=== PATIENT | male | born 1940 | race Caucasian/White ===

== ENCOUNTER 2018-03-05 17:25 | Inpatient (IN) | payer MEDICARE, MEDICAID ==
[~2018-03-05] VITALS: Ht 185.4 cm; Wt 84.3 kg
[~2018-03-05 17:25] MED LIST: ALBU8.5H8 IH; AMLO10TA PO; ATEN100T PO; CHLO25TA2 PO; LANTUS SQ; LEVO500T89 PO; METF-438 PO; PRED10TA23 PO; ZOL50T PO
[2018-03-05 18:10] LABS: BASOPHILS # (AUTO) 0.1 X10'3 (0-0.2); BASOPHILS % (AUTO) 0.5 % (0-1); EOSINOPHILS % (AUTO) 0 % (0-6); HEMOGLOBIN 15.7 g/dl (14.0-17.9); LYMPHOCYTES # (AUTO) 1.1 X10'3 (1.1-4.8); LYMPHOCYTES % (AUTO) 5.3 % (21-51); MEAN CORPUSCULAR HEMOGLOBIN 29.3 PG (27.0-31.0); MEAN CORPUSCULAR HGB CONC 33.5 % (33.0-36.5); MEAN CORPUSCULAR VOLUME 87.5 FL (78-98); MEAN PLATELET VOLUME 9.7 FL (7.4-10.4); MONOCYTES # (AUTO) 1.2 X10'3 (0-0.9); MONOCYTES % (AUTO) 5.8 % (2-12); NEUTROPHILS # (AUTO) 17.9 X10'3 (1.8-7.7); NEUTROPHILS % (AUTO) 88.4 % (42-75); PLATELET COUNT 260 X10'3 (140-440); RED BLOOD COUNT 5.36 X10'6 (4.70-6.10); RED CELL DISTRIBUTION WIDTH 13.9 % (11.5-14.5); WHITE BLOOD COUNT 20.3 X10'3 (4.5-11.0)
[2018-03-05] MEDS ORDERED: ondansetron/PF 4mg/2ml inj IV ONE (18:15)
[2018-03-05] MEDS ORDERED: normal saline 1000ML IV soln IVB ONE (18:15)
[2018-03-05 18:35] LABS: ALANINE AMINOTRANSFERASE 26 U/L (12-78); ALBUMIN 3.6 G/DL (3.4-5.0); ALBUMIN/GLOBULIN RATIO 0.9 (1.1-1.5); ALKALINE PHOSPHATASE 131 IU/L (46-116); ANION GAP 18 (8-16); ASPARTATE AMINO TRANSFERASE 15 U/L (10-37); BILIRUBIN,TOTAL 0.7 MG/DL (0.1-1.0); BLOOD UREA NITROGEN 33 MG/DL (7-18); BUN/CREATININE RATIO 19.2 (5.4-32.0); CALCIUM 9.8 MG/DL (8.5-10.1); CHLORIDE 90 MMOL/L (99-107); CREATININE 1.72 MG/DL (0.60-1.10); MAGNESIUM 2.1 MG/DL (1.5-2.4); POTASSIUM 3.8 MMOL/L (3.5-5.1); SODIUM 128 MMOL/L (135-145); TOTAL CARBON DIOXIDE 20.5 MMOL/L (24-32); TOTAL PROTEIN 7.6 G/DL (6.4-8.2); eGFR 39 ML/MIN
[2018-03-05 18:38] LABS: GLUCOSE 686 MG/DL (70-104)
[2018-03-05 18:47] LABS: CLARITY,URINE SLIGHTLY CLOUDY (Clear); COLOR,URINE YELLOW (Yellow); GLUCOSE, URINE >=1000 mg/dl (Neg); KETONES,URINE 15 mg/dl (Neg); LEUKOCYTE ESTERASE ,URINE NEGATIVE (Neg); NITRITES, URINE NEGATIVE (Neg); OCCULT BLOOD,URINE LARGE (Neg); PROTEIN,URINE 100 mg/dl (Neg); UROBILINOGEN,URINE 0.2 E.U/dL (0.2-1.0)
[2018-03-05] MEDS ORDERED: heparin 10,000 units/1 ML INJ IV ONE (18:50)
[2018-03-05] MEDS ORDERED: heparin 10,000 units/1 ML INJ IV PRN (18:50)
[2018-03-05] MEDS ORDERED: insulin regular, human 10 units/0.1 ml syringe SQ PRN ×2 (18:50→20:40)
[2018-03-05 18:51] LABS: UA COLLECTION TYPE STRAIGHT CATH
[2018-03-05 18:55] LABS: RBC,URINE 20-50 /HPF (0-2)
[2018-03-05 18:56] LABS: BACTERIA,URINE FEW /HPF (Neg); SQUAMOUS EPITHELIAL CELL,UR FEW /LPF (FEW); YEAST FEW /HPF (NEGATIVE)
[2018-03-05] MEDS: normal saline 1000ml 1,000 ML IV SCH ×2 (19:16→19:33)
[2018-03-05 19:17] LABS: PARTIAL THROMBOPLASTIN TIME 28 SECONDS (22-32); PROTHROMBIN TIME 10.3 SECONDS (9.0-12.0)
[2018-03-05] MEDS ORDERED: metoclopramide 5 mg/ml inj IV ONE (19:20)
[2018-03-05] MEDS: insulin regular, DKA only 100 UNIT in normal saline 100ml IV soln 99 ML IV SCH ×2 (20:12)
[2018-03-05] MEDS ORDERED: potassium CL 20mEq in D5-1/2NS 1,000 ML IV PRN (20:37)
[2018-03-05] MEDS ORDERED: insulin regular, DKA only 100 UNIT in normal saline 100ml IV soln 99 ML IV SCH ×2 (20:37)
[2018-03-05] MEDS ORDERED: sodium bicarbonate (8.4%) inj. 50 MEQ in dextrose 5% water 500ml 250 ML IV PRN (20:37)
[2018-03-05] MEDS ORDERED: sodium bicarbonate (8.4%) inj. 100 MEQ in dextrose 5% water 500ml 500 ML IV PRN (20:37)
[2018-03-05] MEDS ORDERED: proCHLORperazine 10 MG/2 ml inj IV PRN (20:40)
[2018-03-05] MEDS ORDERED: potassium Cl 40MEQ/NS 500ml 500 ML IV PRN ×4 (20:40)
[2018-03-05] MEDS ORDERED: morphine 4 MG/ML inj SYRINge IV PRN (20:40)
[2018-03-05] MEDS ORDERED: potassium Cl 20 mEq SR tablet PO PRN ×3 (20:40)
[2018-03-05] MEDS ORDERED: LORazepam 2 mg/ml vial IV ONE (20:40)
[2018-03-05] MEDS ORDERED: sodium phosphate inj. 30 MMOL in dextrose 5%-water 250 ML IV PRN (20:40)
[2018-03-05] MEDS ORDERED: sodium phosphate inj. 15 MMOL in dextrose 5%-water 150 ML IV PRN (20:40)
[2018-03-05] MEDS ORDERED: acetaminophen 325mg tablet PO PRN ×2 (20:40)
[2018-03-05] MEDS ORDERED: Neutra Phos packet PO PRN (20:40)
[2018-03-05 22:19] VITALS: BP 158/72
[2018-03-05 23:00] VITALS: BP 129/56
[2018-03-06] VITALS (23 sets, daily range): BP systolic 126–168; BP diastolic 56–85
[2018-03-06 00:09] LABS: ALBUMIN 2.8 G/DL (3.4-5.0); ANION GAP 12 (8-16); BLOOD UREA NITROGEN 27 MG/DL (7-18); BUN/CREATININE RATIO 19.6 (5.4-32.0); CALCIUM 8.3 MG/DL (8.5-10.1); CHLORIDE 103 MMOL/L (99-107); CREATININE 1.38 MG/DL (0.60-1.10); GLUCOSE 261 MG/DL (70-104); PHOSPHORUS 2.5 MG/DL (2.3-4.5); SODIUM 137 MMOL/L (135-145); TOTAL CARBON DIOXIDE 22.4 MMOL/L (24-32); eGFR 50 ML/MIN
[2018-03-06 00:13] LABS: POTASSIUM 2.9 MMOL/L (3.5-5.1)
[2018-03-06] MEDS: insulin regular, DKA only 100 UNIT in normal saline 100ml IV soln 99 ML IV SCH ×6 (00:17→05:26)
[2018-03-06] MEDS ORDERED: heparin 10,000 units/1 ML INJ IV PRN (00:35)
[2018-03-06] MEDS: normal saline 1000ml 1,000 ML IV SCH ×3 (00:37→04:37)
[2018-03-06] MEDS: potassium CL 20mEq in D5-1/2NS 1,000 ML IV PRN ×2 (00:39→05:12)
[2018-03-06] MEDS: K, MAG and/or Phos replacement - Verify level? MC SCH ×2 (00:49→08:00)
[2018-03-06 04:57] LABS: BASOPHILS # (AUTO) 0.1 X10'3 (0-0.2); BASOPHILS % (AUTO) 0.3 % (0-1); EOSINOPHILS # (AUTO) 0.2 X10'3 (0-0.9); EOSINOPHILS % (AUTO) 0.8 % (0-6); HEMATOCRIT 39.2 % (42.0-52.0); HEMOGLOBIN 13.6 g/dl (14.0-17.9); LYMPHOCYTES % (AUTO) 10.1 % (21-51); MEAN CORPUSCULAR HEMOGLOBIN 30.1 PG (27.0-31.0); MEAN CORPUSCULAR HGB CONC 34.8 % (33.0-36.5); MEAN CORPUSCULAR VOLUME 86.6 FL (78-98); MEAN PLATELET VOLUME 9.1 FL (7.4-10.4); MONOCYTES # (AUTO) 1.5 X10'3 (0-0.9); MONOCYTES % (AUTO) 7.4 % (2-12); NEUTROPHILS # (AUTO) 16.4 X10'3 (1.8-7.7); NEUTROPHILS % (AUTO) 81.4 % (42-75); PLATELET COUNT 231 X10'3 (140-440); RED BLOOD COUNT 4.53 X10'6 (4.70-6.10); RED CELL DISTRIBUTION WIDTH 13.9 % (11.5-14.5); WHITE BLOOD COUNT 20.2 X10'3 (4.5-11.0)
[2018-03-06 04:59] LABS: HEMOGLOBIN A1C 11.5 % (4.5-6.2)
[2018-03-06 05:04] LABS: PROTHROMBIN TIME 10.4 SECONDS (9.0-12.0)
[2018-03-06 05:10] LABS: ALANINE AMINOTRANSFERASE 22 U/L (12-78); ALBUMIN 2.7 G/DL (3.4-5.0); ALBUMIN/GLOBULIN RATIO 0.9 (1.1-1.5); ALKALINE PHOSPHATASE 87 IU/L (46-116); ANION GAP 11 (8-16); ASPARTATE AMINO TRANSFERASE 17 U/L (10-37); BILIRUBIN,TOTAL 0.5 MG/DL (0.1-1.0); BLOOD UREA NITROGEN 24 MG/DL (7-18); BUN/CREATININE RATIO 18.8 (5.4-32.0); CHLORIDE 106 MMOL/L (99-107); CREATININE 1.28 MG/DL (0.60-1.10); GLUCOSE 77 MG/DL (70-104); POTASSIUM 3.2 MMOL/L (3.5-5.1); SODIUM 140 MMOL/L (135-145); TOTAL PROTEIN 5.8 G/DL (6.4-8.2); eGFR 55 ML/MIN
[2018-03-06 05:13] LABS: PHOSPHORUS 1.9 MG/DL (2.3-4.5)
[2018-03-06] MEDS ORDERED: enoxaparin 40mg/0.4ml syringe SUBCUT SCH (08:00)
[2018-03-06] MEDS: K and/or MAG REPLACEMENT MC SCH (08:00)
[2018-03-06] MEDS ORDERED: dextrose 50%-water 50ml dispensing syringe IV PRN ×2 (09:15)
[2018-03-06] MEDS ORDERED: glucagon, human recombinant 1mg kit SUBCUT PRN (09:15)
[2018-03-06] MEDS ORDERED: dextrose ORAL solution 15 GM/59 ML bottle PO PRN ×2 (09:15)
[2018-03-06] MEDS ORDERED: MESSAGE TO PHARMACY PO ONE (09:15)
[2018-03-06] MEDS: potassium cl 20mEq in 1/2 NS 1,000 ML IV SCH ×2 (09:49→19:46)
[2018-03-06] MEDS: pantoprazole 40mg Tablet.DR PO SCH (09:49)
[2018-03-06] MEDS: insulin Lispro (HumaLOG) vial - multi-dose SQ SCH ×3 (10:38→19:52)
[2018-03-06] MEDS ORDERED: INSU100I31 SQ (11:48)
[2018-03-06] MEDS ORDERED: GABA-532 PO (11:51)
[2018-03-06] MEDS: levoFLOXACIN-Levaquin 500mg/D5 100 ML IV SCH (12:27)
[2018-03-06] MEDS: ondansetron/PF 4mg/2ml inj IV PRN (13:34)
[2018-03-06] MEDS: morphine 2 MG/ML inj. syringe IV PRN (19:54)
[2018-03-06] MEDS ORDERED: insulin glargine (Lantus) pen - multi-dose SQ SCH (21:00)
[2018-03-06] MEDS: temazepam 15mg capsule PO PRN (22:19)
[2018-03-07] VITALS (24 sets, daily range): BP systolic 113–168; BP diastolic 47–96
[2018-03-07] MEDS: ondansetron/PF 4mg/2ml inj IV PRN (03:04)
[2018-03-07] MEDS: morphine 2 MG/ML inj. syringe IV PRN (03:04)
[2018-03-07 05:04] LABS: BASOPHILS % (AUTO) 0.5 % (0-1); EOSINOPHILS # (AUTO) 0.1 X10'3 (0-0.9); EOSINOPHILS % (AUTO) 1.7 % (0-6); HEMOGLOBIN 11.8 g/dl (14.0-17.9); LYMPHOCYTES # (AUTO) 1.4 X10'3 (1.1-4.8); LYMPHOCYTES % (AUTO) 16.3 % (21-51); MEAN CORPUSCULAR HEMOGLOBIN 29.5 PG (27.0-31.0); MEAN CORPUSCULAR HGB CONC 33.6 % (33.0-36.5); MEAN CORPUSCULAR VOLUME 87.8 FL (78-98); MEAN PLATELET VOLUME 9.6 FL (7.4-10.4); MONOCYTES # (AUTO) 0.9 X10'3 (0-0.9); MONOCYTES % (AUTO) 9.9 % (2-12); NEUTROPHILS # (AUTO) 6.2 X10'3 (1.8-7.7); NEUTROPHILS % (AUTO) 71.6 % (42-75); PLATELET COUNT 147 X10'3 (140-440); RED BLOOD COUNT 3.98 X10'6 (4.70-6.10); RED CELL DISTRIBUTION WIDTH 13.8 % (11.5-14.5); WHITE BLOOD COUNT 8.7 X10'3 (4.5-11.0)
[2018-03-07] MEDS: potassium cl 20mEq in 1/2 NS 1,000 ML IV SCH ×3 (05:16→20:41)
[2018-03-07 05:31] LABS: ALANINE AMINOTRANSFERASE 12 U/L (12-78); ALBUMIN 2.2 G/DL (3.4-5.0); ALBUMIN/GLOBULIN RATIO 0.7 (1.1-1.5); ALKALINE PHOSPHATASE 74 IU/L (46-116); ANION GAP 12 (8-16); ASPARTATE AMINO TRANSFERASE 18 U/L (10-37); BILIRUBIN,TOTAL 0.4 MG/DL (0.1-1.0); BLOOD UREA NITROGEN 17 MG/DL (7-18); BUN/CREATININE RATIO 14.3 (5.4-32.0); CALCIUM 7.5 MG/DL (8.5-10.1); CHLORIDE 105 MMOL/L (99-107); CREATININE 1.19 MG/DL (0.60-1.10); GLUCOSE 246 MG/DL (70-104); POTASSIUM 3.9 MMOL/L (3.5-5.1); SODIUM 138 MMOL/L (135-145); TOTAL CARBON DIOXIDE 20.8 MMOL/L (24-32); TOTAL PROTEIN 5.2 G/DL (6.4-8.2); eGFR 60 ML/MIN
[2018-03-07] MEDS: K, MAG and/or Phos replacement - Verify level? MC SCH (08:00)
[2018-03-07] MEDS: levoFLOXACIN-Levaquin 500mg/D5 100 ML IV SCH (08:13)
[2018-03-07] MEDS: pantoprazole 40mg Tablet.DR PO SCH (08:13)
[2018-03-07] MEDS: K and/or MAG REPLACEMENT MC SCH (08:51)
[2018-03-07] MEDS: insulin Lispro (HumaLOG) vial - multi-dose SQ SCH ×3 (09:50→19:15)
[2018-03-07] MEDS ORDERED: albuterol 2.5 MG/3 ML nebule NEB PRN (11:05)
[2018-03-07 11:24] LABS: CHOL/HDL RATIO 5.2 (0.00-4.99); CHOLESTEROL 161 MG/DL (0-200); HDL CHOLESTEROL 31 MG/DL (35-60); LDL CHOLESTEROL 111 MG/DL (50-100); TRIGLYCERIDES 138 MG/DL (20-135)
[2018-03-07] MEDS: aspirin 81mg tablet.DR PO SCH (14:03)
[2018-03-07] MEDS: atorvastatin 20mg tablet PO SCH (14:03)
[2018-03-07] MEDS: gabapentin 300mg capsule PO SCH ×2 (14:03→20:34)
[2018-03-07] MEDS: lactobacillus rhamnosus 10,000 MMU CELLS/CAPSULE PO SCH (19:10)
[2018-03-07] MEDS ORDERED: metoprolol tartrate 25mg tablet PO SCH (20:00)
[2018-03-07] MEDS: temazepam 15mg capsule PO PRN (20:34)
[2018-03-07] MEDS: insulin glargine (Lantus) pen - multi-dose SQ SCH (20:40)
[2018-03-08] VITALS (8 sets, daily range): BP systolic 103–168; BP diastolic 45–81
[2018-03-08 04:52] LABS: BASOPHILS % (AUTO) 0.5 % (0-1); EOSINOPHILS # (AUTO) 0.1 X10'3 (0-0.9); EOSINOPHILS % (AUTO) 1.6 % (0-6); HEMATOCRIT 35.3 % (42.0-52.0); HEMOGLOBIN 11.9 g/dl (14.0-17.9); LYMPHOCYTES # (AUTO) 1.6 X10'3 (1.1-4.8); LYMPHOCYTES % (AUTO) 20.2 % (21-51); MEAN CORPUSCULAR HEMOGLOBIN 29.9 PG (27.0-31.0); MEAN CORPUSCULAR HGB CONC 33.8 % (33.0-36.5); MEAN CORPUSCULAR VOLUME 88.4 FL (78-98); MEAN PLATELET VOLUME 9.3 FL (7.4-10.4); MONOCYTES # (AUTO) 0.7 X10'3 (0-0.9); MONOCYTES % (AUTO) 8.5 % (2-12); NEUTROPHILS # (AUTO) 5.4 X10'3 (1.8-7.7); NEUTROPHILS % (AUTO) 69.2 % (42-75); PLATELET COUNT 159 X10'3 (140-440); RED BLOOD COUNT 3.99 X10'6 (4.70-6.10); RED CELL DISTRIBUTION WIDTH 13.5 % (11.5-14.5); WHITE BLOOD COUNT 7.8 X10'3 (4.5-11.0)
[2018-03-08] MEDS: potassium cl 20mEq in 1/2 NS 1,000 ML IV SCH (05:08)
[2018-03-08 05:43] LABS: ALANINE AMINOTRANSFERASE 15 U/L (12-78); ALBUMIN 2.2 G/DL (3.4-5.0); ALBUMIN/GLOBULIN RATIO 0.7 (1.1-1.5); ALKALINE PHOSPHATASE 70 IU/L (46-116); ANION GAP 10 (8-16); ASPARTATE AMINO TRANSFERASE 17 U/L (10-37); BILIRUBIN,TOTAL 0.4 MG/DL (0.1-1.0); BLOOD UREA NITROGEN 17 MG/DL (7-18); BUN/CREATININE RATIO 14.7 (5.4-32.0); CHLORIDE 108 MMOL/L (99-107); CREATININE 1.16 MG/DL (0.60-1.10); GLUCOSE 147 MG/DL (70-104); POTASSIUM 3.9 MMOL/L (3.5-5.1); SODIUM 140 MMOL/L (135-145); TOTAL CARBON DIOXIDE 21.8 MMOL/L (24-32); TOTAL PROTEIN 5.4 G/DL (6.4-8.2); eGFR 61 ML/MIN
[2018-03-08] MEDS: K and/or MAG REPLACEMENT MC SCH (08:00)
[2018-03-08] MEDS ORDERED: atenolol 50mg tablet PO SCH (08:00)
[2018-03-08] MEDS: K, MAG and/or Phos replacement - Verify level? MC SCH (08:00)
[2018-03-08] MEDS: aspirin 81mg tablet.DR PO SCH (08:22)
[2018-03-08] MEDS: sertraline 50mg tablet PO SCH (08:22)
[2018-03-08] MEDS: gabapentin 300mg capsule PO SCH ×3 (08:22→21:26)
[2018-03-08] MEDS: carvedilol 6.25mg tablet PO SCH ×2 (08:22→21:26)
[2018-03-08] MEDS: pantoprazole 40mg Tablet.DR PO SCH (08:22)
[2018-03-08] MEDS: lisinopril 10 MG tablet PO SCH (08:22)
[2018-03-08] MEDS: atorvastatin 20mg tablet PO SCH (08:22)
[2018-03-08] MEDS: levoFLOXACIN-Levaquin 500mg/D5 100 ML IV SCH (08:23)
[2018-03-08] MEDS: amLODIPine 5mg tablet PO SCH (08:23)
[2018-03-08] MEDS: lactobacillus rhamnosus 10,000 MMU CELLS/CAPSULE PO SCH ×2 (08:23→21:26)
[2018-03-08] MEDS: insulin Lispro (HumaLOG) vial - multi-dose SQ SCH ×3 (09:20→17:41)
[2018-03-08] MEDS: chlorthalidone 25mg tablet PO SCH (13:01)
[2018-03-08] MEDS: potassium CL 20mEq in D5-1/2NS 1,000 ML IV PRN (17:39)
[2018-03-08] MEDS: insulin glargine (Lantus) pen - multi-dose SQ SCH (21:37)
[2018-03-09] VITALS (15 sets, daily range): BP systolic 106–201; BP diastolic 47–106
[2018-03-09 05:18] LABS: BASOPHILS % (AUTO) 0.4 % (0-1); EOSINOPHILS # (AUTO) 0.2 X10'3 (0-0.9); EOSINOPHILS % (AUTO) 1.9 % (0-6); HEMATOCRIT 39.9 % (42.0-52.0); HEMOGLOBIN 13.6 g/dl (14.0-17.9); LYMPHOCYTES # (AUTO) 1.5 X10'3 (1.1-4.8); LYMPHOCYTES % (AUTO) 14.3 % (21-51); MEAN CORPUSCULAR HEMOGLOBIN 29.9 PG (27.0-31.0); MEAN CORPUSCULAR HGB CONC 34.2 % (33.0-36.5); MEAN CORPUSCULAR VOLUME 87.4 FL (78-98); MEAN PLATELET VOLUME 9.9 FL (7.4-10.4); MONOCYTES # (AUTO) 0.8 X10'3 (0-0.9); MONOCYTES % (AUTO) 8.2 % (2-12); NEUTROPHILS # (AUTO) 7.7 X10'3 (1.8-7.7); NEUTROPHILS % (AUTO) 75.2 % (42-75); PLATELET COUNT 192 X10'3 (140-440); RED BLOOD COUNT 4.57 X10'6 (4.70-6.10); RED CELL DISTRIBUTION WIDTH 14.1 % (11.5-14.5); WHITE BLOOD COUNT 10.2 X10'3 (4.5-11.0)
[2018-03-09 05:45] LABS: ALANINE AMINOTRANSFERASE 22 U/L (12-78); ALBUMIN 2.7 G/DL (3.4-5.0); ALBUMIN/GLOBULIN RATIO 0.7 (1.1-1.5); ALKALINE PHOSPHATASE 82 IU/L (46-116); ANION GAP 9 (8-16); ASPARTATE AMINO TRANSFERASE 16 U/L (10-37); BILIRUBIN,TOTAL 0.5 MG/DL (0.1-1.0); BLOOD UREA NITROGEN 18 MG/DL (7-18); CALCIUM 8.8 MG/DL (8.5-10.1); CHLORIDE 103 MMOL/L (99-107); GLUCOSE 204 MG/DL (70-104); POTASSIUM 4.2 MMOL/L (3.5-5.1); SODIUM 134 MMOL/L (135-145); TOTAL CARBON DIOXIDE 21.9 MMOL/L (24-32); TOTAL PROTEIN 6.5 G/DL (6.4-8.2); eGFR 59 ML/MIN
[2018-03-09] MEDS ORDERED: LIDOcaine 1% 30ml preserv. free vial ONE (06:15)
[2018-03-09] MEDS ORDERED: nitroGLYCERIN-Tridil 50MG/D5W 250 ML IV ONE (06:15)
[2018-03-09] MEDS ORDERED: iohexol 350 MG/ML 50ML vial IV ONE (06:15)
[2018-03-09] MEDS ORDERED: heparin 1,000unit/ml 10ml vial 10 ML ONE (06:15)
[2018-03-09] MEDS ORDERED: iohexol 350MG/ML 100ml bottle IV ONE ×2 (06:16→07:05)
[2018-03-09] MEDS ORDERED: fentaNYL/PF 50MCG/1 ML 2ML syringe ONE (06:17)
[2018-03-09] MEDS ORDERED: midazolam 2 mg/2 ml injection ONE (06:17)
[2018-03-09] MEDS: lisinopril 10 MG tablet PO SCH ×2 (06:26→20:16)
[2018-03-09] MEDS: amLODIPine 5mg tablet PO SCH (06:26)
[2018-03-09] MEDS: carvedilol 6.25mg tablet PO SCH (06:26)
[2018-03-09] MEDS ORDERED: verapamil 2.5 mg/ml inj IV ONE (06:54)
[2018-03-09] MEDS: pantoprazole 40mg Tablet.DR PO SCH (07:30)
[2018-03-09 07:40] LABS: ISTAT HGB ART 11.6 g/dl (14.0-18.0); ISTAT Hct ART 34 %PCV (42-52); ISTAT O2 SATURATION ARTERIAL 95 % (95-98); ISTAT SOURCE ART
[2018-03-09] MEDS: K, MAG and/or Phos replacement - Verify level? MC SCH (08:00)
[2018-03-09] MEDS: lactobacillus rhamnosus 10,000 MMU CELLS/CAPSULE PO SCH ×2 (08:00→20:16)
[2018-03-09] MEDS: atorvastatin 20mg tablet PO SCH (08:00)
[2018-03-09] MEDS: K and/or MAG REPLACEMENT MC SCH (08:00)
[2018-03-09] MEDS: chlorthalidone 25mg tablet PO SCH (08:00)
[2018-03-09] MEDS: sertraline 50mg tablet PO SCH (08:00)
[2018-03-09] MEDS: gabapentin 300mg capsule PO SCH ×3 (08:27→20:16)
[2018-03-09] MEDS: aspirin 81mg tablet.DR PO SCH (08:30)
[2018-03-09] MEDS: morphine 2 MG/ML inj. syringe IV PRN (08:32)
[2018-03-09] MEDS ORDERED: levalbuterol 1.25mg/0.5ml nebule IH STA (10:07)
[2018-03-09] MEDS ORDERED: furosemide 40mg/4ml inj IV ONE (10:15)
[2018-03-09] MEDS: levoFLOXACIN-Levaquin 500mg/D5 100 ML IV SCH (13:00)
[2018-03-09] MEDS: insulin Lispro (HumaLOG) vial - multi-dose SQ SCH ×2 (14:01→19:06)
[2018-03-09] MEDS: carVEDilol 12.5mg tablet PO SCH (20:16)
[2018-03-09] MEDS: insulin glargine (Lantus) pen - multi-dose SQ SCH (21:35)
[2018-03-10 03:00] VITALS: BP 121/53
[2018-03-10 06:00] VITALS: BP 131/93
[2018-03-10 06:05] LABS: BASOPHILS % (AUTO) 0.2 % (0-1); EOSINOPHILS # (AUTO) 0.2 X10'3 (0-0.9); EOSINOPHILS % (AUTO) 2.1 % (0-6); HEMATOCRIT 36.9 % (42.0-52.0); HEMOGLOBIN 12.8 g/dl (14.0-17.9); LYMPHOCYTES # (AUTO) 1.4 X10'3 (1.1-4.8); LYMPHOCYTES % (AUTO) 15.9 % (21-51); MEAN CORPUSCULAR HGB CONC 34.7 % (33.0-36.5); MEAN CORPUSCULAR VOLUME 86.4 FL (78-98); MEAN PLATELET VOLUME 9.4 FL (7.4-10.4); MONOCYTES # (AUTO) 0.8 X10'3 (0-0.9); MONOCYTES % (AUTO) 9.3 % (2-12); NEUTROPHILS # (AUTO) 6.4 X10'3 (1.8-7.7); NEUTROPHILS % (AUTO) 72.5 % (42-75); PLATELET COUNT 168 X10'3 (140-440); RED BLOOD COUNT 4.27 X10'6 (4.70-6.10); RED CELL DISTRIBUTION WIDTH 14.2 % (11.5-14.5); WHITE BLOOD COUNT 8.9 X10'3 (4.5-11.0)
[2018-03-10 06:47] LABS: ALANINE AMINOTRANSFERASE 23 U/L (12-78); ALBUMIN 2.4 G/DL (3.4-5.0); ALBUMIN/GLOBULIN RATIO 0.7 (1.1-1.5); ALKALINE PHOSPHATASE 70 IU/L (46-116); ANION GAP 9 (8-16); ASPARTATE AMINO TRANSFERASE 17 U/L (10-37); BILIRUBIN,TOTAL 0.5 MG/DL (0.1-1.0); BLOOD UREA NITROGEN 22 MG/DL (7-18); BUN/CREATININE RATIO 17.6 (5.4-32.0); CALCIUM 8.5 MG/DL (8.5-10.1); CHLORIDE 104 MMOL/L (99-107); CREATININE 1.25 MG/DL (0.60-1.10); GLUCOSE 144 MG/DL (70-104); POTASSIUM 3.8 MMOL/L (3.5-5.1); SODIUM 137 MMOL/L (135-145); TOTAL CARBON DIOXIDE 24.3 MMOL/L (24-32); TOTAL PROTEIN 5.7 G/DL (6.4-8.2); eGFR 56 ML/MIN
[2018-03-10] MEDS: pantoprazole 40mg Tablet.DR PO SCH (09:14)
[2018-03-10] MEDS: levoFLOXACIN-Levaquin 500mg/D5 100 ML IV SCH (09:15)
[2018-03-10] MEDS: chlorthalidone 25mg tablet PO SCH (09:18)
[2018-03-10] MEDS: carVEDilol 12.5mg tablet PO SCH ×2 (09:18→20:11)
[2018-03-10] MEDS: gabapentin 300mg capsule PO SCH ×3 (09:19→20:11)
[2018-03-10] MEDS: lactobacillus rhamnosus 10,000 MMU CELLS/CAPSULE PO SCH ×2 (09:19→20:11)
[2018-03-10] MEDS: atorvastatin 20mg tablet PO SCH (09:19)
[2018-03-10] MEDS: amLODIPine 5mg tablet PO SCH (09:19)
[2018-03-10] MEDS: sertraline 50mg tablet PO SCH (09:20)
[2018-03-10] MEDS: lisinopril 10 MG tablet PO SCH ×2 (09:20→20:11)
[2018-03-10] MEDS: enoxaparin 30mg/0.3ml syringe SUBCUT SCH ×2 (09:21→20:10)
[2018-03-10] MEDS: enoxaparin 60mg/0.6ml syringe SUBCUT SCH ×2 (09:22→20:10)
[2018-03-10] MEDS: aspirin 81mg tablet.DR PO SCH (09:22)
[2018-03-10] MEDS: insulin Lispro (HumaLOG) vial - multi-dose SQ SCH ×3 (09:29→19:03)
[2018-03-10 11:00] VITALS: BP 141/59
[2018-03-10] MEDS ORDERED: potassium Cl 20 mEq SR tablet PO STA (11:06)
[2018-03-10] MEDS ORDERED: furosemide 20 MG/2 ML vial IV ONE (11:10)
[2018-03-10] MEDS ORDERED: magnesium 4gm in 100ml NS 100 ML IV PRN (11:15)
[2018-03-10] MEDS ORDERED: magnesium 1gm/100ml D5W IVPB 100 ML IV PRN (11:15)
[2018-03-10] MEDS: spironolactone 25 MG tablet PO SCH (11:29)
[2018-03-10 15:00] VITALS: BP 118/61
[2018-03-10 19:00] VITALS: BP 118/42
[2018-03-10] MEDS: insulin glargine (Lantus) pen - multi-dose SQ SCH (21:40)
[2018-03-10 23:00] VITALS: BP 112/62
[2018-03-11 03:00] VITALS: BP 98/79
[2018-03-11 05:35] LABS: ALANINE AMINOTRANSFERASE 23 U/L (12-78); ALBUMIN 2.3 G/DL (3.4-5.0); ALBUMIN/GLOBULIN RATIO 0.7 (1.1-1.5); ALKALINE PHOSPHATASE 62 IU/L (46-116); ANION GAP 10 (8-16); ASPARTATE AMINO TRANSFERASE 21 U/L (10-37); BILIRUBIN,TOTAL 0.4 MG/DL (0.1-1.0); BLOOD UREA NITROGEN 26 MG/DL (7-18); BUN/CREATININE RATIO 18.2 (5.4-32.0); CALCIUM 8.5 MG/DL (8.5-10.1); CHLORIDE 102 MMOL/L (99-107); CREATININE 1.43 MG/DL (0.60-1.10); GLUCOSE 120 MG/DL (70-104); MAGNESIUM 1.8 MG/DL (1.5-2.4); SODIUM 138 MMOL/L (135-145); TOTAL CARBON DIOXIDE 25.8 MMOL/L (24-32); TOTAL PROTEIN 5.6 G/DL (6.4-8.2); eGFR 48 ML/MIN
[2018-03-11 06:00] VITALS: BP 139/58
[2018-03-11 07:16] LABS: ISTAT Hct MIX 34 %PCV (42-52); ISTAT O2 SATURATION MIX VENOUS 55 % (60-80); ISTAT SOURCE MIX
[2018-03-11] MEDS: pantoprazole 40mg Tablet.DR PO SCH (09:01)
[2018-03-11] MEDS: chlorthalidone 25mg tablet PO SCH (09:02)
[2018-03-11] MEDS: lactobacillus rhamnosus 10,000 MMU CELLS/CAPSULE PO SCH ×2 (09:02→20:25)
[2018-03-11] MEDS: levoFLOXACIN-Levaquin 500mg/D5 100 ML IV SCH (09:02)
[2018-03-11] MEDS: carVEDilol 12.5mg tablet PO SCH ×2 (09:02→20:25)
[2018-03-11] MEDS: gabapentin 300mg capsule PO SCH ×3 (09:03→20:25)
[2018-03-11] MEDS: atorvastatin 20mg tablet PO SCH (09:03)
[2018-03-11] MEDS: amLODIPine 5mg tablet PO SCH (09:04)
[2018-03-11] MEDS: sertraline 50mg tablet PO SCH (09:04)
[2018-03-11] MEDS: lisinopril 10 MG tablet PO SCH ×2 (09:04→20:27)
[2018-03-11] MEDS: enoxaparin 30mg/0.3ml syringe SUBCUT SCH ×2 (09:05→20:24)
[2018-03-11] MEDS: spironolactone 25 MG tablet PO SCH (09:06)
[2018-03-11] MEDS: aspirin 81mg tablet.DR PO SCH (09:06)
[2018-03-11] MEDS: enoxaparin 60mg/0.6ml syringe SUBCUT SCH ×2 (09:06→20:25)
[2018-03-11] MEDS: magnesium Cl slow-release 64mg tablet PO PRN (09:07)
[2018-03-11] MEDS: potassium Cl 20 mEq SR tablet PO PRN ×3 (09:08→17:41)
[2018-03-11] MEDS: insulin Lispro (HumaLOG) vial - multi-dose SQ SCH ×3 (09:20→19:02)
[2018-03-11 11:00] VITALS: BP 116/53
[2018-03-11 15:00] VITALS: BP 117/52
[2018-03-11 19:00] VITALS: BP 137/62
[2018-03-11] MEDS ORDERED: tamsulosin 0.4mg capsule PO SCH (21:00)
[2018-03-11] MEDS ORDERED: warfarin 5mg tablet PO ONE (21:00)
[2018-03-11 23:00] VITALS: BP 122/63
[2018-03-11] MEDS: insulin glargine (Lantus) pen - multi-dose SQ SCH (23:38)
[2018-03-12 02:48] VITALS: BP 133/58
[2018-03-12 04:52] LABS: PROTHROMBIN TIME 10.7 SECONDS (9.0-12.0)
[2018-03-12 05:12] LABS: ALANINE AMINOTRANSFERASE 23 U/L (12-78); ALBUMIN 2.4 G/DL (3.4-5.0); ALBUMIN/GLOBULIN RATIO 0.8 (1.1-1.5); ALKALINE PHOSPHATASE 76 IU/L (46-116); ANION GAP 9 (8-16); ASPARTATE AMINO TRANSFERASE 20 U/L (10-37); BILIRUBIN,TOTAL 0.4 MG/DL (0.1-1.0); BLOOD UREA NITROGEN 27 MG/DL (7-18); BUN/CREATININE RATIO 18.2 (5.4-32.0); CALCIUM 8.6 MG/DL (8.5-10.1); CHLORIDE 101 MMOL/L (99-107); CREATININE 1.48 MG/DL (0.60-1.10); GLUCOSE 102 MG/DL (70-104); MAGNESIUM 1.8 MG/DL (1.5-2.4); POTASSIUM 4.2 MMOL/L (3.5-5.1); SODIUM 135 MMOL/L (135-145); TOTAL PROTEIN 5.6 G/DL (6.4-8.2); eGFR 46 ML/MIN
[2018-03-12 06:00] VITALS: BP 117/43
[2018-03-12] MEDS: pantoprazole 40mg Tablet.DR PO SCH (07:33)
[2018-03-12] MEDS: lactobacillus rhamnosus 10,000 MMU CELLS/CAPSULE PO SCH (07:34)
[2018-03-12] MEDS: chlorthalidone 25mg tablet PO SCH (07:34)
[2018-03-12] MEDS: atorvastatin 20mg tablet PO SCH (07:34)
[2018-03-12] MEDS: levoFLOXACIN-Levaquin 500mg/D5 100 ML IV SCH (07:34)
[2018-03-12] MEDS: carVEDilol 12.5mg tablet PO SCH (07:34)
[2018-03-12] MEDS: amLODIPine 5mg tablet PO SCH (07:35)
[2018-03-12] MEDS: lisinopril 10 MG tablet PO SCH (07:35)
[2018-03-12] MEDS: gabapentin 300mg capsule PO SCH ×2 (07:35→13:15)
[2018-03-12] MEDS: enoxaparin 30mg/0.3ml syringe SUBCUT SCH (07:36)
[2018-03-12] MEDS: sertraline 50mg tablet PO SCH (07:36)
[2018-03-12] MEDS: enoxaparin 60mg/0.6ml syringe SUBCUT SCH (07:37)
[2018-03-12] MEDS: aspirin 81mg tablet.DR PO SCH (07:37)
[2018-03-12] MEDS: spironolactone 25 MG tablet PO SCH (07:37)
[2018-03-12] MEDS: magnesium Cl slow-release 64mg tablet PO PRN (07:39)
[2018-03-12] MEDS: insulin Lispro (HumaLOG) vial - multi-dose SQ SCH ×2 (09:09→13:17)
[2018-03-12 11:00] VITALS: BP 106/45
[2018-03-12 15:00] VITALS: BP 132/63
[2018-03-12] MEDS ORDERED: warfarin 7.5mg tablet PO ONE (21:00)
== END 2018-03-12 17:00 | DRG 280 ==
LOC: ER 17:26 → ED HOLD 20:37 → ICU 2S 22:12 → PCU 3S 03-08 01:26
PROVIDERS: ADMIT Internal Medicine Critical Care Medicine; ATTEND Family Medicine
PROC: 4A023N8 Measurement of Cardiac Sampling and Pressure, Bilateral, Percutaneous Approach (ICD-10-PCS; principal; 2018-03-09)
PROC: B2111ZZ Fluoroscopy of Multiple Coronary Arteries using Low Osmolar Contrast (ICD-10-PCS; 2018-03-09)
PROC: B2151ZZ Fluoroscopy of Left Heart using Low Osmolar Contrast (ICD-10-PCS; 2018-03-09)
DX: I21.4 Non-ST elevation (NSTEMI) myocardial infarction (principal); E10.10 Type 1 diabetes mellitus with ketoacidosis without coma; E87.1 Hypo-osmolality and hyponatremia; C18.9 Malignant neoplasm of colon, unspecified; N17.9 Acute kidney failure, unspecified; I42.0 Dilated cardiomyopathy; I50.20 Unspecified systolic (congestive) heart failure; I13.0 Hypertensive heart and chronic kidney disease with heart failure and stage 1 through stage 4 chronic kidney disease, or unspecified chronic kidney disease; E10.22 Type 1 diabetes mellitus with diabetic chronic kidney disease; N18.9 Chronic kidney disease, unspecified; J44.9 Chronic obstructive pulmonary disease, unspecified; E78.00 Pure hypercholesterolemia, unspecified; E78.5 Hyperlipidemia, unspecified; E86.0 Dehydration; F17.210 Nicotine dependence, cigarettes, uncomplicated; F32.9 Major depressive disorder, single episode, unspecified; F41.9 Anxiety disorder, unspecified; G89.29 Other chronic pain; R31.29 Other microscopic hematuria; I25.10 Atherosclerotic heart disease of native coronary artery without angina pectoris; Z60.2 Problems related to living alone; I44.7 Left bundle-branch block, unspecified; I51.3 Intracardiac thrombosis, not elsewhere classified; K29.00 Acute gastritis without bleeding; Z91.19 Patient's noncompliance with other medical treatment and regimen; Z88.8 Allergy status to other drugs, medicaments and biological substances; Z91.018 Allergy to other foods; Z79.899 Other long term (current) drug therapy; Z79.4 Long term (current) use of insulin; Z82.5 Family history of asthma and other chronic lower respiratory diseases; Z71.6 Tobacco abuse counseling
CPT/HCPCS: 36415; 71045; 74176; 80048; 80053; 80061; 81001; 82803; 82948; 83036; 83735; 83880; 84100; 84132; 84439; 84443; 84484; 85014; 85025; 85347; 85610; 85730; 87070; 87088; 92616; 93005; 93306; 93460; 94640; 94760; 96365; 96372; 96375; 96376; 97110; 97116; 97161; 97530; 99285; A4353; A4620; A6213; A6250; A6257; C1760; C1769; C1894; J1644; J1650; J1815; J1940; J1956; J2060; J2250; J2270; J2405; J2765; J3010; J3480; J3490; J7030; J7614; Q9967

== ENCOUNTER 2018-03-14 23:27 | Emergency (ER) | payer MEDICARE, MEDICAID ==
[~2018-03-14] VITALS: Ht 185.4 cm; Wt 84.1 kg
[~2018-03-14 23:27] MED LIST changes: +GABA-532 PO; +INSU100I31 SQ; -LANTUS SQ; -LEVO500T89 PO; -PRED10TA23 PO
[2018-03-15 00:23] LABS: BASOPHILS # (AUTO) 0.1 X10'3 (0-0.2); EOSINOPHILS # (AUTO) 0.2 X10'3 (0-0.9); EOSINOPHILS % (AUTO) 1.8 % (0-6); HEMATOCRIT 36.7 % (42.0-52.0); HEMOGLOBIN 12.5 g/dl (14.0-17.9); LYMPHOCYTES # (AUTO) 1.5 X10'3 (1.1-4.8); LYMPHOCYTES % (AUTO) 16.1 % (21-51); MEAN CORPUSCULAR HEMOGLOBIN 29.6 PG (27.0-31.0); MEAN PLATELET VOLUME 9.3 FL (7.4-10.4); MONOCYTES # (AUTO) 0.9 X10'3 (0-0.9); MONOCYTES % (AUTO) 9.2 % (2-12); NEUTROPHILS # (AUTO) 6.8 X10'3 (1.8-7.7); NEUTROPHILS % (AUTO) 71.9 % (42-75); PLATELET COUNT 217 X10'3 (140-440); RED BLOOD COUNT 4.23 X10'6 (4.70-6.10); RED CELL DISTRIBUTION WIDTH 13.7 % (11.5-14.5); WHITE BLOOD COUNT 9.4 X10'3 (4.5-11.0)
[2018-03-15 00:34] LABS: ALANINE AMINOTRANSFERASE 34 U/L (12-78); ALBUMIN 2.8 G/DL (3.4-5.0); ALBUMIN/GLOBULIN RATIO 0.7 (1.1-1.5); ALKALINE PHOSPHATASE 102 IU/L (46-116); ANION GAP 8 (8-16); ASPARTATE AMINO TRANSFERASE 22 U/L (10-37); BILIRUBIN,TOTAL 0.2 MG/DL (0.1-1.0); BLOOD UREA NITROGEN 28 MG/DL (7-18); BUN/CREATININE RATIO 18.5 (5.4-32.0); CALCIUM 8.5 MG/DL (8.5-10.1); CHLORIDE 98 MMOL/L (99-107); CREATININE 1.51 MG/DL (0.60-1.10); GLUCOSE 268 MG/DL (70-104); POTASSIUM 4.9 MMOL/L (3.5-5.1); SODIUM 132 MMOL/L (135-145); TOTAL CARBON DIOXIDE 26.3 MMOL/L (24-32); TOTAL PROTEIN 6.6 G/DL (6.4-8.2); eGFR 45 ML/MIN
[2018-03-15 00:36] LABS: CLARITY,URINE CLOUDY (Clear); COLOR,URINE RED (Yellow)
[2018-03-15 00:41] LABS: INR 1.5 INR; PARTIAL THROMBOPLASTIN TIME 41 SECONDS (22-32); PROTHROMBIN TIME 15.4 SECONDS (9.0-12.0)
[2018-03-15 00:52] LABS: UA COLLECTION TYPE FOLEY CATH
[2018-03-15 00:58] LABS: RBC,URINE TNTC /HPF (0-2); WBC,URINE TNTC /HPF (0-4)
[2018-03-15 01:01] LABS: BACTERIA,URINE 1+ /HPF (Neg); SQUAMOUS EPITHELIAL CELL,UR FEW /LPF (FEW)
[2018-03-15] MEDS ORDERED: CEPH500C5 PO (01:12)
[2018-03-15] MEDS ORDERED: cephalexin 250mg capsule PO ONE (01:15)
[2018-03-15 01:21] VITALS: BP 141/63
== END 2018-03-15 01:48 | disposition home or self-care (01) ==
LOC: ER 23:27
DX: R31.9 Hematuria, unspecified (principal); N39.0 Urinary tract infection, site not specified; E78.00 Pure hypercholesterolemia, unspecified; I10 Essential (primary) hypertension; I25.2 Old myocardial infarction; J44.9 Chronic obstructive pulmonary disease, unspecified; E11.9 Type 2 diabetes mellitus without complications; G89.29 Other chronic pain; F17.210 Nicotine dependence, cigarettes, uncomplicated; Z60.2 Problems related to living alone; Z56.0 Unemployment, unspecified; Z91.018 Allergy to other foods; Z88.8 Allergy status to other drugs, medicaments and biological substances; Z79.4 Long term (current) use of insulin; Z79.2 Long term (current) use of antibiotics; Z79.899 Other long term (current) drug therapy
CPT/HCPCS: 36415; 51702; 80053; 81001; 85025; 85610; 85730; 87077; 87088; 99284; J7030

== ENCOUNTER 2018-03-28 12:41 | Outpatient (CLI) | payer OTHER ==
[~2018-03-28 12:41] MED LIST changes: +CEPH500C5 PO
== END 2018-03-28 23:59 | disposition home or self-care (01) ==
LOC: CARD DIAG 12:41
PROVIDERS: ATTEND Internal Medicine
DX: I08.0 Rheumatic disorders of both mitral and aortic valves (principal); I11.9 Hypertensive heart disease without heart failure; J44.9 Chronic obstructive pulmonary disease, unspecified; E11.9 Type 2 diabetes mellitus without complications; Z85.038 Personal history of other malignant neoplasm of large intestine; Z79.4 Long term (current) use of insulin; Z79.84 Long term (current) use of oral hypoglycemic drugs
CPT/HCPCS: 93306

== ENCOUNTER 2018-09-04 08:43 | Inpatient (IN) | payer MEDICARE, MEDICAID | END 2018-09-06 11:08 | disposition home or self-care (01) | LOC: SSTAY O 08:43 → CICU 2S 18:30 | PROC: 027236Z Dilation of Coronary Artery, Three Arteries with Three Drug-eluting Intraluminal Devices, Percutaneous Approach (ICD-10-PCS; principal; ~2018-09-04) | PROC: 027034Z Dilation of Coronary Artery, One Artery with Drug-eluting Intraluminal Device, Percutaneous Approach (ICD-10-PCS; ~2018-09-04) | PROC: 4A023N7 Measurement of Cardiac Sampling and Pressure, Left Heart, Percutaneous Approach (ICD-10-PCS; ~2018-09-04) | PROC: B215YZZ Fluoroscopy of Left Heart using Other Contrast (ICD-10-PCS; ~2018-09-04) | PROC: B211YZZ Fluoroscopy of Multiple Coronary Arteries using Other Contrast (ICD-10-PCS; ~2018-09-04) | PROC: B211YZZ Fluoroscopy of Multiple Coronary Arteries using Other Contrast (ICD-10-PCS; ~2018-09-04) | DX: I25.10 Atherosclerotic heart disease of native coronary artery without angina pectoris (principal); I50.9 Heart failure, unspecified ==

== ENCOUNTER 2019-06-23 00:42 | Inpatient (IN) | payer MEDICARE, MEDICAID ==
[~2019-06-23] VITALS: Ht 185.4 cm; Wt 104.0 kg
[~2019-06-23 00:42] MED LIST changes: -ALBU8.5H8 IH; -AMLO10TA PO; +ASPI-1265 PO; -ATEN100T PO; +ATOR40TA PO; +CARV-50 PO; -CEPH500C5 PO; -CHLO25TA2 PO; +CLOP75TA35 PO; +COU5T PO; +DOCU-28 PO; +FLO0.4C PO; +INSU100I31; -INSU100I31 SQ; +LISI-604 PO; +MV-M1TAB2 PO; +PANT-47 PO; +SERT-153 PO; +SPIR25TA5 PO; -ZOL50T PO
[2019-06-23] MEDS ORDERED: ipratropium/albuterol 3ml nebule ONE (00:49)
[2019-06-23] MEDS ORDERED: ipratropium/albuterol 3ml nebule NEB ONE ×2 (00:50→01:15)
[2019-06-23] MEDS ORDERED: methylPREDNISolone sod succ 125mg/2ml vial IV ONE (01:00)
[2019-06-23] MEDS ORDERED: normal saline 1000ML IV soln IVB ONE (01:05)
[2019-06-23 01:11] LABS: ABG BASE EXCESS -4.5 mmol/L (-2.0-3.0); ABG HCO3 21.6 mmol/L (22.0-26.0); ABG OXYGEN SATURATION 96.1 % (95-98); ABG PCO2 (T) 43.5 mmHg (35.0-45.0); ABG PH (T) 7.314 (7.350-7.450); ABG PO2 (T) 92.1 mmHg (83-108); FCOHb 0.6 % (0.5-1.5); FLOW 6 L/min; FMetHb 0.3 % (0.3-1.12); FO2Hb 95.2 % (94-100); TOTAL HEMOGLOBIN 13.4 G/dl (14.0-17.9)
--- NOTE | 2019-06-23 01:12 | NUR ---
PER MD ELLIS, WAIT TO ADMINISTER THE 2L NS BOLUS.
[2019-06-23] MEDS ORDERED: albuterol 2.5 MG/3 ML nebule NEB ONE (01:15)
[2019-06-23 01:21] LABS: BASOPHILS # (AUTO) 0.2 X10'3 (0-0.2); BASOPHILS % (AUTO) 1.5 % (0-1); EOSINOPHILS # (AUTO) 0.9 X10'3 (0-0.9); EOSINOPHILS % (AUTO) 7.6 % (0-6); HEMATOCRIT 39.5 % (42.0-52.0); HEMOGLOBIN 13.6 g/dl (14.0-17.9); LYMPHOCYTES # (AUTO) 2.4 X10'3 (1.1-4.8); LYMPHOCYTES % (AUTO) 20.5 % (21-51); MEAN CORPUSCULAR HEMOGLOBIN 30.6 PG (27.0-31.0); MEAN CORPUSCULAR HGB CONC 34.3 g/dL (33.0-36.5); MEAN CORPUSCULAR VOLUME 89.2 FL (78-98); MEAN PLATELET VOLUME 9.3 FL (7.4-10.4); MONOCYTES % (AUTO) 8.7 % (2-12); NEUTROPHILS # (AUTO) 7.1 X10'3 (1.8-7.7); NEUTROPHILS % (AUTO) 61.7 % (42-75); PLATELET COUNT 203 X10'3 (140-440); RED BLOOD COUNT 4.43 X10'6 (4.70-6.10); RED CELL DISTRIBUTION WIDTH 15.4 % (11.5-14.5); WHITE BLOOD COUNT 11.5 X10'3 (4.5-11.0)
[2019-06-23 01:34] LABS: ALANINE AMINOTRANSFERASE 26 U/L (12-78); ALBUMIN/GLOBULIN RATIO 1.1 (1.1-1.5); ALKALINE PHOSPHATASE 139 IU/L (46-116); ANION GAP 9 (8-16); ASPARTATE AMINO TRANSFERASE 13 U/L (10-37); BILIRUBIN,TOTAL 0.2 MG/DL (0.1-1.0); BLOOD UREA NITROGEN 25 MG/DL (7-18); BUN/CREATININE RATIO 14.5 (5.4-32.0); CALCIUM 8.5 MG/DL (8.5-10.1); CHLORIDE 106 MMOL/L (99-107); CREATININE 1.72 MG/DL (0.60-1.10); POTASSIUM 4.8 MMOL/L (3.5-5.1); SODIUM 139 MMOL/L (135-145); TOTAL CARBON DIOXIDE 24.2 MMOL/L (24-32); TOTAL PROTEIN 7.7 G/DL (6.4-8.2); eGFR 39 ML/MIN
[2019-06-23 01:35] LABS: GLUCOSE 297 MG/DL (70-104)
[2019-06-23] MEDS ORDERED: furosemide 10 MG/1 ML 10ml inj IV ONE (01:45)
--- NOTE | 2019-06-23 02:04 | NUR ---
ATTEMPTED TO CALL PT DAUGHTER CHIDI PER PT REQUEST. NO ANSWER. LEFT MESSAGE TO CALL BACK.
--- NOTE | 2019-06-23 02:10 | NUR ---
MD ELLIS MADE AWARE OF PT BLOOD PRESSURE, (192/126). NO NEW ORDERS AT THIS TIME.
[2019-06-23] MEDS ORDERED: ondansetron/PF 4mg/2ml inj IV PRN (02:30)
[2019-06-23] MEDS ORDERED: magnesium hydroxide 30ml (MOM) UD suspension PO PRN (02:30)
[2019-06-23] MEDS ORDERED: mag hydrox/Alum hydrox/simeth 30ml oral suspension PO PRN (02:30)
[2019-06-23] MEDS ORDERED: acetaminophen 325mg tablet PO PRN (02:30)
[2019-06-23] MEDS ORDERED: glucagon, human recombinant 1mg kit SUBCUT PRN (02:35)
[2019-06-23] MEDS ORDERED: MESSAGE TO PHARMACY PO ONE (02:35)
[2019-06-23] MEDS ORDERED: dextrose ORAL solution 15 GM/59 ML bottle PO PRN ×2 (02:35)
[2019-06-23] MEDS ORDERED: dextrose 50%-water 50ml dispensing syringe IV PRN ×2 (02:35)
[2019-06-23] MEDS ORDERED: albuterol 2.5 MG/3 ML nebule NEB PRN (02:40)
--- NOTE | 2019-06-23 03:12 | NUR ---
MD MCDERMOTT MADE AWARE OF PT BLOOD PRESSURE 183/85. NO NEW ORDERS AT THIS TIME. WILL CONTINUE TO MONITOR.
[2019-06-23] MEDS ORDERED: FLU VACC QS2019-20 36MOS UP/PF 60 MCG/0.5 ML SYRINGE IMVAC ONE (05:05)
[2019-06-23 05:27] VITALS: BP 158/60
[2019-06-23 06:00] VITALS: BP 166/68
--- NOTE | 2019-06-23 06:10 | NUR ---
Problems reprioritized. Patient report given, questions answered & plan of care reviewed with TAWANA Marin. Addendum: 06/23/19 at 0611 by Skylar Barrera RN Amended: Links added.
--- NOTE | 2019-06-23 06:30 | NUR ---
Patient in room NITIN 351. I have received report from NORBERTO Anderson RN and had the opportunity to ask questions and assume patient care.
[2019-06-23] MEDS ORDERED: warfarin 5mg tablet PO SCH ×2 (08:00→21:00)
[2019-06-23 08:07] LABS: HEMOGLOBIN A1C 7.3 % (4.5-6.2)
--- NOTE | 2019-06-23 08:19 | NUR ---
LAB CALLED PT HAS A TROP OF 1.16. MESSAGED HOSPITALIST WITH RESULTS. AWAITING RESPONSE
--- NOTE | 2019-06-23 09:30 | NUR ---
anuable to scan insulin bottle. have to have pharmacy fix it
[2019-06-23] MEDS: clopidogrel 75mg tablet PO SCH (10:18)
[2019-06-23] MEDS: tamsulosin 0.4mg capsule PO SCH (10:18)
[2019-06-23] MEDS: gabapentin 300mg capsule PO SCH (10:18)
[2019-06-23] MEDS: atorvastatin 20mg tablet PO SCH (10:19)
[2019-06-23] MEDS: sertraline 50mg tablet PO SCH (10:19)
[2019-06-23] MEDS: lisinopril 5mg tablet PO SCH (10:19)
[2019-06-23] MEDS: pantoprazole 40mg Tablet.DR PO SCH (10:19)
[2019-06-23] MEDS: aspirin 81mg tab.chew PO SCH (10:20)
[2019-06-23] MEDS: carVEDilol 12.5mg tablet PO SCH ×2 (10:22→21:01)
[2019-06-23] MEDS: spironolactone 25 MG tablet PO SCH (10:23)
[2019-06-23] MEDS: insulin Lispro (HumaLOG) vial - multi-dose SQ SCH ×3 (10:27→21:03)
--- NOTE | 2019-06-23 10:28 | NUR ---
PHARMACY FIXED INSULIN. GAVE INSULIN
[2019-06-23 11:00] VITALS: BP 176/74
--- NOTE | 2019-06-23 12:43 | NUR ---
Patient in room NITIN 351. I have received report from STEWART GILLIAM and had the opportunity to ask questions and assume patient care. DID NOT GET REPORT FROM NORBERTO Anderson
[2019-06-23] MEDS: enoxaparin 100mg/ml syringe SUBCUT SCH (13:25)
--- NOTE | 2019-06-23 15:25 | NUR ---
DM Consult: A1C 7.3. Pt unable to wake during RD visit. Written DM ed w/ RD contact information left at bedside. Addendum: 06/23/19 at [address] Amended: Links added.
--- NOTE | 2019-06-23 16:11 | NUR ---
PERFORMED PHYSICAL ASSESSMENT AT 0800.
--- NOTE | 2019-06-23 17:30 | NUR ---
Patient in room NITIN 351. I have received report from Tania GILLIAM on Surgical and had the opportunity to ask questions and assume patient care.
--- NOTE | 2019-06-23 17:30 | NUR ---
GAVE REPORT TO MICHAEL
--- NOTE | 2019-06-23 17:50 | NUR ---
1747 Pt brought from Med/Surg to room 314 on his bed. Placed on monitor. Pt is A&O x4. No s/s of distress. He was oriented to room, call light, and TV. He denied any immediate needs. Will report to NOC RN taking over shift.
[2019-06-23 18:00] VITALS: BP 178/68
--- NOTE | 2019-06-23 19:43 | NUR ---
patient just got his food tray. I will give the lantus and cover nutritional correction.
[2019-06-23] MEDS ORDERED: warfarin 5mg tablet PO ONE (21:00)
[2019-06-23] MEDS: nystatin 15 GM powder TP SCH (21:00)
[2019-06-23] MEDS: insulin glargine (Lantus) pen - multi-dose SQ SCH (21:02)
[2019-06-23 22:00] VITALS: BP 161/68
[2019-06-24 02:55] LABS: BASOPHILS % (AUTO) 0.4 % (0-1); EOSINOPHILS % (AUTO) 0.3 % (0-6); HEMATOCRIT 33.1 % (42.0-52.0); HEMOGLOBIN 11.3 g/dl (14.0-17.9); LYMPHOCYTES # (AUTO) 1.5 X10'3 (1.1-4.8); LYMPHOCYTES % (AUTO) 12.4 % (21-51); MEAN CORPUSCULAR HEMOGLOBIN 29.8 PG (27.0-31.0); MEAN CORPUSCULAR VOLUME 87.5 FL (78-98); MEAN PLATELET VOLUME 9.3 FL (7.4-10.4); NEUTROPHILS # (AUTO) 9.6 X10'3 (1.8-7.7); NEUTROPHILS % (AUTO) 78.9 % (42-75); PLATELET COUNT 160 X10'3 (140-440); RED BLOOD COUNT 3.78 X10'6 (4.70-6.10); RED CELL DISTRIBUTION WIDTH 15.2 % (11.5-14.5); WHITE BLOOD COUNT 12.1 X10'3 (4.5-11.0)
[2019-06-24 03:09] LABS: ALANINE AMINOTRANSFERASE 22 U/L (12-78); ALBUMIN 3.4 G/DL (3.4-5.0); ALBUMIN/GLOBULIN RATIO 1.1 (1.1-1.5); ALKALINE PHOSPHATASE 88 IU/L (46-116); ANION GAP 6 (8-16); ASPARTATE AMINO TRANSFERASE 13 U/L (10-37); BILIRUBIN,TOTAL 0.3 MG/DL (0.1-1.0); BLOOD UREA NITROGEN 31 MG/DL (7-18); BUN/CREATININE RATIO 18.6 (5.4-32.0); CALCIUM 8.5 MG/DL (8.5-10.1); CHLORIDE 106 MMOL/L (99-107); CREATININE 1.67 MG/DL (0.60-1.10); GLUCOSE 181 MG/DL (70-104); POTASSIUM 4.4 MMOL/L (3.5-5.1); SODIUM 138 MMOL/L (135-145); TOTAL CARBON DIOXIDE 25.9 MMOL/L (24-32); TOTAL PROTEIN 6.4 G/DL (6.4-8.2); eGFR 40 ML/MIN
[2019-06-24 06:00] VITALS: BP 153/71
--- NOTE | 2019-06-24 06:16 | NUR ---
Problems reprioritized. Patient report given to Tarsha, questions answered & plan of care reviewed with .
--- NOTE | 2019-06-24 06:23 | NUR ---
I have received report from Reuben GILLIAM and had the opportunity to ask questions and assume patient care.
[2019-06-24] MEDS: sertraline 50mg tablet PO SCH (07:20)
[2019-06-24] MEDS: lisinopril 5mg tablet PO SCH (07:20)
[2019-06-24] MEDS: tamsulosin 0.4mg capsule PO SCH (07:20)
[2019-06-24] MEDS: enoxaparin 100mg/ml syringe SUBCUT SCH (07:20)
[2019-06-24] MEDS: gabapentin 300mg capsule PO SCH (07:20)
[2019-06-24] MEDS: aspirin 81mg tab.chew PO SCH (07:20)
[2019-06-24] MEDS: atorvastatin 20mg tablet PO SCH (07:20)
[2019-06-24] MEDS: spironolactone 25 MG tablet PO SCH (07:21)
[2019-06-24] MEDS: carVEDilol 12.5mg tablet PO SCH ×2 (07:21→20:19)
[2019-06-24] MEDS: clopidogrel 75mg tablet PO SCH (07:21)
[2019-06-24] MEDS: pantoprazole 40mg Tablet.DR PO SCH (07:21)
[2019-06-24] MEDS: nystatin 15 GM powder TP SCH ×3 (08:00→20:17)
[2019-06-24] MEDS: insulin Lispro (HumaLOG) vial - multi-dose SQ SCH ×3 (09:12→18:25)
[2019-06-24 11:00] VITALS: BP 151/62
[2019-06-24] MEDS ORDERED: predniSONE 20 mg tablet PO ONE (13:35)
[2019-06-24 15:00] VITALS: BP 153/69
[2019-06-24] MEDS: ipratropium/albuterol 3ml nebule NEB SCH ×3 (15:42→23:48)
[2019-06-24 18:00] VITALS: BP 153/68
[2019-06-24] MEDS ORDERED: warfarin 5mg tablet PO ONE (21:00)
[2019-06-24] MEDS: insulin glargine (Lantus) pen - multi-dose SQ SCH (21:39)
[2019-06-24 22:00] VITALS: BP 136/50
[2019-06-25 02:00] VITALS: BP 168/73
[2019-06-25] MEDS: ipratropium/albuterol 3ml nebule NEB SCH ×2 (03:00→07:08)
[2019-06-25 04:22] LABS: BASOPHILS # (AUTO) 0.1 X10'3 (0-0.2); BASOPHILS % (AUTO) 0.6 % (0-1); EOSINOPHILS # (AUTO) 0.1 X10'3 (0-0.9); EOSINOPHILS % (AUTO) 0.7 % (0-6); HEMATOCRIT 32.1 % (42.0-52.0); HEMOGLOBIN 11.1 g/dl (14.0-17.9); LYMPHOCYTES # (AUTO) 1.4 X10'3 (1.1-4.8); LYMPHOCYTES % (AUTO) 14.6 % (21-51); MEAN CORPUSCULAR HEMOGLOBIN 30.4 PG (27.0-31.0); MEAN CORPUSCULAR HGB CONC 34.5 g/dL (33.0-36.5); MEAN CORPUSCULAR VOLUME 88.1 FL (78-98); MEAN PLATELET VOLUME 9.8 FL (7.4-10.4); MONOCYTES # (AUTO) 0.5 X10'3 (0-0.9); MONOCYTES % (AUTO) 5.3 % (2-12); NEUTROPHILS # (AUTO) 7.6 X10'3 (1.8-7.7); NEUTROPHILS % (AUTO) 78.8 % (42-75); PLATELET COUNT 153 X10'3 (140-440); RED BLOOD COUNT 3.65 X10'6 (4.70-6.10); RED CELL DISTRIBUTION WIDTH 14.8 % (11.5-14.5); WHITE BLOOD COUNT 9.6 X10'3 (4.5-11.0)
[2019-06-25 04:54] LABS: ALANINE AMINOTRANSFERASE 24 U/L (12-78); ALBUMIN 3.2 G/DL (3.4-5.0); ALKALINE PHOSPHATASE 81 IU/L (46-116); ANION GAP 8 (8-16); ASPARTATE AMINO TRANSFERASE 15 U/L (10-37); BILIRUBIN,TOTAL 0.2 MG/DL (0.1-1.0); BLOOD UREA NITROGEN 33 MG/DL (7-18); BUN/CREATININE RATIO 21.9 (5.4-32.0); CALCIUM 8.6 MG/DL (8.5-10.1); CHLORIDE 106 MMOL/L (99-107); CREATININE 1.51 MG/DL (0.60-1.10); GLUCOSE 151 MG/DL (70-104); POTASSIUM 4.6 MMOL/L (3.5-5.1); SODIUM 139 MMOL/L (135-145); TOTAL CARBON DIOXIDE 24.9 MMOL/L (24-32); TOTAL PROTEIN 6.3 G/DL (6.4-8.2); eGFR 45 ML/MIN
[2019-06-25 06:00] VITALS: BP 164/66
--- NOTE | 2019-06-25 06:00 | NUR ---
Patient in room MED 314. I have received report from TAWANA Brown and had the opportunity to ask questions and assume patient care.
--- NOTE | 2019-06-25 06:07 | NUR ---
Problems reprioritized. Patient report given, questions answered & plan of care reviewed with RAYRAY GILLIAM.
[2019-06-25] MEDS ORDERED: atorvastatin 20mg tablet PO SCH (08:04)
[2019-06-25] MEDS ORDERED: predniSONE 20 mg tablet PO SCH (08:30)
[2019-06-25] MEDS: gabapentin 300mg capsule PO SCH (08:34)
[2019-06-25] MEDS: tamsulosin 0.4mg capsule PO SCH (08:34)
[2019-06-25] MEDS: spironolactone 25 MG tablet PO SCH (08:34)
[2019-06-25] MEDS: carVEDilol 12.5mg tablet PO SCH (08:34)
[2019-06-25] MEDS: pantoprazole 40mg Tablet.DR PO SCH (08:35)
[2019-06-25] MEDS: sertraline 50mg tablet PO SCH (08:35)
[2019-06-25] MEDS: lisinopril 5mg tablet PO SCH (08:35)
[2019-06-25] MEDS: clopidogrel 75mg tablet PO SCH (08:35)
[2019-06-25] MEDS: aspirin 81mg tab.chew PO SCH (08:36)
[2019-06-25] MEDS: enoxaparin 100mg/ml syringe SUBCUT SCH (08:36)
[2019-06-25] MEDS: nystatin 15 GM powder TP SCH (08:38)
[2019-06-25] MEDS: insulin Lispro (HumaLOG) vial - multi-dose SQ SCH (08:49)
--- NOTE | 2019-06-25 10:00 | NUR ---
Dr. Jacome visited pt at bedside, pt will be D/C to self. Pt has a motorized scooter, will go to a motel.
[2019-06-25] MEDS ORDERED: ALBU8HFA PO (10:37)
[2019-06-25] MEDS ORDERED: DOXY100C2 PO (10:37)
[2019-06-25] MEDS ORDERED: PRED20TA PO (10:37)
--- NOTE | 2019-06-25 12:40 | NUR ---
RN provided patient teaching on COPD exacerbation, and medications. All questions answered, pt advised that his caregiver will meet him at his motel. Pt wanted to stay on unit for lunch, RN okayed it. Pt left unit in his motorized scooter at 1240 pm, all personal belongings left with pt.
== END 2019-06-25 12:40 | disposition home or self-care (01) | DRG 281 ==
LOC: ER 00:43 → ED HOLD 02:54 → SUR 3N 04:28 → MED 3N 17:40
PROVIDERS: ADMIT Internal Medicine; ATTEND Family Medicine
DX: I21.4 Non-ST elevation (NSTEMI) myocardial infarction (principal); J44.1 Chronic obstructive pulmonary disease with (acute) exacerbation; C18.9 Malignant neoplasm of colon, unspecified; E87.2 Acidosis; E11.40 Type 2 diabetes mellitus with diabetic neuropathy, unspecified; E78.00 Pure hypercholesterolemia, unspecified; E78.5 Hyperlipidemia, unspecified; F17.200 Nicotine dependence, unspecified, uncomplicated; G89.29 Other chronic pain; I25.10 Atherosclerotic heart disease of native coronary artery without angina pectoris; E11.22 Type 2 diabetes mellitus with diabetic chronic kidney disease; I12.9 Hypertensive chronic kidney disease with stage 1 through stage 4 chronic kidney disease, or unspecified chronic kidney disease; N18.9 Chronic kidney disease, unspecified; I44.7 Left bundle-branch block, unspecified; M54.9 Dorsalgia, unspecified; I48.0 Paroxysmal atrial fibrillation; I25.2 Old myocardial infarction; Z79.02 Long term (current) use of antithrombotics/antiplatelets; Z79.82 Long term (current) use of aspirin; Z82.5 Family history of asthma and other chronic lower respiratory diseases; Z85.038 Personal history of other malignant neoplasm of large intestine; Z91.19 Patient's noncompliance with other medical treatment and regimen; Z95.5 Presence of coronary angioplasty implant and graft; Z79.899 Other long term (current) drug therapy; Z88.8 Allergy status to other drugs, medicaments and biological substances
CPT/HCPCS: 36415; 36600; 71045; 80053; 82803; 82948; 83036; 83605; 83880; 84145; 84484; 85018; 85025; 85610; 87040; 87081; 93005; 93306; 94640; 94667; 94760; 96374; 96375; 99285; G0378; J1650; J1815; J1940; J2930; J7512; Q2037

== ENCOUNTER 2019-11-04 00:01 | Emergency (ER) | payer MEDICARE, MEDICAID ==
[~2019-11-04] VITALS: Ht 185.4 cm; Wt 90.9 kg
[~2019-11-04 00:01] MED LIST changes: +ALBU8.5H8 INH; +BUDE10.22 INH; -DOCU-28 PO; +LACT1CAP26 PO; +LEVO750T46 PO; +NITR0.4T51 SL; -PANT-47 PO
[2019-11-04] MEDS ORDERED: methylPREDNISolone sod succ 125mg/2ml vial IV ONE (00:05)
[2019-11-04] MEDS ORDERED: ipratropium/albuterol 3ml nebule NEB ONE (00:05)
[2019-11-04 00:43] LABS: BASOPHILS # (AUTO) 0.1 X10'3 (0-0.2); BASOPHILS % (AUTO) 1.4 % (0-1); EOSINOPHILS # (AUTO) 0.9 X10'3 (0-0.9); EOSINOPHILS % (AUTO) 10.1 % (0-6); HEMATOCRIT 35.2 % (42.0-52.0); HEMOGLOBIN 11.7 g/dl (14.0-17.9); LYMPHOCYTES # (AUTO) 2.1 X10'3 (1.1-4.8); LYMPHOCYTES % (AUTO) 24.1 % (21-51); MEAN CORPUSCULAR HEMOGLOBIN 29.6 PG (27.0-31.0); MEAN CORPUSCULAR HGB CONC 33.1 g/dL (33.0-36.5); MEAN CORPUSCULAR VOLUME 89.4 FL (78-98); MEAN PLATELET VOLUME 9.1 FL (7.4-10.4); MONOCYTES # (AUTO) 0.8 X10'3 (0-0.9); MONOCYTES % (AUTO) 8.8 % (2-12); NEUTROPHILS # (AUTO) 4.8 X10'3 (1.8-7.7); NEUTROPHILS % (AUTO) 55.6 % (42-75); PLATELET COUNT 163 X10'3 (140-440); RED BLOOD COUNT 3.94 X10'6 (4.70-6.10); RED CELL DISTRIBUTION WIDTH 16.6 % (11.5-14.5); WHITE BLOOD COUNT 8.6 X10'3 (4.5-11.0)
[2019-11-04 00:55] LABS: PARTIAL THROMBOPLASTIN TIME 31 SECONDS (22-32)
[2019-11-04 01:08] LABS: ALANINE AMINOTRANSFERASE 17 U/L (12-78); ALBUMIN 3.7 G/DL (3.4-5.0); ALBUMIN/GLOBULIN RATIO 1.1 (1.1-1.5); ALKALINE PHOSPHATASE 121 IU/L (46-116); ANION GAP 10 (8-16); ASPARTATE AMINO TRANSFERASE 11 U/L (10-37); BILIRUBIN,TOTAL 0.2 MG/DL (0.1-1.0); BLOOD UREA NITROGEN 32 MG/DL (7-18); BUN/CREATININE RATIO 15.1 (5.4-32.0); CALCIUM 8.6 MG/DL (8.5-10.1); CHLORIDE 109 MMOL/L (99-107); CREATININE 2.12 MG/DL (0.60-1.10); GLUCOSE 164 MG/DL (70-104); POTASSIUM 4.7 MMOL/L (3.5-5.1); SODIUM 141 MMOL/L (135-145); TOTAL CARBON DIOXIDE 22.1 MMOL/L (24-32); TOTAL PROTEIN 7.1 G/DL (6.4-8.2); eGFR 30 ML/MIN
[2019-11-04 01:40] LABS: TROPONIN I < 0.04 NG/ML (0.0-0.05)
[2019-11-04] MEDS ORDERED: PRED20TA PO (01:49)
[2019-11-04 02:05] VITALS: BP 171/89
[2019-11-04] MEDS ORDERED: METF-436 PO (12:30)
[2019-11-04] MEDS ORDERED: ALBU8.5H8 IH (12:30)
[2019-11-04] MEDS ORDERED: ASPI-611 PO (12:30)
[2019-11-04] MEDS ORDERED: BUDE10.22 INH (12:30)
[2019-11-04] MEDS ORDERED: NITR0.4T51 SL (12:30)
[2019-11-04] MEDS ORDERED: CLOP75TA15 PO (12:30)
[2019-11-04] MEDS ORDERED: PANT40TA4 PO (12:32)
[2019-11-04] MEDS ORDERED: ISOS30TA6 PO (12:32)
== END 2019-11-04 02:07 | disposition home or self-care (01) ==
LOC: ER 00:02
DX: J44.1 Chronic obstructive pulmonary disease with (acute) exacerbation (principal); I50.9 Heart failure, unspecified; E78.00 Pure hypercholesterolemia, unspecified; I11.0 Hypertensive heart disease with heart failure; I25.2 Old myocardial infarction; E11.9 Type 2 diabetes mellitus without complications; G89.29 Other chronic pain; Z56.0 Unemployment, unspecified; Z91.02 Food additives allergy status; Z88.8 Allergy status to other drugs, medicaments and biological substances; Z79.82 Long term (current) use of aspirin; Z79.01 Long term (current) use of anticoagulants; Z79.899 Other long term (current) drug therapy
CPT/HCPCS: 36415; 71045; 80053; 83605; 83880; 84145; 84484; 85025; 85610; 85730; 87040; 93005; 94640; 96374; 99285; J2930; 94760

== ENCOUNTER 2019-11-04 04:53 | Inpatient (IN) | payer MEDICARE, MEDICAID ==
[~2019-11-04] VITALS: Ht 185.4 cm; Wt 88.5 kg
[~2019-11-04 04:53] MED LIST changes: +PRED20TA PO
[2019-11-04] MEDS ORDERED: ipratropium/albuterol 3ml nebule NEB ONE (04:55)
[2019-11-04] MEDS ORDERED: furosemide 40mg/4ml inj IV ONE (05:00)
[2019-11-04] MEDS ORDERED: furosemide 10 MG/1 ML 10ml inj IV ONE (05:00)
[2019-11-04] MEDS ORDERED: HYDROcodone/acetaminophen 5mg/325mg tablet PO PRN (05:30)
[2019-11-04] MEDS ORDERED: potassium Cl 20 mEq SR tablet PO PRN ×2 (05:30)
[2019-11-04] MEDS ORDERED: mag hydrox/Alum hydrox/simeth 30ml oral suspension PO PRN (05:30)
[2019-11-04] MEDS ORDERED: magnesium 4gm in 100ml NS 100 ML IV PRN (05:30)
[2019-11-04] MEDS ORDERED: magnesium 2GM in 50ml NS 50 ML IV PRN (05:30)
[2019-11-04] MEDS ORDERED: potassium CL 10mEq/100ml bag 100 ML IV PRN ×2 (05:30)
[2019-11-04] MEDS ORDERED: ondansetron/PF 4mg/2ml inj IV PRN (05:30)
[2019-11-04] MEDS ORDERED: magnesium hydroxide 30ml (MOM) UD suspension PO PRN (05:30)
[2019-11-04] MEDS ORDERED: acetaminophen 325mg tablet PO PRN (05:30)
[2019-11-04] MEDS ORDERED: enoxaparin 100mg/ml syringe SUBCUT ONE (05:35)
[2019-11-04] MEDS ORDERED: aspirin 325mg tablet PO ONE (05:35)
--- NOTE | 2019-11-04 05:35 | NUR ---
PAGER ID: [phone] MESSAGE: [id number] TRANG SERRANO, TROPONIN 0.79. DR ELLIS ORDERED LOVENOX
[2019-11-04] MEDS ORDERED: glucagon, human recombinant 1mg kit SUBCUT PRN (05:50)
[2019-11-04] MEDS ORDERED: dextrose 50%-water 50ml dispensing syringe IV PRN ×2 (05:50)
[2019-11-04] MEDS ORDERED: dextrose ORAL solution 15 GM/59 ML bottle PO PRN ×2 (05:50)
[2019-11-04] MEDS ORDERED: MESSAGE TO PHARMACY PO ONE (05:50)
[2019-11-04] MEDS ORDERED: labetalol 20mg/4ml (5mg/ml) syringe IV PRN (05:55)
[2019-11-04] MEDS: K and/or MAG REPLACEMENT MC SCH ×2 (08:00→20:00)
[2019-11-04 08:59] VITALS: BP 182/90
--- NOTE | 2019-11-04 09:14 | NUR ---
Dr. Petit called, discussed patients trops of 12.47. Patient is being transferred to Tele.
[2019-11-04 09:40] LABS: BASOPHILS % (AUTO) 0.4 % (0-1); EOSINOPHILS % (AUTO) 0.2 % (0-6); HEMOGLOBIN 11.4 g/dl (14.0-17.9); LYMPHOCYTES # (AUTO) 0.5 X10'3 (1.1-4.8); LYMPHOCYTES % (AUTO) 8.6 % (21-51); MEAN CORPUSCULAR HEMOGLOBIN 29.7 PG (27.0-31.0); MEAN CORPUSCULAR HGB CONC 33.7 g/dL (33.0-36.5); MEAN CORPUSCULAR VOLUME 88.2 FL (78-98); MONOCYTES # (AUTO) 0.1 X10'3 (0-0.9); NEUTROPHILS # (AUTO) 5.3 X10'3 (1.8-7.7); NEUTROPHILS % (AUTO) 89.8 % (42-75); PLATELET COUNT 146 X10'3 (140-440); RED BLOOD COUNT 3.85 X10'6 (4.70-6.10); RED CELL DISTRIBUTION WIDTH 16.4 % (11.5-14.5); WHITE BLOOD COUNT 5.9 X10'3 (4.5-11.0)
[2019-11-04 09:46] LABS: PARTIAL THROMBOPLASTIN TIME 38 SECONDS (22-32)
[2019-11-04 09:59] LABS: ALANINE AMINOTRANSFERASE 20 U/L (12-78); ALBUMIN 3.5 G/DL (3.4-5.0); ALKALINE PHOSPHATASE 111 IU/L (46-116); ANION GAP 11 (8-16); ASPARTATE AMINO TRANSFERASE 51 U/L (10-37); BILIRUBIN,TOTAL 0.2 MG/DL (0.1-1.0); BLOOD UREA NITROGEN 36 MG/DL (7-18); BUN/CREATININE RATIO 16.7 (5.4-32.0); CALCIUM 8.5 MG/DL (8.5-10.1); CHLORIDE 108 MMOL/L (99-107); CREATININE 2.16 MG/DL (0.60-1.10); GLUCOSE 243 MG/DL (70-104); MAGNESIUM 1.3 MG/DL (1.5-2.4); PHOSPHORUS 1.9 MG/DL (2.3-4.5); POTASSIUM 4.8 MMOL/L (3.5-5.1); SODIUM 140 MMOL/L (135-145); TOTAL CARBON DIOXIDE 20.8 MMOL/L (24-32); TOTAL PROTEIN 6.9 G/DL (6.4-8.2); eGFR 30 ML/MIN
[2019-11-04] MEDS: predniSONE 20 mg tablet PO SCH (10:17)
[2019-11-04] MEDS: atorvastatin 20mg tablet PO SCH (10:17)
[2019-11-04] MEDS: docusate sod 100mg capsule PO SCH ×2 (10:17→21:32)
[2019-11-04] MEDS: isosorbide mononitrate 30mg tab.SR.24H PO SCH (10:17)
[2019-11-04] MEDS: furosemide 40mg/4ml inj IV SCH ×2 (10:18→21:32)
--- NOTE | 2019-11-04 10:51 | NUR ---
Report given to Ml GILLIAM on PCU. Patient to room 3018A.
--- NOTE | 2019-11-04 11:09 | NUR ---
Pt with A1c 8.5% recently admitted and seen by JOSHUA for written and verbal DM education with referral to outpatient CDE course and RD contact information. No further education warranted at this time. Will continue to follow. Addendum: 11/04/19 at [address] Amended: Links added.
[2019-11-04 11:11] VITALS: BP 172/84
[2019-11-04 11:37] VITALS: BP 160/81
--- NOTE | 2019-11-04 11:37 | NUR ---
Pt arrived on PCU. Two RN skin check done. Heparin drip not initiated on arrival. Vital signs taken and stable. Pt has no complaints as this time. Will start heparin drip immediately and monitor pt closely.
--- NOTE | 2019-11-04 11:40 | NUR ---
Received critical troponin of 28.67. Paged Dr. Petti and was requested to contact Dr Groves. Called and left a message with his auction clerk.
--- NOTE | 2019-11-04 11:42 | NUR ---
Patient transferred to Tele, off the unit.
--- NOTE | 2019-11-04 11:49 | NUR ---
PAGER ID: [phone] MESSAGE: [id number] Rolando Diaz, Troponin 28.67 Nahomi GILLIAM ext [phone]
[2019-11-04] MEDS ORDERED: albuterol 2.5 MG/3 ML nebule NEB PRN (11:50)
[2019-11-04] MEDS: magnesium Cl slow-release 64mg tablet PO PRN ×2 (12:00→23:46)
[2019-11-04] MEDS: heparin 10,000 units/1 ML INJ IV PRN (12:03)
[2019-11-04] MEDS: heparin 25,000 UNIT/250ml bag 250 ML IV SCH ×2 (12:04→20:57)
[2019-11-04] MEDS ORDERED: METF-436 PO (12:30)
[2019-11-04] MEDS ORDERED: NITR0.4T51 SL (12:30)
[2019-11-04] MEDS ORDERED: ASPI-611 PO (12:30)
[2019-11-04] MEDS ORDERED: BUDE10.22 INH (12:30)
[2019-11-04] MEDS ORDERED: ALBU8.5H8 IH (12:30)
[2019-11-04] MEDS ORDERED: CLOP75TA15 PO (12:30)
[2019-11-04] MEDS ORDERED: ISOS30TA6 PO (12:32)
[2019-11-04] MEDS ORDERED: PANT40TA4 PO (12:32)
[2019-11-04] MEDS: insulin Lispro (HumaLOG) vial - multi-dose SQ SCH ×3 (13:34→21:31)
--- NOTE | 2019-11-04 14:04 | NUR ---
PAGER ID: [phone] MESSAGE: [id number] Rolando easley in groin. Can I put in order for nystatin? Nahomi GILLIAM [id number]
[2019-11-04] MEDS ORDERED: nitroGLYCERIN 0.4mg SUBLingual tab SL PRN (14:25)
--- NOTE | 2019-11-04 14:55 | NUR ---
Called Dr. Groves's office and notified Dr. Groves about elevated troponin. Orders received for an aggrastat bolus per protocol.
[2019-11-04 15:00] VITALS: BP 125/59
[2019-11-04] MEDS ORDERED: tirofiban 5mg in NS 100mL 100 ML IV ONE (15:00)
--- NOTE | 2019-11-04 15:33 | NUR ---
Administered one time bolus of Aggrastat per protocol as ordered by Dr Ayoub. Discontinued order now that bolus has infused. 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
[2019-11-04 18:00] VITALS: BP 148/63
--- NOTE | 2019-11-04 18:04 | NUR ---
PAGER ID: [phone] MESSAGE: [id number] Rolando Diaz critical lab-Troponin 33.5. Nahomi GILLIAM pcu
--- NOTE | 2019-11-04 18:15 | NUR ---
Patient in room PCU 3018. I have received report from Flaca GILLIAM and had the opportunity to ask questions and assume patient care.
--- NOTE | 2019-11-04 18:28 | NUR ---
Problems reprioritized. Patient report given, questions answered & plan of care reviewed with Fidelina GILLIAM.
--- NOTE | 2019-11-04 18:30 | NUR ---
New hire documentation: I have reviewed and agree with all interventions, assessments performed and documented by Nahomi GILLIAM.
[2019-11-04] MEDS: insulin glargine (Lantus) pen - multi-dose SQ SCH (21:32)
[2019-11-04] MEDS: gabapentin 300mg capsule PO SCH (21:33)
[2019-11-04] MEDS: carVEDilol 12.5mg tablet PO SCH (21:33)
[2019-11-04] MEDS: nystatin 15 GM powder TP SCH (21:33)
[2019-11-04 22:00] VITALS: BP 150/87
[2019-11-05 02:50] VITALS: BP 136/65
[2019-11-05 05:37] LABS: BASOPHILS % (AUTO) 0.3 % (0-1); EOSINOPHILS % (AUTO) 0.2 % (0-6); HEMATOCRIT 29.7 % (42.0-52.0); HEMOGLOBIN 10.1 g/dl (14.0-17.9); MEAN CORPUSCULAR HEMOGLOBIN 29.8 PG (27.0-31.0); MEAN CORPUSCULAR HGB CONC 33.9 g/dL (33.0-36.5); MEAN CORPUSCULAR VOLUME 87.9 FL (78-98); MEAN PLATELET VOLUME 9.3 FL (7.4-10.4); MONOCYTES % (AUTO) 9.1 % (2-12); NEUTROPHILS % (AUTO) 81.4 % (42-75); PLATELET COUNT 154 X10'3 (140-440); RED BLOOD COUNT 3.38 X10'6 (4.70-6.10); RED CELL DISTRIBUTION WIDTH 16.5 % (11.5-14.5)
[2019-11-05 06:02] LABS: ALANINE AMINOTRANSFERASE 22 U/L (12-78); ALBUMIN 3.4 G/DL (3.4-5.0); ALKALINE PHOSPHATASE 93 IU/L (46-116); ANION GAP 13 (8-16); ASPARTATE AMINO TRANSFERASE 53 U/L (10-37); BILIRUBIN,TOTAL 0.2 MG/DL (0.1-1.0); BLOOD UREA NITROGEN 44 MG/DL (7-18); CALCIUM 8.4 MG/DL (8.5-10.1); CHLORIDE 108 MMOL/L (99-107); CREATININE 2.31 MG/DL (0.60-1.10); GLUCOSE 205 MG/DL (70-104); MAGNESIUM 1.4 MG/DL (1.5-2.4); PHOSPHORUS 2.9 MG/DL (2.3-4.5); POTASSIUM 4.3 MMOL/L (3.5-5.1); SODIUM 140 MMOL/L (135-145); TOTAL CARBON DIOXIDE 18.9 MMOL/L (24-32); TOTAL PROTEIN 6.8 G/DL (6.4-8.2); eGFR 28 ML/MIN
--- NOTE | 2019-11-05 06:27 | NUR ---
Problems reprioritized. Patient report given, questions answered & plan of care reviewed with TAWANA Hinton and TAWANA Sylvester
--- NOTE | 2019-11-05 06:37 | NUR ---
Patient in room U 3018. I have received report from Fidelina GILLIAM and had the opportunity to ask questions and assume patient care. Patient sleeping in bed with heparin running per protocol.
[2019-11-05 06:39] LABS: HEMOGLOBIN A1C 7.5 % (4.5-6.2)
[2019-11-05 07:00] VITALS: BP 145/58
[2019-11-05] MEDS ORDERED: isosorbide mononitrate 30mg tab.SR.24H PO SCH (08:00)
[2019-11-05] MEDS ORDERED: ATORVASTATIN CALCIUM PO SCH (08:00)
[2019-11-05] MEDS: furosemide 40mg/4ml inj IV SCH ×2 (08:21→20:39)
[2019-11-05] MEDS: predniSONE 20 mg tablet PO SCH (08:21)
[2019-11-05] MEDS: tamsulosin 0.4mg capsule PO SCH (08:21)
[2019-11-05] MEDS: pantoprazole 40mg Tablet.DR PO SCH (08:22)
[2019-11-05] MEDS: atorvastatin 20mg tablet PO SCH (08:22)
[2019-11-05] MEDS: nystatin 15 GM powder TP SCH ×3 (08:22→21:00)
[2019-11-05] MEDS: aspirin 81mg tablet.DR PO SCH (08:23)
[2019-11-05] MEDS: docusate sod 100mg capsule PO SCH ×2 (08:23→20:39)
[2019-11-05] MEDS: spironolactone 25 MG tablet PO SCH (08:23)
[2019-11-05] MEDS: multivitamins, therapeutics tablet PO SCH (08:23)
[2019-11-05] MEDS: lisinopril 5mg tablet PO SCH (08:23)
[2019-11-05] MEDS: sertraline 50mg tablet PO SCH (08:23)
[2019-11-05] MEDS: carVEDilol 12.5mg tablet PO SCH ×2 (08:24→20:39)
[2019-11-05] MEDS: clopidogrel 75mg tablet PO SCH (08:24)
[2019-11-05] MEDS: magnesium Cl slow-release 64mg tablet PO PRN ×2 (08:24→22:21)
[2019-11-05] MEDS: gabapentin 300mg capsule PO SCH ×2 (08:24→20:41)
[2019-11-05] MEDS: K and/or MAG REPLACEMENT MC SCH ×2 (08:28→20:48)
[2019-11-05] MEDS: insulin Lispro (HumaLOG) vial - multi-dose SQ SCH ×4 (08:39→22:21)
[2019-11-05] MEDS: isosorbide mononitrate 30mg tab.SR.24H PO SCH (09:15)
[2019-11-05 11:00] VITALS: BP 138/59
[2019-11-05] MEDS: heparin 10,000 units/1 ML INJ IV PRN (11:35)
[2019-11-05] MEDS: heparin 25,000 UNIT/250ml bag 250 ML IV SCH ×2 (11:36→18:37)
[2019-11-05 15:00] VITALS: BP 122/63
--- NOTE | 2019-11-05 18:35 | NUR ---
Patient in room PCU 3018A. I have received report from TAWANA CONCEPCION and had the opportunity to ask questions and assume patient care. PATIENT RESTING COMFORTABLY FOR BEDSIDE REPORT. HEPARIN GTT INFUSING AT 900 UNITS/HR. ON ROOM AIR AND STABLE AT THIS TIME. WILL CONTINUE TO MONITOR CLOSELY.
--- NOTE | 2019-11-05 18:50 | NUR ---
DR. HOWARD AT BEDSIDE. NEW ORDERS FOR EKG IN THE MORNING. ANTICIPATED DC IN AM.
[2019-11-05] MEDS ORDERED: warfarin 5mg tablet PO ONE (21:00)
--- NOTE | 2019-11-05 21:00 | NUR ---
Problems reprioritized. Patient report given, questions answered & plan of care reviewed with TAWANA HIGHTOWER.
--- NOTE | 2019-11-05 21:04 | NUR ---
report from Max GILLIAM
[2019-11-05] MEDS: insulin glargine (Lantus) pen - multi-dose SQ SCH (22:21)
[2019-11-05 23:52] VITALS: BP 121/58
[2019-11-06 04:08] VITALS: BP 131/53
[2019-11-06 05:50] LABS: BASOPHILS % (AUTO) 0.2 % (0-1); EOSINOPHILS % (AUTO) 0 % (0-6); HEMATOCRIT 30.2 % (42.0-52.0); HEMOGLOBIN 10.2 g/dl (14.0-17.9); LYMPHOCYTES % (AUTO) 10.1 % (21-51); MEAN CORPUSCULAR HEMOGLOBIN 29.8 PG (27.0-31.0); MEAN CORPUSCULAR HGB CONC 33.8 g/dL (33.0-36.5); MEAN CORPUSCULAR VOLUME 88.1 FL (78-98); MEAN PLATELET VOLUME 9.5 FL (7.4-10.4); MONOCYTES # (AUTO) 0.7 X10'3 (0-0.9); MONOCYTES % (AUTO) 6.6 % (2-12); NEUTROPHILS # (AUTO) 8.3 X10'3 (1.8-7.7); NEUTROPHILS % (AUTO) 83.1 % (42-75); PLATELET COUNT 157 X10'3 (140-440); RED BLOOD COUNT 3.43 X10'6 (4.70-6.10); RED CELL DISTRIBUTION WIDTH 16.4 % (11.5-14.5)
[2019-11-06 06:00] VITALS: BP 144/70
[2019-11-06 06:00] LABS: ALANINE AMINOTRANSFERASE 22 U/L (12-78); ALBUMIN 3.4 G/DL (3.4-5.0); ALBUMIN/GLOBULIN RATIO 1.2 (1.1-1.5); ALKALINE PHOSPHATASE 84 IU/L (46-116); ANION GAP 12 (8-16); ASPARTATE AMINO TRANSFERASE 21 U/L (10-37); BILIRUBIN,TOTAL 0.1 MG/DL (0.1-1.0); BLOOD UREA NITROGEN 54 MG/DL (7-18); BUN/CREATININE RATIO 23.1 (5.4-32.0); CALCIUM 8.5 MG/DL (8.5-10.1); CHLORIDE 108 MMOL/L (99-107); CREATININE 2.34 MG/DL (0.60-1.10); GLUCOSE 196 MG/DL (70-104); MAGNESIUM 1.7 MG/DL (1.5-2.4); PHOSPHORUS 3.4 MG/DL (2.3-4.5); POTASSIUM 4.2 MMOL/L (3.5-5.1); SODIUM 141 MMOL/L (135-145); TOTAL PROTEIN 6.3 G/DL (6.4-8.2); eGFR 27 ML/MIN
--- NOTE | 2019-11-06 06:30 | NUR ---
Patient in room PCU 3018A. I have received report from Justin GILLIAM and had the opportunity to ask questions and assume patient care.
[2019-11-06] MEDS: pantoprazole 40mg Tablet.DR PO SCH (07:50)
[2019-11-06] MEDS: furosemide 40mg/4ml inj IV SCH ×2 (07:50→20:04)
[2019-11-06] MEDS: docusate sod 100mg capsule PO SCH ×2 (07:51→20:05)
[2019-11-06] MEDS: gabapentin 300mg capsule PO SCH ×2 (07:51→20:05)
[2019-11-06] MEDS: clopidogrel 75mg tablet PO SCH (07:51)
[2019-11-06] MEDS: spironolactone 25 MG tablet PO SCH (07:51)
[2019-11-06] MEDS: predniSONE 20 mg tablet PO SCH (07:52)
[2019-11-06] MEDS: tamsulosin 0.4mg capsule PO SCH (07:52)
[2019-11-06] MEDS: isosorbide mononitrate 30mg tab.SR.24H PO SCH (07:52)
[2019-11-06] MEDS: multivitamins, therapeutics tablet PO SCH (07:52)
[2019-11-06] MEDS: aspirin 81mg tablet.DR PO SCH (07:52)
[2019-11-06] MEDS: lisinopril 5mg tablet PO SCH (07:52)
[2019-11-06] MEDS: atorvastatin 20mg tablet PO SCH (07:52)
[2019-11-06] MEDS: sertraline 50mg tablet PO SCH (07:52)
[2019-11-06] MEDS: carVEDilol 12.5mg tablet PO SCH ×2 (07:52→20:05)
[2019-11-06] MEDS: nystatin 15 GM powder TP SCH ×3 (07:53→20:08)
[2019-11-06] MEDS: K and/or MAG REPLACEMENT MC SCH ×2 (08:00→20:00)
--- NOTE | 2019-11-06 09:36 | NUR ---
Orders from Dr. Groves at bedside to discontinue heparin gtt, discontinued at this time.
[2019-11-06] MEDS: insulin Lispro (HumaLOG) vial - multi-dose SQ SCH ×4 (09:58→22:28)
[2019-11-06 11:00] VITALS: BP 153/63
[2019-11-06 15:00] VITALS: BP 142/73
--- NOTE | 2019-11-06 18:00 | NUR ---
Patient in room PCU 3018. I have received report from Chyna GILLIAM and had the opportunity to ask questions and assume patient care.
--- NOTE | 2019-11-06 18:35 | NUR ---
Problems reprioritized. Patient report given, questions answered & plan of care reviewed with Monica GILLIAM.
[2019-11-06 19:00] VITALS: BP 112/58
[2019-11-06] MEDS: insulin glargine (Lantus) pen - multi-dose SQ SCH (21:00)
[2019-11-06] MEDS ORDERED: warfarin 3mg tablet PO ONE (21:00)
[2019-11-06] MEDS: apixaban 2.5mg tablet PO SCH (22:30)
[2019-11-06 23:00] VITALS: BP 126/48
[2019-11-07 02:00] VITALS: BP 151/69
[2019-11-07 05:02] LABS: BASOPHILS % (AUTO) 0.4 % (0-1); EOSINOPHILS % (AUTO) 0.1 % (0-6); HEMATOCRIT 32.1 % (42.0-52.0); HEMOGLOBIN 10.7 g/dl (14.0-17.9); LYMPHOCYTES # (AUTO) 1.3 X10'3 (1.1-4.8); LYMPHOCYTES % (AUTO) 11.5 % (21-51); MEAN CORPUSCULAR HEMOGLOBIN 29.4 PG (27.0-31.0); MEAN CORPUSCULAR HGB CONC 33.2 g/dL (33.0-36.5); MEAN CORPUSCULAR VOLUME 88.6 FL (78-98); MEAN PLATELET VOLUME 8.9 FL (7.4-10.4); MONOCYTES % (AUTO) 8.8 % (2-12); NEUTROPHILS # (AUTO) 9.3 X10'3 (1.8-7.7); NEUTROPHILS % (AUTO) 79.2 % (42-75); PLATELET COUNT 169 X10'3 (140-440); RED BLOOD COUNT 3.62 X10'6 (4.70-6.10); RED CELL DISTRIBUTION WIDTH 16.7 % (11.5-14.5); WHITE BLOOD COUNT 11.7 X10'3 (4.5-11.0)
[2019-11-07 05:15] LABS: ALANINE AMINOTRANSFERASE 22 U/L (12-78); ALBUMIN 3.5 G/DL (3.4-5.0); ALBUMIN/GLOBULIN RATIO 1.2 (1.1-1.5); ALKALINE PHOSPHATASE 84 IU/L (46-116); ANION GAP 11 (8-16); ASPARTATE AMINO TRANSFERASE 12 U/L (10-37); BILIRUBIN,TOTAL 0.1 MG/DL (0.1-1.0); BLOOD UREA NITROGEN 66 MG/DL (7-18); BUN/CREATININE RATIO 25.6 (5.4-32.0); CALCIUM 8.5 MG/DL (8.5-10.1); CHLORIDE 107 MMOL/L (99-107); CREATININE 2.58 MG/DL (0.60-1.10); GLUCOSE 140 MG/DL (70-104); MAGNESIUM 1.8 MG/DL (1.5-2.4); PHOSPHORUS 3.8 MG/DL (2.3-4.5); POTASSIUM 4.3 MMOL/L (3.5-5.1); SODIUM 139 MMOL/L (135-145); TOTAL CARBON DIOXIDE 21.3 MMOL/L (24-32); TOTAL PROTEIN 6.5 G/DL (6.4-8.2); eGFR 24 ML/MIN
[2019-11-07 06:00] VITALS: BP 111/71
--- NOTE | 2019-11-07 06:30 | NUR ---
Problems reprioritized. Patient report given, questions answered & plan of care reviewed with Elisabeth GILLIAM.
--- NOTE | 2019-11-07 06:51 | NUR ---
Patient in room PCU 3018. I have received report from Monica GILLIAM and had the opportunity to ask questions and assume patient care.
[2019-11-07] MEDS: gabapentin 300mg capsule PO SCH (07:58)
[2019-11-07] MEDS: tamsulosin 0.4mg capsule PO SCH (07:58)
[2019-11-07] MEDS: lisinopril 5mg tablet PO SCH (07:58)
[2019-11-07] MEDS: apixaban 2.5mg tablet PO SCH (07:58)
[2019-11-07] MEDS: isosorbide mononitrate 30mg tab.SR.24H PO SCH (07:58)
[2019-11-07] MEDS: carVEDilol 12.5mg tablet PO SCH (07:58)
[2019-11-07] MEDS: atorvastatin 20mg tablet PO SCH (07:58)
[2019-11-07] MEDS: clopidogrel 75mg tablet PO SCH (07:58)
[2019-11-07] MEDS: docusate sod 100mg capsule PO SCH (07:58)
[2019-11-07] MEDS: aspirin 81mg tablet.DR PO SCH (07:58)
[2019-11-07] MEDS: multivitamins, therapeutics tablet PO SCH (07:58)
[2019-11-07] MEDS: pantoprazole 40mg Tablet.DR PO SCH (07:58)
[2019-11-07] MEDS: spironolactone 25 MG tablet PO SCH (07:58)
[2019-11-07] MEDS: nystatin 15 GM powder TP SCH ×2 (07:59→13:00)
[2019-11-07] MEDS: K and/or MAG REPLACEMENT MC SCH (07:59)
[2019-11-07] MEDS: sertraline 50mg tablet PO SCH (07:59)
[2019-11-07] MEDS ORDERED: furosemide 40mg/4ml inj IV SCH (08:00)
[2019-11-07] MEDS ORDERED: predniSONE 20 mg tablet PO SCH (08:00)
[2019-11-07] MEDS: insulin Lispro (HumaLOG) vial - multi-dose SQ SCH (08:39)
[2019-11-07 11:00] VITALS: BP 152/59
--- NOTE | 2019-11-07 13:43 | NUR ---
PAGER ID: [phone] MESSAGE: [id number] Rolando Diaz: Patient wants to discharge soon and is threatening to leave AMA. Thanks Gavin
[2019-11-07] MEDS ORDERED: APIX2.5T PO (14:04)
[2019-11-07] MEDS ORDERED: PRED10TA23 PO (14:07)
[2019-11-07 14:45] VITALS: BP 134/56
--- NOTE | 2019-11-07 16:13 | NUR ---
Patient stable for discharge home today. All discharge instrutions given to patient and new medications explained. Prescriptions e-scipted to [facility] (former [facility]) on [address]. Patient left with all belongings and electric scooter. Caregiver Benjamin was notified of discharge and prescriptions will be picked up by her. IV removed and cannula intact.
[2019-11-07] MEDS ORDERED: warfarin 5mg tablet PO ONE (21:00)
--- NOTE | 2019-11-11 09:52 | NUR ---
Case management DC follow up: LMVM post DC status, questions, concerns
== END 2019-11-07 14:53 | disposition home health service (06) | DRG 280 ==
LOC: ER 04:54 → ED HOLD 05:51 → SUR 3N 08:38 → PCU 3S 11:35
PROVIDERS: ADMIT Family Medicine; ATTEND Family Medicine
DX: I21.4 Non-ST elevation (NSTEMI) myocardial infarction (principal); I50.33 Acute on chronic diastolic (congestive) heart failure; J96.90 Respiratory failure, unspecified, unspecified whether with hypoxia or hypercapnia; J44.1 Chronic obstructive pulmonary disease with (acute) exacerbation; N17.9 Acute kidney failure, unspecified; I13.0 Hypertensive heart and chronic kidney disease with heart failure and stage 1 through stage 4 chronic kidney disease, or unspecified chronic kidney disease; I25.10 Atherosclerotic heart disease of native coronary artery without angina pectoris; I48.91 Unspecified atrial fibrillation; E11.22 Type 2 diabetes mellitus with diabetic chronic kidney disease; N18.3 Chronic kidney disease, stage 3 (moderate); Z20.828 Contact with and (suspected) exposure to other viral communicable diseases; B19.20 Unspecified viral hepatitis C without hepatic coma; E78.00 Pure hypercholesterolemia, unspecified; G89.29 Other chronic pain; E04.9 Nontoxic goiter, unspecified; E78.5 Hyperlipidemia, unspecified; M54.9 Dorsalgia, unspecified; F17.210 Nicotine dependence, cigarettes, uncomplicated; F41.9 Anxiety disorder, unspecified; Z95.5 Presence of coronary angioplasty implant and graft; Z85.048 Personal history of other malignant neoplasm of rectum, rectosigmoid junction, and anus; Z71.6 Tobacco abuse counseling; Z79.899 Other long term (current) drug therapy
CPT/HCPCS: 36415; 80053; 82948; 83036; 83735; 84100; 84484; 85025; 85610; 85730; 87081; 87635; 93005; 93306; 94640; 94760; 96374; 97110; 97116; 97161; 97530; 99291; G0378; J1644; J1650; J1815; J1940; J3246; J7512

== ENCOUNTER 2019-11-19 02:15 | Inpatient (IN) | payer MEDICARE, MEDICAID ==
[~2019-11-19] VITALS: Ht 185.4 cm; Wt 100.0 kg
[2019-11-19] VITALS (10 sets, daily range): BP systolic 108–186; BP diastolic 49–91
[~2019-11-19 02:15] MED LIST changes: +ALBU8.5H8 IH; -ALBU8.5H8 INH; +APIX2.5T PO; -ASPI-1265 PO; +ASPI-611 PO; +CLOP75TA15 PO; -CLOP75TA35 PO; -COU5T PO; +ISOS30TA6 PO; -LACT1CAP26 PO; -LEVO750T46 PO; +METF-436 PO; -METF-438 PO; +PANT40TA4 PO; +PRED10TA23 PO; -PRED20TA PO
[2019-11-19] MEDS ORDERED: aspirin 81mg tab.chew PO ONE (02:25)
[2019-11-19] MEDS ORDERED: nitroGLYCERIN 0.4mg SUBLingual tab SL PRN (02:25)
[2019-11-19] MEDS ORDERED: ipratropium/albuterol 3ml nebule NEB ONE (02:30)
[2019-11-19] MEDS ORDERED: albuterol 2.5 MG/3 ML nebule NEB ONE (02:30)
[2019-11-19] MEDS ORDERED: nitroGLYCERIN-Tridil 50MG/D5W 250 ML IV ONE (02:40)
[2019-11-19] MEDS ORDERED: methylPREDNISolone sod succ 125mg/2ml vial IV ONE (02:40)
[2019-11-19 02:47] LABS: BASOPHILS # (AUTO) 0.1 X10'3 (0-0.2); BASOPHILS % (AUTO) 1.1 % (0-1); EOSINOPHILS # (AUTO) 0.4 X10'3 (0-0.9); EOSINOPHILS % (AUTO) 2.8 % (0-6); HEMOGLOBIN 10.4 g/dl (14.0-17.9); LYMPHOCYTES # (AUTO) 1.2 X10'3 (1.1-4.8); LYMPHOCYTES % (AUTO) 8.8 % (21-51); MEAN CORPUSCULAR HEMOGLOBIN 29.6 PG (27.0-31.0); MEAN CORPUSCULAR HGB CONC 32.6 g/dL (33.0-36.5); MEAN CORPUSCULAR VOLUME 90.8 FL (78-98); MEAN PLATELET VOLUME 9.4 FL (7.4-10.4); MONOCYTES # (AUTO) 0.8 X10'3 (0-0.9); MONOCYTES % (AUTO) 6.4 % (2-12); NEUTROPHILS # (AUTO) 10.8 X10'3 (1.8-7.7); NEUTROPHILS % (AUTO) 80.9 % (42-75); PLATELET COUNT 132 X10'3 (140-440); RED BLOOD COUNT 3.52 X10'6 (4.70-6.10); RED CELL DISTRIBUTION WIDTH 17.5 % (11.5-14.5); WHITE BLOOD COUNT 13.3 X10'3 (4.5-11.0)
[2019-11-19] MEDS ORDERED: SITA50TA PO (03:01)
[2019-11-19 03:04] LABS: ALANINE AMINOTRANSFERASE 20 U/L (12-78); ALBUMIN 3.3 G/DL (3.4-5.0); ALBUMIN/GLOBULIN RATIO 1.1 (1.1-1.5); ALKALINE PHOSPHATASE 126 IU/L (46-116); ANION GAP 7 (8-16); ASPARTATE AMINO TRANSFERASE 17 U/L (10-37); BILIRUBIN,TOTAL 0.2 MG/DL (0.1-1.0); BLOOD UREA NITROGEN 37 MG/DL (7-18); BUN/CREATININE RATIO 12.2 (5.4-32.0); CALCIUM 8.3 MG/DL (8.5-10.1); CHLORIDE 113 MMOL/L (99-107); CREATININE 3.04 MG/DL (0.60-1.10); GLUCOSE 356 MG/DL (70-104); MAGNESIUM 1.7 MG/DL (1.5-2.4); SODIUM 138 MMOL/L (135-145); TOTAL CARBON DIOXIDE 17.9 MMOL/L (24-32); TOTAL PROTEIN 6.4 G/DL (6.4-8.2); eGFR 20 ML/MIN
[2019-11-19 03:06] LABS: POTASSIUM 6.6 MMOL/L (3.5-5.1)
[2019-11-19 03:07] LABS: TROPONIN I 3.79 NG/ML (0.0-0.05)
[2019-11-19] MEDS ORDERED: SODIUM ZIRCONIUM CYCLOSILICATE 10 GM POWD.PACK PO STA (03:14)
--- NOTE | 2019-11-19 03:14 | NUR ---
INFORMED EDMD LUDMILA OF PT ARM PAIN INCREASING TO 6/10. RECEIVED VERBAL ORDER FOR MORPHINE 4MG X1 DOSE NOW. ORDER COMPLETED.
[2019-11-19] MEDS ORDERED: calcium chloride 100 MG/1 ML inj IV ONE (03:15)
[2019-11-19] MEDS ORDERED: morphine 4 MG/ML inj SYRINge IV ONE (03:15)
[2019-11-19] MEDS ORDERED: glucagon, human recombinant 1mg kit SUBCUT PRN (03:50)
[2019-11-19] MEDS ORDERED: magnesium hydroxide 30ml (MOM) UD suspension PO PRN (03:50)
[2019-11-19] MEDS ORDERED: mag hydrox/Alum hydrox/simeth 30ml oral suspension PO PRN (03:50)
[2019-11-19] MEDS ORDERED: ondansetron/PF 4mg/2ml inj IV PRN (03:50)
[2019-11-19] MEDS ORDERED: albuterol 2.5 MG/3 ML nebule NEB PRN (03:50)
[2019-11-19] MEDS ORDERED: MESSAGE TO PHARMACY PO ONE (03:50)
[2019-11-19] MEDS ORDERED: dextrose ORAL solution 15 GM/59 ML bottle PO PRN ×2 (03:50)
[2019-11-19] MEDS ORDERED: dextrose 50%-water 50ml dispensing syringe IV PRN ×2 (03:50)
[2019-11-19] MEDS ORDERED: acetaminophen 325mg tablet PO PRN (03:50)
--- NOTE | 2019-11-19 04:35 | NUR ---
Patient in room PCU 3014. I have received report from Kimberly GILLIAM and awaiting arrival of patient to the PCU unit.
--- NOTE | 2019-11-19 04:45 | NUR ---
Patient arrived to the PCU unit from the ED at this time. He is alert and oriented and able to make his needs known. He is a little hard of hearing. Vitals are stable. He is on a Nitro gtt. He denies any chest pain, just states that he has some mild pain radiating down his left arm but not as bad as when he came in. He is on two liters oxygen via nasal cannula. Will continue to monitor.
--- NOTE | 2019-11-19 06:13 | NUR ---
Problems reprioritized. Patient report given, questions answered & plan of care reviewed with TAWANA Rodrigez.Pt awake, Nitro gtt running per MD orders, pt states no chest pain or discomfort at this time.
--- NOTE | 2019-11-19 06:15 | NUR ---
Patient in room U 3014. I have received report from caitlin garcia and had the opportunity to ask questions and assume patient care. Patient awake and alert in room.
[2019-11-19] MEDS: clopidogrel 75mg tablet PO SCH (07:32)
[2019-11-19] MEDS: atorvastatin 20mg tablet PO SCH (07:33)
[2019-11-19] MEDS: pantoprazole 40mg Tablet.DR PO SCH (07:34)
[2019-11-19] MEDS: tamsulosin 0.4mg capsule PO SCH (07:35)
[2019-11-19] MEDS: sertraline 50mg tablet PO SCH (07:35)
[2019-11-19] MEDS: gabapentin 300mg capsule PO SCH ×3 (07:35→21:12)
[2019-11-19] MEDS: carVEDilol 12.5mg tablet PO SCH ×2 (07:36→21:12)
[2019-11-19] MEDS: aspirin 81mg tablet.DR PO SCH (07:37)
[2019-11-19] MEDS: multivitamins, therapeutics tablet PO SCH (07:37)
[2019-11-19] MEDS: insulin Lispro (HumaLOG) vial - multi-dose SQ SCH ×3 (07:48→19:05)
[2019-11-19] MEDS ORDERED: isosorbide mononitrate 30mg tab.SR.24H PO SCH (08:00)
[2019-11-19] MEDS ORDERED: apixaban 2.5mg tablet PO SCH (08:00)
[2019-11-19] MEDS ORDERED: budesonide 0.5mg/2ml UD nebule IH SCH (09:00)
[2019-11-19 09:27] LABS: ALBUMIN 3.3 G/DL (3.4-5.0); ANION GAP 6 (8-16); BLOOD UREA NITROGEN 43 MG/DL (7-18); BUN/CREATININE RATIO 14.1 (5.4-32.0); CALCIUM 9.5 MG/DL (8.5-10.1); CHLORIDE 111 MMOL/L (99-107); CREATININE 3.06 MG/DL (0.60-1.10); GLUCOSE 427 MG/DL (70-104); SODIUM 137 MMOL/L (135-145); TOTAL CARBON DIOXIDE 19.9 MMOL/L (24-32); eGFR 20 ML/MIN
[2019-11-19] MEDS ORDERED: heparin 25,000 UNIT/250ml bag 250 ML IV SCH (09:34)
[2019-11-19] MEDS ORDERED: heparin 10,000 units/1 ML INJ IV PRN ×2 (09:35)
[2019-11-19] MEDS ORDERED: heparin 10,000 units/1 ML INJ IV ONE ×2 (09:35)
[2019-11-19] MEDS ORDERED: isosorbide mononitrate 30mg tab.SR.24H PO ONE (09:35)
[2019-11-19] MEDS: albuterol 2.5 MG/3 ML nebule NEB SCH ×3 (09:40→20:22)
[2019-11-19 09:45] LABS: POTASSIUM 7.3 MMOL/L (3.5-5.1)
[2019-11-19] MEDS ORDERED: furosemide 40mg/4ml inj IV ONE (09:45)
--- NOTE | 2019-11-19 09:49 | NUR ---
Paged Dr Petit re: critical labs PAGER ID: [phone] MESSAGE: Re: Rolando Diaz [id number] Critical Labs 6H Trop 41.87 up from 3H 29.80 and 0H 3.79. K+ up 7.3 from 6.6. Thanks Chyna Shukla [phone]
[2019-11-19] MEDS: budesonide 0.5mg/2ml UD nebule IH SCH ×2 (09:51→20:22)
[2019-11-19 10:03] LABS: BASOPHILS % (AUTO) 0.2 % (0-1); EOSINOPHILS % (AUTO) 0.1 % (0-6); HEMATOCRIT 31.8 % (42.0-52.0); HEMOGLOBIN 10.4 g/dl (14.0-17.9); LYMPHOCYTES # (AUTO) 0.4 X10'3 (1.1-4.8); LYMPHOCYTES % (AUTO) 3.5 % (21-51); MEAN CORPUSCULAR HEMOGLOBIN 29.5 PG (27.0-31.0); MEAN CORPUSCULAR HGB CONC 32.7 g/dL (33.0-36.5); MEAN CORPUSCULAR VOLUME 90.2 FL (78-98); MEAN PLATELET VOLUME 9.5 FL (7.4-10.4); MONOCYTES # (AUTO) 0.1 X10'3 (0-0.9); MONOCYTES % (AUTO) 0.7 % (2-12); NEUTROPHILS # (AUTO) 10.8 X10'3 (1.8-7.7); NEUTROPHILS % (AUTO) 95.5 % (42-75); PLATELET COUNT 123 X10'3 (140-440); RED BLOOD COUNT 3.53 X10'6 (4.70-6.10); RED CELL DISTRIBUTION WIDTH 16.9 % (11.5-14.5); WHITE BLOOD COUNT 11.3 X10'3 (4.5-11.0)
[2019-11-19] MEDS: heparin 25,000 UNIT/250ml bag 250 ML IV SCH ×2 (10:18→16:51)
[2019-11-19] MEDS ORDERED: sodium polystyrene sulfonate 15gm/60ml oral suspension PO ONE (11:15)
[2019-11-19] MEDS ORDERED: CALCIUM GLUC 1gm/50ml NACL,iso 50 ML IV SCH (11:15)
[2019-11-19] MEDS ORDERED: dextrose 50%-water 50ml dispensing syringe IV ONE (11:15)
[2019-11-19] MEDS ORDERED: insulin regular, human 10 units/0.1 ml syringe IV ONE (11:15)
[2019-11-19] MEDS ORDERED: insulin regular, human U-100 3ml vial - multi-dose IV ONE (11:35)
--- NOTE | 2019-11-19 12:16 | NUR ---
DM Consult: Pt A1C 7.5 hx DM admit w/ NSTEMI, CAD, and COPD exacerbation. Glu 300s on admit s/p one time solumedrol dose as well. Pt seen by RD for written/verbal DM ed w/ RD contact information provided. Pt declined verbal ed during RD visit. Written ed left at bedside. Requests milk TIDWM and dislikes peas/carrots; dietary notified. Addendum: 11/19/19 at [address] Amended: Links added.
[2019-11-19] MEDS: sodium bicarbonate (8.4%) inj. 100 MEQ in sodium chloride 0.45% 1,000 ML IV SCH (15:17)
--- NOTE | 2019-11-19 15:31 | NUR ---
MESSAGE: re: Rolando Diaz room 0699v critical 12hr trop 57.8 up from 6 hr 41.87. Thanks. Tania [phone]. Dr. Petit notified of critical value.
[2019-11-19] MEDS ORDERED: hydrALAZINE 20mg/ml inj. IV ONE (18:05)
[2019-11-19] MEDS ORDERED: hydrALAZINE 20mg/ml inj. IV PRN (18:05)
--- NOTE | 2019-11-19 18:37 | NUR ---
[facility] documentation: I have reviewed and agree with all interventions, assessments performed and documented by TAWANA Marin.
--- NOTE | 2019-11-19 18:37 | NUR ---
[facility] Medication Administration: For this medication-pass time frame, all medication were reviewed, dispensed, administered and documented per hospital policy by TAWANA Marin.
--- NOTE | 2019-11-19 18:38 | NUR ---
Problems reprioritized. Patient report given, questions answered & plan of care reviewed with TAWANA Conti. All patient needs met at this time.
--- NOTE | 2019-11-19 18:38 | NUR ---
Patient in room PCU 3014-B. I have received report from TAWANA Clemente and had the opportunity to ask questions and assume patient care. Pt denies CP, SOB, dizziness, n/v, and rated pain 0/10
[2019-11-19] MEDS: insulin glargine (Lantus) pen - multi-dose SQ SCH (21:22)
[2019-11-20 02:00] VITALS: BP 118/53
[2019-11-20 02:02] LABS: BASOPHILS % (AUTO) 0.2 % (0-1); EOSINOPHILS % (AUTO) 0 % (0-6); HEMATOCRIT 29.9 % (42.0-52.0); LYMPHOCYTES # (AUTO) 0.7 X10'3 (1.1-4.8); LYMPHOCYTES % (AUTO) 3.6 % (21-51); MEAN CORPUSCULAR HEMOGLOBIN 29.7 PG (27.0-31.0); MEAN CORPUSCULAR HGB CONC 33.3 g/dL (33.0-36.5); MEAN PLATELET VOLUME 9.8 FL (7.4-10.4); MONOCYTES # (AUTO) 1.3 X10'3 (0-0.9); MONOCYTES % (AUTO) 6.2 % (2-12); NEUTROPHILS # (AUTO) 18.6 X10'3 (1.8-7.7); PLATELET COUNT 130 X10'3 (140-440); RED BLOOD COUNT 3.36 X10'6 (4.70-6.10); RED CELL DISTRIBUTION WIDTH 16.4 % (11.5-14.5); WHITE BLOOD COUNT 20.6 X10'3 (4.5-11.0)
[2019-11-20 02:17] LABS: ALANINE AMINOTRANSFERASE 30 U/L (12-78); ALBUMIN 3.1 G/DL (3.4-5.0); ALBUMIN/GLOBULIN RATIO 1.1 (1.1-1.5); ALKALINE PHOSPHATASE 94 IU/L (46-116); ANION GAP 14 (8-16); ASPARTATE AMINO TRANSFERASE 103 U/L (10-37); BILIRUBIN,TOTAL 0.2 MG/DL (0.1-1.0); BLOOD UREA NITROGEN 48 MG/DL (7-18); BUN/CREATININE RATIO 19.9 (5.4-32.0); CALCIUM 8.9 MG/DL (8.5-10.1); CHLORIDE 108 MMOL/L (99-107); CREATININE 2.41 MG/DL (0.60-1.10); GLUCOSE 230 MG/DL (70-104); POTASSIUM 4.2 MMOL/L (3.5-5.1); SODIUM 141 MMOL/L (135-145); TOTAL CARBON DIOXIDE 18.6 MMOL/L (24-32); eGFR 26 ML/MIN
--- NOTE | 2019-11-20 02:24 | NUR ---
Cardiac PTT: 1934: 60 Therapeutic 0134: 46 Therapeutic
[2019-11-20] MEDS: albuterol 2.5 MG/3 ML nebule NEB SCH ×2 (03:00→07:27)
[2019-11-20 06:00] VITALS: BP 123/67
--- NOTE | 2019-11-20 06:28 | NUR ---
Problems reprioritized. Patient report given, questions answered & plan of care reviewed with TAWANA Clemente. Patient stable at shift change
--- NOTE | 2019-11-20 06:30 | NUR ---
Patient in room PCU 3014. I have received report from TAWANA Conti and had the opportunity to ask questions and assume patient care.
--- NOTE | 2019-11-20 06:49 | NUR ---
Patient in room PCU 3014. I have received report from Sushila GILLIAM and had the opportunity to ask questions and assume patient care.
[2019-11-20] MEDS: budesonide 0.5mg/2ml UD nebule IH SCH ×2 (07:27→19:09)
[2019-11-20] MEDS: gabapentin 300mg capsule PO SCH ×3 (07:53→20:08)
[2019-11-20] MEDS: aspirin 81mg tablet.DR PO SCH (07:54)
[2019-11-20] MEDS: atorvastatin 20mg tablet PO SCH (07:54)
[2019-11-20] MEDS: tamsulosin 0.4mg capsule PO SCH (07:54)
[2019-11-20] MEDS: pantoprazole 40mg Tablet.DR PO SCH (07:54)
[2019-11-20] MEDS: isosorbide mononitrate 30mg tab.SR.24H PO SCH (07:55)
[2019-11-20] MEDS: multivitamins, therapeutics tablet PO SCH (07:55)
[2019-11-20] MEDS: sertraline 50mg tablet PO SCH (07:55)
[2019-11-20] MEDS: clopidogrel 75mg tablet PO SCH (07:55)
[2019-11-20] MEDS: carVEDilol 12.5mg tablet PO SCH ×2 (07:56→20:08)
[2019-11-20] MEDS: insulin Lispro (HumaLOG) vial - multi-dose SQ SCH ×3 (08:27→22:09)
[2019-11-20] MEDS ORDERED: furosemide 40mg/4ml inj IV ONE (09:40)
--- NOTE | 2019-11-20 10:00 | NUR ---
Received new orders from Dr Groves: single troponin, if troponin has decreased stop the Heparin gtt, call pharmacy to ask dosage and start subcut Lovenox BID, Lasix 40mg IV once, Lasix 40mg PO QD, K+ 10meq daily, and an Echo.
[2019-11-20 10:26] LABS: TROPONIN I 29.95 NG/ML (0.0-0.05)
[2019-11-20 11:00] VITALS: BP 138/68
--- NOTE | 2019-11-20 11:03 | NUR ---
Called pharmacy regarding Lovenox dosage, Coby the pharmacist confirmed to order Lovenox 100mg BID.
[2019-11-20] MEDS ORDERED: ipratropium/albuterol 3ml nebule NEB PRN (11:20)
[2019-11-20] MEDS ORDERED: methylPREDNISolone sod succ 125mg/2ml vial IV ONE (11:20)
--- NOTE | 2019-11-20 11:37 | NUR ---
Paged respiratory Re Rolando Diaz [phone] Pt requesting breathing treatment. Thanks [phone]
[2019-11-20] MEDS: azithromycin 250mg tablet PO SCH (11:54)
[2019-11-20] MEDS: sodium bicarbonate (8.4%) inj. 100 MEQ in sodium chloride 0.45% 1,000 ML IV SCH (13:13)
[2019-11-20] MEDS: CefTRIAXone/D5W-Rocephin 1gm 50 ML IV SCH (13:18)
[2019-11-20] MEDS: methylPREDNISolone sod succ 125mg/2ml vial IV SCH ×2 (13:40→20:09)
--- NOTE | 2019-11-20 14:37 | NUR ---
Paged Dr Petit PAGER ID: [phone] MESSAGE: Re: Rolando Diaz Rm [id number] Pt only had a 24H Tele order, would you like me to extend the order? Thanks Chyna Shukla [phone]
[2019-11-20 15:00] VITALS: BP 101/54
[2019-11-20] MEDS: ipratropium/albuterol 3ml nebule NEB SCH ×3 (15:32→23:03)
--- NOTE | 2019-11-20 17:58 | NUR ---
[facility] documentation: I have reviewed and agree with all interventions, assessments performed and documented by TAWANA Marin.
--- NOTE | 2019-11-20 18:00 | NUR ---
[facility] Medication Administration: For this medication-pass time frame, all medication were reviewed, dispensed, administered and documented per hospital policy by TAWANA Marin.
--- NOTE | 2019-11-20 18:26 | NUR ---
Problems reprioritized. Patient report given, questions answered & plan of care reviewed with Emeterio RN.
--- NOTE | 2019-11-20 18:30 | NUR ---
Problems reprioritized. Patient report given, questions answered & plan of care reviewed with TAWANA Storm. Pt eating dinner independently, all needs met at this time.
[2019-11-20] MEDS ORDERED: heparin, porcine 5000 units/ml vial SQ SCH (20:00)
[2019-11-20] MEDS ORDERED: enoxaparin 100mg/ml syringe SUBCUT SCH (20:00)
--- NOTE | 2019-11-20 20:05 | NUR ---
Problems reprioritized. Patient report given, questions answered & plan of care reviewed with Sara GILLIAM.
[2019-11-20] MEDS: furosemide 40mg tablet PO SCH (20:08)
[2019-11-20] MEDS: apixaban 2.5mg tablet PO SCH (20:09)
--- NOTE | 2019-11-20 21:10 | NUR ---
Patient in room PCU 3014. I have received report from Emeterio GILLIAM and had the opportunity to ask questions and assume patient care.
[2019-11-20 22:00] VITALS: BP 102/46
[2019-11-20] MEDS: insulin glargine (Lantus) pen - multi-dose SQ SCH (22:11)
[2019-11-21 02:00] VITALS: BP 104/47
[2019-11-21] MEDS: methylPREDNISolone sod succ 125mg/2ml vial IV SCH ×2 (02:00→09:45)
[2019-11-21] MEDS: ipratropium/albuterol 3ml nebule NEB SCH ×2 (03:15→07:15)
[2019-11-21 05:53] LABS: BASOPHILS % (AUTO) 0.1 % (0-1); EOSINOPHILS % (AUTO) 0 % (0-6); HEMATOCRIT 25.3 % (42.0-52.0); HEMOGLOBIN 8.4 g/dl (14.0-17.9); LYMPHOCYTES # (AUTO) 0.4 X10'3 (1.1-4.8); LYMPHOCYTES % (AUTO) 5.2 % (21-51); MEAN CORPUSCULAR HEMOGLOBIN 29.5 PG (27.0-31.0); MEAN CORPUSCULAR HGB CONC 33.3 g/dL (33.0-36.5); MEAN CORPUSCULAR VOLUME 88.6 FL (78-98); MONOCYTES # (AUTO) 0.2 X10'3 (0-0.9); MONOCYTES % (AUTO) 2.5 % (2-12); NEUTROPHILS % (AUTO) 92.2 % (42-75); PLATELET COUNT 103 X10'3 (140-440); RED BLOOD COUNT 2.86 X10'6 (4.70-6.10); RED CELL DISTRIBUTION WIDTH 16.8 % (11.5-14.5); WHITE BLOOD COUNT 7.5 X10'3 (4.5-11.0)
[2019-11-21 06:00] VITALS: BP 112/46
[2019-11-21 06:08] LABS: ALANINE AMINOTRANSFERASE 25 U/L (12-78); ALBUMIN 2.6 G/DL (3.4-5.0); ALBUMIN/GLOBULIN RATIO 0.9 (1.1-1.5); ALKALINE PHOSPHATASE 66 IU/L (46-116); ANION GAP 12 (8-16); ASPARTATE AMINO TRANSFERASE 49 U/L (10-37); BILIRUBIN,TOTAL 0.3 MG/DL (0.1-1.0); BLOOD UREA NITROGEN 59 MG/DL (7-18); BUN/CREATININE RATIO 23.3 (5.4-32.0); CALCIUM 7.9 MG/DL (8.5-10.1); CHLORIDE 106 MMOL/L (99-107); CREATININE 2.53 MG/DL (0.60-1.10); GLUCOSE 315 MG/DL (70-104); POTASSIUM 3.5 MMOL/L (3.5-5.1); SODIUM 140 MMOL/L (135-145); TOTAL CARBON DIOXIDE 22.5 MMOL/L (24-32); TOTAL PROTEIN 5.4 G/DL (6.4-8.2); eGFR 25 ML/MIN
--- NOTE | 2019-11-21 06:43 | NUR ---
Problems reprioritized. Patient report given, questions answered & plan of care reviewed with Chyna Fish RN.
[2019-11-21] MEDS: budesonide 0.5mg/2ml UD nebule IH SCH (07:15)
--- NOTE | 2019-11-21 07:46 | NUR ---
Patient in room PCU 3014. I have received report from Max GILLIAM and had the opportunity to ask questions and assume patient care.
[2019-11-21] MEDS ORDERED: potassium chloride 10mEq ER tablet PO SCH (08:00)
[2019-11-21 09:22] LABS: URINE AMPHETAMINE SCREEN NEGATIVE (Neg); URINE BARBITUATE SCREEN NEGATIVE (Neg); URINE BENZODIAZEPINES SCREEN NEGATIVE (Neg); URINE CANNABINOID SCREEN NEGATIVE (Neg); URINE COCAINE SCREEN NEGATIVE (Neg); URINE METHADONE SCREEN NEGATIVE (Neg); URINE OPIATE SCREEN NEGATIVE (Neg); URINE PHENCYCLIDINE SCREEN NEGATIVE (Neg)
[2019-11-21] MEDS: CefTRIAXone/D5W-Rocephin 1gm 50 ML IV SCH (09:35)
[2019-11-21] MEDS: insulin Lispro (HumaLOG) vial - multi-dose SQ SCH (09:37)
[2019-11-21] MEDS: azithromycin 250mg tablet PO SCH (09:39)
[2019-11-21] MEDS: multivitamins, therapeutics tablet PO SCH (09:39)
[2019-11-21] MEDS: atorvastatin 20mg tablet PO SCH (09:40)
[2019-11-21] MEDS: apixaban 2.5mg tablet PO SCH (09:40)
[2019-11-21] MEDS: isosorbide mononitrate 30mg tab.SR.24H PO SCH (09:40)
[2019-11-21] MEDS: aspirin 81mg tablet.DR PO SCH (09:41)
[2019-11-21] MEDS: sertraline 50mg tablet PO SCH (09:41)
[2019-11-21] MEDS: pantoprazole 40mg Tablet.DR PO SCH (09:41)
[2019-11-21] MEDS: clopidogrel 75mg tablet PO SCH (09:41)
[2019-11-21] MEDS: gabapentin 300mg capsule PO SCH (09:42)
[2019-11-21] MEDS: furosemide 40mg tablet PO SCH (09:42)
[2019-11-21] MEDS: tamsulosin 0.4mg capsule PO SCH (09:42)
[2019-11-21] MEDS: carVEDilol 12.5mg tablet PO SCH (09:44)
--- NOTE | 2019-11-21 11:15 | NUR ---
Dr. Petit at bedside, patient stated he wanted to go home, Dr. Petit told the patient he would not discharge him at this time, the patient opted to leave AMA. Paperwork signed, telemetry removed, IVs removed, catheter tips intact, hemostasis achieved, wrist bands removed. Patient is in wheelchair at home at baseline so patient was taken down in wheelchair to meet family member.
== END 2019-11-21 11:20 | disposition left against medical advice (07) | DRG 280 ==
LOC: ER 02:15 → ED HOLD 03:55 → PCU 3S 05:00
PROVIDERS: ADMIT Internal Medicine; ATTEND Family Medicine
DX: I22.2 Subsequent non-ST elevation (NSTEMI) myocardial infarction (principal); I50.33 Acute on chronic diastolic (congestive) heart failure; I13.0 Hypertensive heart and chronic kidney disease with heart failure and stage 1 through stage 4 chronic kidney disease, or unspecified chronic kidney disease; N17.9 Acute kidney failure, unspecified; E87.2 Acidosis; I21.4 Non-ST elevation (NSTEMI) myocardial infarction; E87.5 Hyperkalemia; N18.9 Chronic kidney disease, unspecified; E11.22 Type 2 diabetes mellitus with diabetic chronic kidney disease; E11.40 Type 2 diabetes mellitus with diabetic neuropathy, unspecified; E78.00 Pure hypercholesterolemia, unspecified; E78.5 Hyperlipidemia, unspecified; F17.200 Nicotine dependence, unspecified, uncomplicated; F41.9 Anxiety disorder, unspecified; G89.29 Other chronic pain; M54.9 Dorsalgia, unspecified; Z60.2 Problems related to living alone; M79.602 Pain in left arm; I25.10 Atherosclerotic heart disease of native coronary artery without angina pectoris; I44.7 Left bundle-branch block, unspecified; E04.9 Nontoxic goiter, unspecified; Z53.29 Procedure and treatment not carried out because of patient's decision for other reasons; I48.91 Unspecified atrial fibrillation; J43.9 Emphysema, unspecified; Z66 Do not resuscitate; Z82.5 Family history of asthma and other chronic lower respiratory diseases; Z85.048 Personal history of other malignant neoplasm of rectum, rectosigmoid junction, and anus; Z95.1 Presence of aortocoronary bypass graft; Z95.5 Presence of coronary angioplasty implant and graft; Z88.8 Allergy status to other drugs, medicaments and biological substances; I25.2 Old myocardial infarction; Z79.899 Other long term (current) drug therapy; Z79.82 Long term (current) use of aspirin; Z79.4 Long term (current) use of insulin; Z71.6 Tobacco abuse counseling
CPT/HCPCS: 36415; 71045; 80048; 80053; 80305; 82948; 83735; 83880; 84132; 84145; 84443; 84484; 85025; 85610; 85730; 87040; 87081; 87088; 93005; 93308; 94640; 94760; 96374; 99291; G0378; J0360; J0696; J1644; J1815; J1940; J2270; J2930; J3490; J7626

== ENCOUNTER 2020-02-04 19:07 | Inpatient (IN) | payer MEDICARE, MEDICAID ==
[~2020-02-04] VITALS: Ht 185.4 cm; Wt 90.9 kg
[~2020-02-04 19:07] MED LIST changes: -ASPI-611 PO; +FURO20TA4 PO; -GABA-532 PO; +GABA300C PO; -INSU100I31; +INSU100I31 SQ; +IPRA3AMP9 NEB; -METF-436 PO; -NITR0.4T51 SL; -PRED10TA23 PO; +SITA50TA PO
[2020-02-04 19:58] LABS: BASOPHILS # (AUTO) 0.1 X10'3 (0-0.2); BASOPHILS % (AUTO) 1.3 % (0-1); EOSINOPHILS # (AUTO) 0.6 X10'3 (0-0.9); EOSINOPHILS % (AUTO) 7.6 % (0-6); HEMATOCRIT 29.1 % (42.0-52.0); HEMOGLOBIN 9.5 g/dl (14.0-17.9); LYMPHOCYTES # (AUTO) 1.3 X10'3 (1.1-4.8); LYMPHOCYTES % (AUTO) 15.7 % (21-51); MEAN CORPUSCULAR HEMOGLOBIN 28.8 PG (27.0-31.0); MEAN CORPUSCULAR HGB CONC 32.8 g/dL (33.0-36.5); MEAN CORPUSCULAR VOLUME 87.9 FL (78-98); MEAN PLATELET VOLUME 9.3 FL (7.4-10.4); MONOCYTES # (AUTO) 0.7 X10'3 (0-0.9); MONOCYTES % (AUTO) 8.6 % (2-12); NEUTROPHILS # (AUTO) 5.4 X10'3 (1.8-7.7); NEUTROPHILS % (AUTO) 66.8 % (42-75); PLATELET COUNT 138 X10'3 (140-440); RED BLOOD COUNT 3.31 X10'6 (4.70-6.10); RED CELL DISTRIBUTION WIDTH 16.6 % (11.5-14.5); WHITE BLOOD COUNT 8.1 X10'3 (4.5-11.0)
[2020-02-04 20:15] LABS: ALANINE AMINOTRANSFERASE 16 U/L (12-78); ALBUMIN 3.3 G/DL (3.4-5.0); ALKALINE PHOSPHATASE 117 IU/L (46-116); ANION GAP 8 (8-16); ASPARTATE AMINO TRANSFERASE 13 U/L (10-37); BILIRUBIN,TOTAL 0.3 MG/DL (0.1-1.0); BLOOD UREA NITROGEN 29 MG/DL (7-18); BUN/CREATININE RATIO 14.6 (5.4-32.0); CALCIUM 8.3 MG/DL (8.5-10.1); CHLORIDE 109 MMOL/L (99-107); CREATININE 1.98 MG/DL (0.60-1.10); GLUCOSE 129 MG/DL (70-104); POTASSIUM 4.2 MMOL/L (3.5-5.1); SODIUM 140 MMOL/L (135-145); TOTAL PROTEIN 6.5 G/DL (6.4-8.2); eGFR 33 ML/MIN
[2020-02-04] MEDS ORDERED: albuterol 2.5 MG/3 ML nebule CONTNEB PRN (20:35)
[2020-02-04] MEDS ORDERED: methylPREDNISolone sod succ 125mg/2ml vial IV ONE (20:40)
[2020-02-04 22:11] LABS: ABG BASE EXCESS -6.4 mmol/L (-2.0-2.0); ABG HCO3 19.4 mmol/L (22.0-26.0); ABG OXYGEN SATURATION 94.6 % (94-97); ABG PO2 (T) 76.6 mmHg (75.0-100.0); ALLEN'S TEST POSITIVE; FCOHb 0.2 % (0.0-3.9); FLOW 1 L/min; FMetHb 0.1 % (0.0-1.5); FO2Hb 94.3 % (94-97); PATIENT TEMPERATURE 36.7; TOTAL HEMOGLOBIN 10.3 G/dl (14.0-18.0)
[2020-02-04] MEDS ORDERED: furosemide 10 MG/1 ML 10ml inj IV ONE (23:05)
[2020-02-04] MEDS ORDERED: nitroGLYCERIN 0.4mg SUBLingual tab SL ONE (23:19)
[2020-02-04] MEDS ORDERED: nitroGLYCERIN 0.4mg SUBLingual tab SL PRN (23:20)
--- NOTE | 2020-02-04 23:23 | NUR ---
Spoke with Dr White. Pt having an increase in SOB and anxiety and he is on a 1hr neb tx. Adm. NTG 0.4mg SL and also REJI Fleming was notified.
[2020-02-04] MEDS ORDERED: LORazepam 2 mg/ml vial IV STA (23:26)
--- NOTE | 2020-02-04 23:27 | NUR ---
Lonnie, at the bedside. I ordered bipap and also ativan 1 mg IV and TAWANA Cheney was in on the conversation.
--- NOTE | 2020-02-04 23:34 | NUR ---
THE SCANNER IS NOT WORKING IN 14. ALL MEDICATIONS VERIFIED
[2020-02-05] VITALS (11 sets, daily range): BP systolic 113–154; BP diastolic 54–78
[2020-02-05] MEDS ORDERED: magnesium hydroxide 30ml (MOM) UD suspension PO PRN (00:25)
[2020-02-05] MEDS ORDERED: magnesium Cl slow-release 64mg tablet PO PRN (00:25)
[2020-02-05] MEDS ORDERED: HYDROcodone/acetaminophen 5mg/325mg tablet PO PRN (00:25)
[2020-02-05] MEDS ORDERED: magnesium 2GM in 50ml NS 50 ML IV PRN (00:25)
[2020-02-05] MEDS ORDERED: mag hydrox/Alum hydrox/simeth 30ml oral suspension PO PRN (00:25)
[2020-02-05] MEDS ORDERED: potassium CL 10mEq/100ml bag 100 ML IV PRN ×2 (00:25)
[2020-02-05] MEDS ORDERED: ondansetron/PF 4mg/2ml inj IV PRN (00:25)
[2020-02-05] MEDS ORDERED: morphine 2 MG/ML inj. syringe IV PRN (00:25)
[2020-02-05] MEDS ORDERED: potassium Cl 20 mEq SR tablet PO PRN ×2 (00:25)
[2020-02-05] MEDS ORDERED: acetaminophen 325mg tablet PO PRN (00:25)
[2020-02-05] MEDS ORDERED: magnesium 4gm in 100ml NS 100 ML IV PRN (00:25)
[2020-02-05] MEDS ORDERED: ipratropium/albuterol 3ml nebule NEB PRN (01:35)
--- NOTE | 2020-02-05 02:20 | NUR ---
Patient in room ED 14. I have received report from Yessenia GILLIAM and had the opportunity to ask questions and assume patient care.
--- NOTE | 2020-02-05 04:13 | NUR ---
PAGER ID: [phone] MESSAGE: Rolando Diaz 3018B: Patient has hx of DM. Can we start on hyperglycemia protocol? -Guadalupe GILLIAM [phone]
[2020-02-05] MEDS ORDERED: glucagon, human recombinant 1mg kit SUBCUT PRN (04:15)
[2020-02-05] MEDS ORDERED: MESSAGE TO PHARMACY PO ONE (04:15)
[2020-02-05] MEDS ORDERED: dextrose 50%-water 50ml dispensing syringe IV PRN ×2 (04:15)
[2020-02-05] MEDS ORDERED: dextrose ORAL solution 15 GM/59 ML bottle PO PRN ×2 (04:15)
--- NOTE | 2020-02-05 06:09 | NUR ---
Problems reprioritized. Patient report given, questions answered & plan of care reviewed with Gay GILLIAM.
--- NOTE | 2020-02-05 06:10 | NUR ---
Patient in room PCU 3018. I have received report from TAWANA Butcher and had the opportunity to ask questions and assume patient care.
[2020-02-05] MEDS ORDERED: furosemide 20MG tablet PO SCH (08:00)
[2020-02-05] MEDS: K and/or MAG REPLACEMENT MC SCH ×2 (08:00→19:01)
[2020-02-05] MEDS: albuterol 2.5 MG/3 ML nebule NEB SCH ×3 (08:30→20:09)
[2020-02-05] MEDS: budesonide 0.5mg/2ml UD nebule IH SCH ×2 (08:31→20:09)
[2020-02-05] MEDS: gabapentin 300mg capsule PO SCH ×2 (10:49→19:20)
[2020-02-05] MEDS: atorvastatin 20mg tablet PO SCH (10:49)
[2020-02-05] MEDS: clopidogrel 75mg tablet PO SCH (10:49)
[2020-02-05] MEDS: isosorbide mononitrate 30mg tab.SR.24H PO SCH (10:50)
[2020-02-05] MEDS: lisinopril 5mg tablet PO SCH (10:50)
[2020-02-05] MEDS: apixaban 2.5mg tablet PO SCH ×2 (10:50→19:20)
[2020-02-05] MEDS: tamsulosin 0.4mg capsule PO SCH (10:50)
[2020-02-05] MEDS: pantoprazole 40mg Tablet.DR PO SCH (10:50)
[2020-02-05] MEDS: spironolactone 25 MG tablet PO SCH (10:51)
[2020-02-05] MEDS: carVEDilol 12.5mg tablet PO SCH ×2 (10:51→19:20)
[2020-02-05] MEDS: sertraline 50mg tablet PO SCH (10:52)
--- NOTE | 2020-02-05 11:21 | NUR ---
PAGER ID: [phone] MESSAGE: [id number]: Rolando Diaz I have an order for ABGs for pt. Pt gets tachypnic/tachycardic in 110s when on [facility] - Gay [phone]
--- NOTE | 2020-02-05 11:30 | NUR ---
DM consult: Pt with A1c 7.9%, attempted visit with pt at bedside however pt unable to talk at this time. Written DM education and RD contact information left at bedside. Pt encouraged to reach out. Pt has been seen by JOSHUA at past admits. Will remain available. Addendum: 02/05/20 at [address] Amended: Links added.
[2020-02-05] MEDS: insulin Lispro (HumaLOG) vial - multi-dose SQ SCH (19:23)
[2020-02-05] MEDS: insulin glargine (Lantus) pen - multi-dose SQ SCH (21:15)
[2020-02-06 01:47] VITALS: BP 122/55
[2020-02-06] MEDS: albuterol 2.5 MG/3 ML nebule NEB SCH ×4 (02:46→20:09)
[2020-02-06 05:55] LABS: BASOPHILS # (AUTO) 0.1 X10'3 (0-0.2); BASOPHILS % (AUTO) 0.7 % (0-1); EOSINOPHILS # (AUTO) 0.1 X10'3 (0-0.9); EOSINOPHILS % (AUTO) 1.4 % (0-6); HEMOGLOBIN 8.7 g/dl (14.0-17.9); LYMPHOCYTES # (AUTO) 1.4 X10'3 (1.1-4.8); LYMPHOCYTES % (AUTO) 17.8 % (21-51); MEAN CORPUSCULAR HGB CONC 32.3 g/dL (33.0-36.5); MEAN CORPUSCULAR VOLUME 86.7 FL (78-98); MEAN PLATELET VOLUME 9.6 FL (7.4-10.4); MONOCYTES # (AUTO) 0.5 X10'3 (0-0.9); MONOCYTES % (AUTO) 6.9 % (2-12); NEUTROPHILS # (AUTO) 5.6 X10'3 (1.8-7.7); NEUTROPHILS % (AUTO) 73.2 % (42-75); PLATELET COUNT 123 X10'3 (140-440); RED BLOOD COUNT 3.12 X10'6 (4.70-6.10); RED CELL DISTRIBUTION WIDTH 16.7 % (11.5-14.5); WHITE BLOOD COUNT 7.7 X10'3 (4.5-11.0)
[2020-02-06 05:57] LABS: ALANINE AMINOTRANSFERASE 16 U/L (12-78); ALKALINE PHOSPHATASE 93 IU/L (46-116); ANION GAP 10 (8-16); ASPARTATE AMINO TRANSFERASE 11 U/L (10-37); BILIRUBIN,TOTAL 0.3 MG/DL (0.1-1.0); BLOOD UREA NITROGEN 40 MG/DL (7-18); BUN/CREATININE RATIO 18.2 (5.4-32.0); CALCIUM 8.3 MG/DL (8.5-10.1); CHLORIDE 109 MMOL/L (99-107); GLUCOSE 143 MG/DL (70-104); MAGNESIUM 1.7 MG/DL (1.5-2.4); POTASSIUM 4.1 MMOL/L (3.5-5.1); SODIUM 142 MMOL/L (135-145); TOTAL CARBON DIOXIDE 23.4 MMOL/L (24-32); TOTAL PROTEIN 5.9 G/DL (6.4-8.2); eGFR 29 ML/MIN
[2020-02-06 06:00] VITALS: BP 97/47
--- NOTE | 2020-02-06 06:02 | NUR ---
Problems reprioritized. Patient report given, questions answered & plan of care reviewed with TAWANA Rashid.
--- NOTE | 2020-02-06 06:26 | NUR ---
Patient in room [place] [id number]. I have received report from TAWANA Storm and had the opportunity to ask questions and assume patient care. Addendum: 02/06/20 at 0641 by Gay Arellano RN Patient in room [place] [address]. I have received report from TAWANA Chow and had the opportunity to ask questions and assume patient care.
[2020-02-06] MEDS: K and/or MAG REPLACEMENT MC SCH ×2 (07:33→19:05)
[2020-02-06] MEDS: isosorbide mononitrate 30mg tab.SR.24H PO SCH (07:37)
[2020-02-06] MEDS: clopidogrel 75mg tablet PO SCH (07:37)
[2020-02-06] MEDS: sertraline 50mg tablet PO SCH (07:38)
[2020-02-06] MEDS: gabapentin 300mg capsule PO SCH ×2 (07:38→19:03)
[2020-02-06] MEDS: pantoprazole 40mg Tablet.DR PO SCH (07:38)
[2020-02-06] MEDS: apixaban 2.5mg tablet PO SCH ×2 (07:38→19:02)
[2020-02-06] MEDS: lisinopril 5mg tablet PO SCH (07:38)
[2020-02-06] MEDS: carVEDilol 12.5mg tablet PO SCH ×2 (07:38→19:03)
[2020-02-06] MEDS: spironolactone 25 MG tablet PO SCH (07:38)
[2020-02-06] MEDS: tamsulosin 0.4mg capsule PO SCH (07:38)
[2020-02-06] MEDS: atorvastatin 20mg tablet PO SCH (07:38)
[2020-02-06] MEDS: furosemide 40mg/4ml inj IV SCH (07:39)
[2020-02-06] MEDS: budesonide 0.5mg/2ml UD nebule IH SCH ×2 (08:21→20:10)
[2020-02-06] MEDS: insulin Lispro (HumaLOG) vial - multi-dose SQ SCH ×3 (09:52→19:04)
--- NOTE | 2020-02-06 10:42 | NUR ---
New orders from Ayaz for CXR r/t post CT removal leakage
[2020-02-06 11:00] VITALS: BP 116/58
[2020-02-06 15:00] VITALS: BP 109/54
[2020-02-06 18:00] VITALS: BP 131/53
--- NOTE | 2020-02-06 18:06 | NUR ---
Problems reprioritized. Patient report given, questions answered & plan of care reviewed with TAWANA Chow.
[2020-02-06] MEDS: CefTRIAXone/D5W-Rocephin 1gm 50 ML IV SCH (20:51)
[2020-02-06] MEDS: insulin glargine (Lantus) pen - multi-dose SQ SCH (20:54)
[2020-02-06 22:00] VITALS: BP 130/70
[2020-02-07 02:00] VITALS: BP 136/65
[2020-02-07] MEDS: albuterol 2.5 MG/3 ML nebule NEB SCH ×4 (02:26→20:59)
[2020-02-07 05:53] LABS: BASOPHILS # (AUTO) 0.1 X10'3 (0-0.2); BASOPHILS % (AUTO) 1.3 % (0-1); EOSINOPHILS # (AUTO) 0.2 X10'3 (0-0.9); EOSINOPHILS % (AUTO) 2.8 % (0-6); HEMATOCRIT 28.2 % (42.0-52.0); HEMOGLOBIN 9.2 g/dl (14.0-17.9); LYMPHOCYTES # (AUTO) 1.3 X10'3 (1.1-4.8); LYMPHOCYTES % (AUTO) 16.7 % (21-51); MEAN CORPUSCULAR HEMOGLOBIN 28.1 PG (27.0-31.0); MEAN CORPUSCULAR HGB CONC 32.5 g/dL (33.0-36.5); MEAN CORPUSCULAR VOLUME 86.5 FL (78-98); MEAN PLATELET VOLUME 9.6 FL (7.4-10.4); MONOCYTES # (AUTO) 0.7 X10'3 (0-0.9); NEUTROPHILS # (AUTO) 5.6 X10'3 (1.8-7.7); NEUTROPHILS % (AUTO) 70.2 % (42-75); PLATELET COUNT 136 X10'3 (140-440); RED BLOOD COUNT 3.26 X10'6 (4.70-6.10); RED CELL DISTRIBUTION WIDTH 16.7 % (11.5-14.5)
[2020-02-07 06:00] VITALS: BP 137/72
--- NOTE | 2020-02-07 06:13 | NUR ---
Problems reprioritized. Patient report given, questions answered & plan of care reviewed with TAWANA Rashid.
--- NOTE | 2020-02-07 06:15 | NUR ---
Patient in room PCU 3018. I have received report from TAWANA Chow and had the opportunity to ask questions and assume patient care.
[2020-02-07 06:28] LABS: ALANINE AMINOTRANSFERASE 15 U/L (12-78); ALBUMIN 3.2 G/DL (3.4-5.0); ALBUMIN/GLOBULIN RATIO 1.1 (1.1-1.5); ALKALINE PHOSPHATASE 90 IU/L (46-116); ANION GAP 12 (8-16); ASPARTATE AMINO TRANSFERASE 11 U/L (10-37); BILIRUBIN,TOTAL 0.3 MG/DL (0.1-1.0); BLOOD UREA NITROGEN 47 MG/DL (7-18); BUN/CREATININE RATIO 21.1 (5.4-32.0); CALCIUM 8.8 MG/DL (8.5-10.1); CHLORIDE 108 MMOL/L (99-107); CREATININE 2.23 MG/DL (0.60-1.10); GLUCOSE 121 MG/DL (70-104); MAGNESIUM 1.7 MG/DL (1.5-2.4); POTASSIUM 4.4 MMOL/L (3.5-5.1); SODIUM 141 MMOL/L (135-145); TOTAL CARBON DIOXIDE 21.2 MMOL/L (24-32); TOTAL PROTEIN 6.2 G/DL (6.4-8.2); eGFR 29 ML/MIN
[2020-02-07] MEDS: CefTRIAXone/D5W-Rocephin 1gm 50 ML IV SCH (07:49)
[2020-02-07] MEDS: sertraline 50mg tablet PO SCH (07:54)
[2020-02-07] MEDS: tamsulosin 0.4mg capsule PO SCH (07:54)
[2020-02-07] MEDS: furosemide 40mg/4ml inj IV SCH (07:54)
[2020-02-07] MEDS: isosorbide mononitrate 30mg tab.SR.24H PO SCH (07:54)
[2020-02-07] MEDS: lisinopril 5mg tablet PO SCH (07:54)
[2020-02-07] MEDS: spironolactone 25 MG tablet PO SCH (07:54)
[2020-02-07] MEDS: gabapentin 300mg capsule PO SCH ×2 (07:55→21:35)
[2020-02-07] MEDS: pantoprazole 40mg Tablet.DR PO SCH (07:55)
[2020-02-07] MEDS: apixaban 2.5mg tablet PO SCH ×2 (07:55→21:35)
[2020-02-07] MEDS: atorvastatin 20mg tablet PO SCH (07:55)
[2020-02-07] MEDS: carVEDilol 12.5mg tablet PO SCH ×2 (07:55→21:36)
[2020-02-07] MEDS: clopidogrel 75mg tablet PO SCH (07:55)
[2020-02-07] MEDS: insulin Lispro (HumaLOG) vial - multi-dose SQ SCH ×3 (08:06→19:06)
[2020-02-07] MEDS: K and/or MAG REPLACEMENT MC SCH ×2 (08:09→20:00)
[2020-02-07] MEDS: azithromycin/NS 500mg/250ml 250 ML IV SCH (08:26)
[2020-02-07] MEDS: budesonide 0.5mg/2ml UD nebule IH SCH ×2 (08:51→21:01)
[2020-02-07 12:00] VITALS: BP 137/71
--- NOTE | 2020-02-07 13:51 | NUR ---
Per Jef 0.5mg dose IV now and restraints OK PAGER ID: [phone] MESSAGE: [phone]: Rolando pathak: October I have a 0.5mg dose IV of ativan for pt. Pt kicking and puilling lines as well as an order for restraints? Kindly advise -gay [phone] Addendum: 02/07/20 at 1424 by Gay Arellano RN VOID incorrect pt
[2020-02-07] MEDS ORDERED: LORazepam 2 mg/ml vial IV ONE ×2 (13:55→18:55)
[2020-02-07 15:00] VITALS: BP 132/59
[2020-02-07 18:00] VITALS: BP 113/68
--- NOTE | 2020-02-07 18:05 | NUR ---
Problems reprioritized. Patient report given, questions answered & plan of care reviewed with Mitch RN.
--- NOTE | 2020-02-07 18:30 | NUR ---
Patient in room PCU 3018. I have received report from Gay GILLIAM and had the opportunity to ask questions and assume patient care.
[2020-02-07] MEDS: insulin glargine (Lantus) pen - multi-dose SQ SCH (21:34)
[2020-02-07] MEDS: lactobacillus rhamnosus 10,000 MMU CELLS/CAPSULE PO SCH (21:35)
[2020-02-07 22:00] VITALS: BP 136/61
[2020-02-08] VITALS (8 sets, daily range): BP systolic 104–140; BP diastolic 45–67
[2020-02-08] MEDS: albuterol 2.5 MG/3 ML nebule NEB SCH (02:55)
[2020-02-08 05:52] LABS: BASOPHILS # (AUTO) 0.1 X10'3 (0-0.2); EOSINOPHILS # (AUTO) 0.3 X10'3 (0-0.9); EOSINOPHILS % (AUTO) 4.8 % (0-6); HEMATOCRIT 26.8 % (42.0-52.0); HEMOGLOBIN 8.8 g/dl (14.0-17.9); LYMPHOCYTES # (AUTO) 1.1 X10'3 (1.1-4.8); LYMPHOCYTES % (AUTO) 18.8 % (21-51); MEAN CORPUSCULAR HEMOGLOBIN 28.2 PG (27.0-31.0); MEAN CORPUSCULAR HGB CONC 32.8 g/dL (33.0-36.5); MEAN CORPUSCULAR VOLUME 86.1 FL (78-98); MEAN PLATELET VOLUME 9.5 FL (7.4-10.4); MONOCYTES # (AUTO) 0.6 X10'3 (0-0.9); MONOCYTES % (AUTO) 10.6 % (2-12); NEUTROPHILS # (AUTO) 3.9 X10'3 (1.8-7.7); NEUTROPHILS % (AUTO) 64.8 % (42-75); PLATELET COUNT 124 X10'3 (140-440); RED BLOOD COUNT 3.12 X10'6 (4.70-6.10); RED CELL DISTRIBUTION WIDTH 16.6 % (11.5-14.5)
[2020-02-08 06:27] LABS: ALANINE AMINOTRANSFERASE 13 U/L (12-78); ALBUMIN/GLOBULIN RATIO 1.1 (1.1-1.5); ALKALINE PHOSPHATASE 85 IU/L (46-116); ANION GAP 11 (8-16); ASPARTATE AMINO TRANSFERASE 10 U/L (10-37); BILIRUBIN,TOTAL 0.4 MG/DL (0.1-1.0); BLOOD UREA NITROGEN 45 MG/DL (7-18); BUN/CREATININE RATIO 23.4 (5.4-32.0); CALCIUM 8.5 MG/DL (8.5-10.1); CHLORIDE 108 MMOL/L (99-107); CREATININE 1.92 MG/DL (0.60-1.10); GLUCOSE 89 MG/DL (70-104); MAGNESIUM 1.7 MG/DL (1.5-2.4); POTASSIUM 3.7 MMOL/L (3.5-5.1); SODIUM 142 MMOL/L (135-145); TOTAL CARBON DIOXIDE 23.5 MMOL/L (24-32); TOTAL PROTEIN 5.8 G/DL (6.4-8.2); eGFR 34 ML/MIN
--- NOTE | 2020-02-08 06:30 | NUR ---
Patient in room PCU 3018. I have received report from TAWANA BUTLER and had the opportunity to ask questions and assume patient care.
--- NOTE | 2020-02-08 06:48 | NUR ---
Problems reprioritized. Patient report given, questions answered & plan of care reviewed with Danilo RN.
[2020-02-08] MEDS: CefTRIAXone/D5W-Rocephin 1gm 50 ML IV SCH (07:34)
[2020-02-08] MEDS: furosemide 40mg/4ml inj IV SCH (07:34)
[2020-02-08] MEDS: spironolactone 25 MG tablet PO SCH (07:35)
[2020-02-08] MEDS: carVEDilol 12.5mg tablet PO SCH ×2 (07:35→21:18)
[2020-02-08] MEDS: isosorbide mononitrate 30mg tab.SR.24H PO SCH (07:37)
[2020-02-08] MEDS: apixaban 2.5mg tablet PO SCH ×2 (07:37→21:18)
[2020-02-08] MEDS: tamsulosin 0.4mg capsule PO SCH (07:37)
[2020-02-08] MEDS: lactobacillus rhamnosus 10,000 MMU CELLS/CAPSULE PO SCH ×2 (07:37→21:18)
[2020-02-08] MEDS: gabapentin 300mg capsule PO SCH ×2 (07:38→21:18)
[2020-02-08] MEDS: atorvastatin 20mg tablet PO SCH (07:38)
[2020-02-08] MEDS: clopidogrel 75mg tablet PO SCH (07:39)
[2020-02-08] MEDS: lisinopril 5mg tablet PO SCH (07:39)
[2020-02-08] MEDS: pantoprazole 40mg Tablet.DR PO SCH (07:39)
[2020-02-08] MEDS: sertraline 50mg tablet PO SCH (07:40)
[2020-02-08] MEDS: K and/or MAG REPLACEMENT MC SCH ×2 (08:00→20:00)
--- NOTE | 2020-02-08 08:56 | NUR ---
PAged rt: NEED HELP WITH BIPAP ALARM [id number] PLEASE. MARLEE GUTIERREZ [phone].
[2020-02-08] MEDS: budesonide 0.5mg/2ml UD nebule IH SCH ×2 (09:02→19:05)
[2020-02-08] MEDS: methylPREDNISolone sod succ/PF 40mg inj. IV SCH ×2 (09:07→21:17)
[2020-02-08] MEDS: insulin Lispro (HumaLOG) vial - multi-dose SQ SCH ×3 (09:12→18:46)
[2020-02-08] MEDS: azithromycin/NS 500mg/250ml 250 ML IV SCH (09:21)
[2020-02-08] MEDS: ipratropium/albuterol 3ml nebule NEB SCH ×4 (11:36→22:41)
--- NOTE | 2020-02-08 14:30 | NUR ---
Problems reprioritized. Patient report given, questions answered & plan of care reviewed with TAWANA BOTELLO.
--- NOTE | 2020-02-08 14:41 | NUR ---
Patient in room PCU 3018. I have received report from Danilo GILLIAM and had the opportunity to ask questions and assume patient care.
--- NOTE | 2020-02-08 14:47 | NUR ---
Received telephone order for ativan 1mg PO Q6 for anxiety from Dr. Fuchs.
--- NOTE | 2020-02-08 18:34 | NUR ---
Problems reprioritized. Patient report given, questions answered & plan of care reviewed with Max GILLIAM and Milind GILLIAM.
--- NOTE | 2020-02-08 18:57 | NUR ---
Patient in room PCU 3018. I have received report from Katy GILLIAM and had the opportunity to ask questions and assume patient care. Patient awoke on report and in no apparent distress, Bipap on.
--- NOTE | 2020-02-08 19:21 | NUR ---
Patient in room PCU 3018b. I have received report from ATWANA BOTELLO and had the opportunity to ask questions and assume patient care. PATIENT AWAKE FOR BEDSIDE REPORT. ON BIPAP AT 25% FiO2 AND IS SALINE LOCKED PER PROVIDER ORDER. PATIENT OFFERS NO COMPLAINTS AT THIS TIME. WILL CONTINUE TO MONITOR CLOSELY.
[2020-02-08] MEDS: insulin glargine (Lantus) pen - multi-dose SQ SCH (21:29)
[2020-02-09] VITALS (8 sets, daily range): BP systolic 104–156; BP diastolic 61–87
[2020-02-09] MEDS: ipratropium/albuterol 3ml nebule NEB SCH ×6 (03:17→22:49)
[2020-02-09 06:25] LABS: BASOPHILS % (AUTO) 0.1 % (0-1); EOSINOPHILS % (AUTO) 0 % (0-6); HEMATOCRIT 28.5 % (42.0-52.0); HEMOGLOBIN 9.4 g/dl (14.0-17.9); LYMPHOCYTES # (AUTO) 0.5 X10'3 (1.1-4.8); LYMPHOCYTES % (AUTO) 7.6 % (21-51); MEAN CORPUSCULAR HEMOGLOBIN 28.2 PG (27.0-31.0); MEAN CORPUSCULAR VOLUME 85.7 FL (78-98); MEAN PLATELET VOLUME 9.8 FL (7.4-10.4); MONOCYTES # (AUTO) 0.1 X10'3 (0-0.9); MONOCYTES % (AUTO) 1.8 % (2-12); NEUTROPHILS # (AUTO) 5.4 X10'3 (1.8-7.7); NEUTROPHILS % (AUTO) 90.5 % (42-75); PLATELET COUNT 124 X10'3 (140-440); RED BLOOD COUNT 3.33 X10'6 (4.70-6.10); RED CELL DISTRIBUTION WIDTH 16.3 % (11.5-14.5); WHITE BLOOD COUNT 5.9 X10'3 (4.5-11.0)
[2020-02-09 06:42] LABS: ALANINE AMINOTRANSFERASE 16 U/L (12-78); ALBUMIN 3.3 G/DL (3.4-5.0); ALKALINE PHOSPHATASE 95 IU/L (46-116); ANION GAP 10 (8-16); ASPARTATE AMINO TRANSFERASE 13 U/L (10-37); BILIRUBIN,TOTAL 0.3 MG/DL (0.1-1.0); BLOOD UREA NITROGEN 43 MG/DL (7-18); BUN/CREATININE RATIO 22.1 (5.4-32.0); CALCIUM 8.8 MG/DL (8.5-10.1); CHLORIDE 106 MMOL/L (99-107); CREATININE 1.95 MG/DL (0.60-1.10); GLUCOSE 204 MG/DL (70-104); MAGNESIUM 1.7 MG/DL (1.5-2.4); POTASSIUM 4.4 MMOL/L (3.5-5.1); SODIUM 139 MMOL/L (135-145); TOTAL CARBON DIOXIDE 23.1 MMOL/L (24-32); TOTAL PROTEIN 6.5 G/DL (6.4-8.2); eGFR 34 ML/MIN
[2020-02-09] MEDS: budesonide 0.5mg/2ml UD nebule IH SCH ×2 (06:54→19:36)
--- NOTE | 2020-02-09 07:00 | NUR ---
Patient in room PCU 3018. I have received report from TAWANA GALLEGOS and had the opportunity to ask questions and assume patient care.
--- NOTE | 2020-02-09 07:11 | NUR ---
Problems reprioritized. Patient report given, questions answered & plan of care reviewed with TAWANA WHALEN.
[2020-02-09] MEDS: K and/or MAG REPLACEMENT MC SCH ×2 (08:00→20:00)
[2020-02-09] MEDS: CefTRIAXone/D5W-Rocephin 1gm 50 ML IV SCH (08:40)
[2020-02-09] MEDS: methylPREDNISolone sod succ/PF 40mg inj. IV SCH (08:40)
[2020-02-09] MEDS: lactobacillus rhamnosus 10,000 MMU CELLS/CAPSULE PO SCH ×2 (08:41→20:56)
[2020-02-09] MEDS: spironolactone 25 MG tablet PO SCH (08:41)
[2020-02-09] MEDS: carVEDilol 12.5mg tablet PO SCH ×2 (08:41→20:57)
[2020-02-09] MEDS: apixaban 2.5mg tablet PO SCH ×2 (08:42→20:56)
[2020-02-09] MEDS: tamsulosin 0.4mg capsule PO SCH (08:42)
[2020-02-09] MEDS: atorvastatin 20mg tablet PO SCH (08:43)
[2020-02-09] MEDS: isosorbide mononitrate 30mg tab.SR.24H PO SCH (08:43)
[2020-02-09] MEDS: gabapentin 300mg capsule PO SCH ×2 (08:44→20:56)
[2020-02-09] MEDS: pantoprazole 40mg Tablet.DR PO SCH (08:44)
[2020-02-09] MEDS: clopidogrel 75mg tablet PO SCH (08:44)
[2020-02-09] MEDS: lisinopril 5mg tablet PO SCH (08:45)
[2020-02-09] MEDS: azithromycin 250mg tablet PO SCH (08:45)
[2020-02-09] MEDS: sertraline 50mg tablet PO SCH (08:46)
[2020-02-09] MEDS: insulin Lispro (HumaLOG) vial - multi-dose SQ SCH ×3 (09:00→18:47)
--- NOTE | 2020-02-09 12:59 | NUR ---
PAGER ID: [phone] MESSAGE: DR. PATHAK, 9553B/TRANG, IS UPSET. SAID HIS DOCTOR CAME IN AND LISTENED TO HIS CHEST AND LEFT THE ROOM WITHOUT SAYING ANYTHING. HE IS THREATENING TO LEAVE AMA. MARLEE [phone] TY
--- NOTE | 2020-02-09 13:22 | NUR ---
PAGER ID: [phone] MESSAGE: DR. PATHAK, 0330B/TRANG, PT EVAL AND TREAT ORDER PLEASE? MARLEE 1931, TY
[2020-02-09] MEDS: LORazepam 1 MG tablet PO PRN (15:07)
--- NOTE | 2020-02-09 18:30 | NUR ---
Problems reprioritized. Patient report given, questions answered & plan of care reviewed with TAWANA GALLEGOS.
--- NOTE | 2020-02-09 18:35 | NUR ---
Patient in room PCU 3018. I have received report from Danilo GILLIAM and had the opportunity to ask questions and assume patient care. Patient awake on report and in no distress. On nasal cannula 1 liter and on mobile 68 telemetry.
[2020-02-09] MEDS: insulin glargine (Lantus) pen - multi-dose SQ SCH (20:59)
[2020-02-10 02:00] VITALS: BP 133/64
[2020-02-10] MEDS: ipratropium/albuterol 3ml nebule NEB SCH ×6 (02:45→23:01)
[2020-02-10 06:00] VITALS: BP 130/66
[2020-02-10 06:07] LABS: BASOPHILS % (AUTO) 0.3 % (0-1); EOSINOPHILS % (AUTO) 0.3 % (0-6); HEMATOCRIT 27.7 % (42.0-52.0); HEMOGLOBIN 9.1 g/dl (14.0-17.9); LYMPHOCYTES % (AUTO) 11.7 % (21-51); MEAN CORPUSCULAR HEMOGLOBIN 28.5 PG (27.0-31.0); MEAN CORPUSCULAR VOLUME 86.6 FL (78-98); MEAN PLATELET VOLUME 9.8 FL (7.4-10.4); MONOCYTES # (AUTO) 0.8 X10'3 (0-0.9); MONOCYTES % (AUTO) 8.9 % (2-12); NEUTROPHILS # (AUTO) 6.9 X10'3 (1.8-7.7); NEUTROPHILS % (AUTO) 78.8 % (42-75); PLATELET COUNT 137 X10'3 (140-440); RED CELL DISTRIBUTION WIDTH 17.1 % (11.5-14.5); WHITE BLOOD COUNT 8.8 X10'3 (4.5-11.0)
[2020-02-10 06:15] LABS: ALANINE AMINOTRANSFERASE 17 U/L (12-78); ALBUMIN 3.2 G/DL (3.4-5.0); ALBUMIN/GLOBULIN RATIO 1.1 (1.1-1.5); ALKALINE PHOSPHATASE 84 IU/L (46-116); ANION GAP 8 (8-16); ASPARTATE AMINO TRANSFERASE 10 U/L (10-37); BILIRUBIN,TOTAL 0.3 MG/DL (0.1-1.0); BLOOD UREA NITROGEN 47 MG/DL (7-18); BUN/CREATININE RATIO 22.2 (5.4-32.0); CALCIUM 8.9 MG/DL (8.5-10.1); CHLORIDE 107 MMOL/L (99-107); CREATININE 2.12 MG/DL (0.60-1.10); GLUCOSE 154 MG/DL (70-104); MAGNESIUM 1.8 MG/DL (1.5-2.4); POTASSIUM 4.1 MMOL/L (3.5-5.1); SODIUM 140 MMOL/L (135-145); TOTAL CARBON DIOXIDE 25.1 MMOL/L (24-32); TOTAL PROTEIN 6.1 G/DL (6.4-8.2); eGFR 30 ML/MIN
--- NOTE | 2020-02-10 06:34 | NUR ---
Patient in room PCU 3018. I have received report from TAWANA GALLEGOS and had the opportunity to ask questions and assume patient care.
--- NOTE | 2020-02-10 06:35 | NUR ---
[facility] documentation: I have reviewed and agree with all interventions, assessments performed and documented by TAWANA Mc.
--- NOTE | 2020-02-10 06:35 | NUR ---
Problems reprioritized. Patient report given, questions answered & plan of care reviewed with TAWANA Carrasco.
[2020-02-10] MEDS: budesonide 0.5mg/2ml UD nebule IH SCH ×2 (07:30→19:32)
[2020-02-10] MEDS: K and/or MAG REPLACEMENT MC SCH ×2 (08:00→20:00)
[2020-02-10] MEDS: CefTRIAXone/D5W-Rocephin 1gm 50 ML IV SCH (08:15)
[2020-02-10] MEDS: spironolactone 25 MG tablet PO SCH (08:16)
[2020-02-10] MEDS: lactobacillus rhamnosus 10,000 MMU CELLS/CAPSULE PO SCH ×2 (08:17→19:03)
[2020-02-10] MEDS: atorvastatin 20mg tablet PO SCH (08:17)
[2020-02-10] MEDS: tamsulosin 0.4mg capsule PO SCH (08:17)
[2020-02-10] MEDS: isosorbide mononitrate 30mg tab.SR.24H PO SCH (08:17)
[2020-02-10] MEDS: apixaban 2.5mg tablet PO SCH ×2 (08:17→19:03)
[2020-02-10] MEDS: carVEDilol 12.5mg tablet PO SCH ×2 (08:17→19:04)
[2020-02-10] MEDS: gabapentin 300mg capsule PO SCH ×2 (08:18→19:03)
[2020-02-10] MEDS: pantoprazole 40mg Tablet.DR PO SCH (08:18)
[2020-02-10] MEDS: clopidogrel 75mg tablet PO SCH (08:18)
[2020-02-10] MEDS: predniSONE 20 mg tablet PO SCH (08:18)
[2020-02-10] MEDS: lisinopril 5mg tablet PO SCH (08:19)
[2020-02-10] MEDS: azithromycin 250mg tablet PO SCH (08:19)
[2020-02-10] MEDS: sertraline 50mg tablet PO SCH (08:20)
[2020-02-10] MEDS ORDERED: FURO20TA4 PO (10:19)
[2020-02-10] MEDS ORDERED: PRED10TA23 PO (10:20)
[2020-02-10] MEDS ORDERED: IPRA3AMP9 IH (10:20)
--- NOTE | 2020-02-10 10:53 | NUR ---
RT AT PATIENTS ROOM, PT CURRENTLY PREPARING TO GO ON A WALK WITH PT. RT WILL RETURN AT A LATER TIME FOR [place]. Addendum: 02/10/20 at 1057 by Nadine Red RT Amended: Links added.
[2020-02-10 11:00] VITALS: BP 145/76
--- NOTE | 2020-02-10 11:51 | NUR ---
Initial: Pt admit w/ acute respiratory failure COPD exacerbation, acute on chronic CHF EF 45-50%, probable aspiration PNA, and SAUL on CKD per MD. PO improving to 75-100% avg carb controlled meals meeting needs. No DRAPERY ESTIMATOR BSS this admit; RD recommended DRAPERY ESTIMATOR BSS given DX and MD notified. LBM 02/07. Will continue to monitor for texture modification pending DRAPERY ESTIMATOR recs. Rec: 1. continue carb controlled diet 2. texture recs pending DRAPERY ESTIMATOR BSS; probable aspiration PNA per MD 3. routine bowel care 4. wt per rx Addendum: 02/10/20 at [address] Amended: Links added.
[2020-02-10] MEDS: insulin Lispro (HumaLOG) vial - multi-dose SQ SCH ×2 (13:34→18:51)
[2020-02-10 15:00] VITALS: BP 118/61
[2020-02-10 18:00] VITALS: BP 138/73
--- NOTE | 2020-02-10 18:40 | NUR ---
Patient in room PCU 3018. I have received report from Danilo GILLIAM and had the opportunity to ask questions and assume patient care. Patient awake for bedside report and in no apparent distress, on 1 liter nasal cannula.
--- NOTE | 2020-02-10 18:42 | NUR ---
Problems reprioritized. Patient report given, questions answered & plan of care reviewed with TAWANA GALLEGOS.
[2020-02-10] MEDS: LORazepam 1 MG tablet PO PRN (19:03)
[2020-02-10] MEDS: insulin glargine (Lantus) pen - multi-dose SQ SCH (21:07)
[2020-02-10 22:00] VITALS: BP 119/62
[2020-02-11 02:00] VITALS: BP 143/65
[2020-02-11] MEDS: ipratropium/albuterol 3ml nebule NEB SCH ×3 (03:00→11:39)
[2020-02-11 05:45] LABS: BASOPHILS % (AUTO) 0.2 % (0-1); EOSINOPHILS % (AUTO) 0.2 % (0-6); HEMOGLOBIN 9.5 g/dl (14.0-17.9); LYMPHOCYTES # (AUTO) 0.9 X10'3 (1.1-4.8); LYMPHOCYTES % (AUTO) 11.5 % (21-51); MEAN CORPUSCULAR HEMOGLOBIN 28.2 PG (27.0-31.0); MEAN CORPUSCULAR HGB CONC 32.7 g/dL (33.0-36.5); MEAN CORPUSCULAR VOLUME 86.2 FL (78-98); MEAN PLATELET VOLUME 9.6 FL (7.4-10.4); MONOCYTES # (AUTO) 0.6 X10'3 (0-0.9); MONOCYTES % (AUTO) 7.7 % (2-12); NEUTROPHILS # (AUTO) 6.3 X10'3 (1.8-7.7); NEUTROPHILS % (AUTO) 80.4 % (42-75); PLATELET COUNT 125 X10'3 (140-440); RED BLOOD COUNT 3.37 X10'6 (4.70-6.10); RED CELL DISTRIBUTION WIDTH 16.6 % (11.5-14.5); WHITE BLOOD COUNT 7.9 X10'3 (4.5-11.0)
[2020-02-11 06:02] LABS: ALANINE AMINOTRANSFERASE 15 U/L (12-78); ALBUMIN 3.3 G/DL (3.4-5.0); ALBUMIN/GLOBULIN RATIO 1.1 (1.1-1.5); ALKALINE PHOSPHATASE 86 IU/L (46-116); ANION GAP 10 (8-16); ASPARTATE AMINO TRANSFERASE 14 U/L (10-37); BILIRUBIN,TOTAL 0.3 MG/DL (0.1-1.0); BLOOD UREA NITROGEN 51 MG/DL (7-18); CALCIUM 8.6 MG/DL (8.5-10.1); CHLORIDE 108 MMOL/L (99-107); CREATININE 1.82 MG/DL (0.60-1.10); GLUCOSE 138 MG/DL (70-104); MAGNESIUM 1.9 MG/DL (1.5-2.4); POTASSIUM 4.4 MMOL/L (3.5-5.1); SODIUM 139 MMOL/L (135-145); TOTAL CARBON DIOXIDE 21.3 MMOL/L (24-32); TOTAL PROTEIN 6.3 G/DL (6.4-8.2); eGFR 36 ML/MIN
--- NOTE | 2020-02-11 06:14 | NUR ---
Patient in room PCU 3018. I have received report from Terri GILLIAM and had the opportunity to ask questions and assume patient care.
--- NOTE | 2020-02-11 06:40 | NUR ---
Problems reprioritized. Patient report given, questions answered & plan of care reviewed with Darrick GILLIAM.
[2020-02-11 07:00] VITALS: BP 146/76
[2020-02-11] MEDS: K and/or MAG REPLACEMENT MC SCH (08:00)
[2020-02-11] MEDS: CefTRIAXone/D5W-Rocephin 1gm 50 ML IV SCH (08:29)
[2020-02-11] MEDS: carVEDilol 12.5mg tablet PO SCH (08:29)
[2020-02-11] MEDS: lisinopril 5mg tablet PO SCH (08:30)
[2020-02-11] MEDS: sertraline 50mg tablet PO SCH (08:30)
[2020-02-11] MEDS: pantoprazole 40mg Tablet.DR PO SCH (08:30)
[2020-02-11] MEDS: tamsulosin 0.4mg capsule PO SCH (08:30)
[2020-02-11] MEDS: gabapentin 300mg capsule PO SCH (08:30)
[2020-02-11] MEDS: atorvastatin 20mg tablet PO SCH (08:30)
[2020-02-11] MEDS: azithromycin 250mg tablet PO SCH (08:30)
[2020-02-11] MEDS: isosorbide mononitrate 30mg tab.SR.24H PO SCH (08:30)
[2020-02-11] MEDS: lactobacillus rhamnosus 10,000 MMU CELLS/CAPSULE PO SCH (08:30)
[2020-02-11] MEDS: predniSONE 20 mg tablet PO SCH (08:31)
[2020-02-11] MEDS: clopidogrel 75mg tablet PO SCH (08:31)
[2020-02-11] MEDS: spironolactone 25 MG tablet PO SCH (08:31)
[2020-02-11] MEDS: apixaban 2.5mg tablet PO SCH (08:31)
[2020-02-11] MEDS: insulin Lispro (HumaLOG) vial - multi-dose SQ SCH ×2 (08:47→13:05)
[2020-02-11 11:00] VITALS: BP 171/88
--- NOTE | 2020-02-11 11:31 | NUR ---
Patient has audible wheezes. Dr. Fuchs wanted a nursing note. Patient wants to discharge.
[2020-02-11] MEDS: budesonide 0.5mg/2ml UD nebule IH SCH (11:39)
--- NOTE | 2020-02-11 13:39 | NUR ---
Paged Dr. Fuchs. Rolando Diaz. [phone]. Patient wants to leave [place]. Darrick [phone]
--- NOTE | 2020-02-11 14:11 | NUR ---
Patient left AMA, paperwork signed, occurrence report filed, piv and tele DC, patient belongings wallet with all money , marie, sunglasses, hat, shirt, pants, shoes. Patient wheeled to lobby where picked up in personal vehicle.
== END 2020-02-11 14:10 | disposition left against medical advice (07) | DRG 291 ==
LOC: ER 19:07 → ED HOLD 02-05 00:22 → PCU 3S 02-05 02:50
PROVIDERS: ADMIT Family Medicine; ATTEND Internal Medicine
DX: I13.0 Hypertensive heart and chronic kidney disease with heart failure and stage 1 through stage 4 chronic kidney disease, or unspecified chronic kidney disease (principal); I50.23 Acute on chronic systolic (congestive) heart failure; J96.00 Acute respiratory failure, unspecified whether with hypoxia or hypercapnia; J18.9 Pneumonia, unspecified organism; J44.1 Chronic obstructive pulmonary disease with (acute) exacerbation; E87.2 Acidosis; I50.9 Heart failure, unspecified; N18.9 Chronic kidney disease, unspecified
CPT/HCPCS: 36415; 36600; 71045; 80053; 82803; 82948; 83605; 83735; 83880; 84484; 85018; 85025; 87040; 87081; 92508; 92616; 93005; 94640; 94660; 94760; 97110; 97116; 97162; 97530; 99285; G0378; J0456; J0696; J1815; J1940; J2060; J2920; J2930; J7512; J7626

== ENCOUNTER 2020-03-23 12:31 | Emergency (ER) | payer MEDICARE, MEDICAID ==
[~2020-03-23] VITALS: Ht 185.4 cm; Wt 86.0 kg
[~2020-03-23 12:31] MED LIST changes: +ASPI-1071 PO; +BUDE10.2 INH; -BUDE10.22 INH; -FURO20TA4 PO; +FURO40TA4 PO; -GABA300C PO; +GABA600T13 PO; -IPRA3AMP9 NEB; -PANT40TA4 PO; +PANT40TA54 PO; +PRED20TA PO
[2020-03-23] MEDS ORDERED: morphine 4 MG/ML inj SYRINge IV PRN (13:05)
[2020-03-23] MEDS ORDERED: normal saline 1000ML IV soln IVB ONE (13:05)
[2020-03-23] MEDS ORDERED: ondansetron/PF 4mg/2ml inj IV ONE (13:05)
--- NOTE | 2020-03-23 13:13 | NUR ---
pt to CT
[2020-03-23 13:48] LABS: BASOPHILS % (AUTO) 0.4 % (0-1); EOSINOPHILS # (AUTO) 0.1 X10'3 (0-0.9); EOSINOPHILS % (AUTO) 1.4 % (0-6); HEMATOCRIT 31.2 % (42.0-52.0); HEMOGLOBIN 10.2 g/dl (14.0-17.9); LYMPHOCYTES # (AUTO) 0.6 X10'3 (1.1-4.8); LYMPHOCYTES % (AUTO) 7.2 % (21-51); MEAN CORPUSCULAR HEMOGLOBIN 26.9 PG (27.0-31.0); MEAN CORPUSCULAR HGB CONC 32.6 g/dL (33.0-36.5); MEAN CORPUSCULAR VOLUME 82.7 FL (78-98); MEAN PLATELET VOLUME 9.1 FL (7.4-10.4); MONOCYTES # (AUTO) 0.6 X10'3 (0-0.9); MONOCYTES % (AUTO) 6.5 % (2-12); NEUTROPHILS # (AUTO) 7.5 X10'3 (1.8-7.7); NEUTROPHILS % (AUTO) 84.5 % (42-75); PLATELET COUNT 117 X10'3 (140-440); RED BLOOD COUNT 3.78 X10'6 (4.70-6.10); WHITE BLOOD COUNT 8.9 X10'3 (4.5-11.0)
[2020-03-23 14:08] LABS: ALANINE AMINOTRANSFERASE 33 U/L (12-78); ALBUMIN 2.8 G/DL (3.4-5.0); ALKALINE PHOSPHATASE 78 IU/L (46-116); ANION GAP 7 (8-16); ASPARTATE AMINO TRANSFERASE 12 U/L (10-37); BILIRUBIN,TOTAL 0.5 MG/DL (0.1-1.0); BLOOD UREA NITROGEN 33 MG/DL (7-18); CALCIUM 8.3 MG/DL (8.5-10.1); CHLORIDE 106 MMOL/L (99-107); CREATININE 1.57 MG/DL (0.60-1.10); GLUCOSE 205 MG/DL (70-104); LIPASE 59 U/L (73-393); POTASSIUM 4.2 MMOL/L (3.5-5.1); SODIUM 140 MMOL/L (135-145); TOTAL PROTEIN 5.7 G/DL (6.4-8.2); eGFR 43 ML/MIN
[2020-03-23 14:14] LABS: ETHANOL < 0.010 GM/DL (0.0-0.010)
--- NOTE | 2020-03-23 14:15 | NUR ---
pt is resting quietly on gurney, gave him a warm blanket and pt said rt flank pain is down to 5/10
--- NOTE | 2020-03-23 14:54 | NUR ---
PATIENT AMBULATED AROUND UNIT WITH STANDBY ASSIST. PATIENT TOLERATED FAIRLY WELL AND STATES HE USUALLY USES A WALKER OR SCOOTER AT HOME. PROVIDER NOTIFIED OF GAIT TEST ABILITY.
[2020-03-23] MEDS ORDERED: ONDA4TAB6 PO (15:01)
[2020-03-23 15:25] VITALS: BP 149/72
[2020-03-23 15:33] LABS: CLARITY,URINE CLEAR (Clear); COLOR,URINE YELLOW (Yellow); GLUCOSE, URINE NEGATIVE (Neg); KETONES,URINE NEGATIVE (Neg); LEUKOCYTE ESTERASE ,URINE NEGATIVE (Neg); NITRITES, URINE NEGATIVE (Neg); OCCULT BLOOD,URINE TRACE-LYSED (Neg); PH,URINE 5.5 (4.8-8.0); PROTEIN,URINE 30 mg/dl (Neg); UROBILINOGEN,URINE 0.2 E.U/dL (0.2-1.0)
[2020-03-23 15:34] LABS: UA COLLECTION TYPE URINAL
[2020-03-23 15:38] LABS: URINE AMPHETAMINE SCREEN NEGATIVE (Neg); URINE BARBITUATE SCREEN NEGATIVE (Neg); URINE BENZODIAZEPINES SCREEN NEGATIVE (Neg); URINE CANNABINOID SCREEN NEGATIVE (Neg); URINE COCAINE SCREEN NEGATIVE (Neg); URINE METHADONE SCREEN NEGATIVE (Neg); URINE OPIATE SCREEN POSITIVE (Neg); URINE PHENCYCLIDINE SCREEN NEGATIVE (Neg)
[2020-03-23 15:39] LABS: BACTERIA,URINE NONE SEEN /HPF (Neg); MUCUS STRANDS NONE SEEN /LPF (Neg); RBC,URINE 0-2 /HPF (0-2); SQUAMOUS EPITHELIAL CELL,UR FEW /LPF (FEW); TRANSITIONAL EPI CELLS,URINE FEW /HPF; WBC,URINE 0-4 /HPF (0-4)
== END 2020-03-23 15:28 | disposition home or self-care (01) ==
LOC: EDBD 12:32 → MERGE 12:32 → ER 12:32
DX: S00.03XA Contusion of scalp, initial encounter (principal); R11.2 Nausea with vomiting, unspecified; R10.31 Right lower quadrant pain; R10.11 Right upper quadrant pain; F17.200 Nicotine dependence, unspecified, uncomplicated; Z91.018 Allergy to other foods; Z88.8 Allergy status to other drugs, medicaments and biological substances; Z79.4 Long term (current) use of insulin; Z79.82 Long term (current) use of aspirin; Z79.899 Other long term (current) drug therapy; X58.XXXA Exposure to other specified factors, initial encounter; Y93.89 Activity, other specified; Y92.89 Other specified places as the place of occurrence of the external cause; Y99.8 Other external cause status
CPT/HCPCS: 36415; 70450; 71045; 74176; 80053; 80305; 80320; 81001; 82140; 83690; 85025; 93005; 96361; 96374; 96375; 99285; J2270; J2405; J7030

== ENCOUNTER 2020-03-26 16:25 | Emergency (ER) | payer MEDICARE, MEDICAID ==
[~2020-03-26] VITALS: Ht 185.4 cm; Wt 86.4 kg
[~2020-03-26 16:25] MED LIST changes: +ONDA4TAB6 PO
[2020-03-26] MEDS ORDERED: methylPREDNISolone sod succ 125mg/2ml vial IV ONE (16:55)
[2020-03-26] MEDS ORDERED: ipratropium/albuterol 3ml nebule NEB ONE (16:55)
[2020-03-26] MEDS ORDERED: SITA50TA7 PO (17:39)
[2020-03-26] MEDS ORDERED: ONDA-103 PO (17:39)
[2020-03-26 17:41] LABS: BASOPHILS # (AUTO) 0.1 X10'3 (0-0.2); BASOPHILS % (AUTO) 0.9 % (0-1); EOSINOPHILS # (AUTO) 0.1 X10'3 (0-0.9); EOSINOPHILS % (AUTO) 1.9 % (0-6); HEMATOCRIT 30.2 % (42.0-52.0); HEMOGLOBIN 9.8 g/dl (14.0-17.9); LYMPHOCYTES # (AUTO) 0.8 X10'3 (1.1-4.8); MEAN CORPUSCULAR HEMOGLOBIN 26.8 PG (27.0-31.0); MEAN CORPUSCULAR HGB CONC 32.3 g/dL (33.0-36.5); MEAN CORPUSCULAR VOLUME 82.9 FL (78-98); MEAN PLATELET VOLUME 8.5 FL (7.4-10.4); MONOCYTES # (AUTO) 0.9 X10'3 (0-0.9); MONOCYTES % (AUTO) 11.4 % (2-12); NEUTROPHILS # (AUTO) 5.7 X10'3 (1.8-7.7); NEUTROPHILS % (AUTO) 74.8 % (42-75); PLATELET COUNT 104 X10'3 (140-440); RED BLOOD COUNT 3.65 X10'6 (4.70-6.10); RED CELL DISTRIBUTION WIDTH 18.3 % (11.5-14.5); WHITE BLOOD COUNT 7.6 X10'3 (4.5-11.0)
[2020-03-26] MEDS ORDERED: ASPI-1475 PO (17:41)
[2020-03-26] MEDS ORDERED: FURO-149 PO (17:41)
[2020-03-26 18:05] LABS: ALANINE AMINOTRANSFERASE 32 U/L (12-78); ALBUMIN 3.1 G/DL (3.4-5.0); ALBUMIN/GLOBULIN RATIO 0.9 (1.1-1.5); ALKALINE PHOSPHATASE 76 IU/L (46-116); ANION GAP 9 (8-16); ASPARTATE AMINO TRANSFERASE 14 U/L (10-37); BILIRUBIN,TOTAL 0.5 MG/DL (0.1-1.0); BLOOD UREA NITROGEN 30 MG/DL (7-18); CALCIUM 8.8 MG/DL (8.5-10.1); CHLORIDE 103 MMOL/L (99-107); CREATININE 1.87 MG/DL (0.60-1.10); GLUCOSE 160 MG/DL (70-104); POTASSIUM 4.7 MMOL/L (3.5-5.1); SODIUM 138 MMOL/L (135-145); TOTAL CARBON DIOXIDE 26.4 MMOL/L (24-32); TOTAL PROTEIN 6.5 G/DL (6.4-8.2); eGFR 35 ML/MIN
[2020-03-26 18:16] LABS: CLARITY,URINE CLEAR (Clear); COLOR,URINE YELLOW (Yellow); GLUCOSE, URINE NEGATIVE (Neg); KETONES,URINE NEGATIVE (Neg); LEUKOCYTE ESTERASE ,URINE NEGATIVE (Neg); NITRITES, URINE NEGATIVE (Neg); OCCULT BLOOD,URINE TRACE-INTACT (Neg); PROTEIN,URINE TRACE mg/dl (Neg); UROBILINOGEN,URINE 0.2 E.U/dL (0.2-1.0)
[2020-03-26 18:32] LABS: UA COLLECTION TYPE URINAL
[2020-03-26 18:44] LABS: BACTERIA,URINE NONE SEEN /HPF (Neg); MUCUS STRANDS NONE SEEN /LPF (Neg); RBC,URINE 0-2 /HPF (0-2); SQUAMOUS EPITHELIAL CELL,UR NONE SEEN /LPF (FEW); WBC,URINE NONE SEEN /HPF (0-4)
[2020-03-26] MEDS ORDERED: PRED20TA PO (18:55)
[2020-03-26] MEDS ORDERED: ALBU8HFA PO (18:55)
[2020-03-26 19:21] VITALS: BP 166/83
== END 2020-03-26 19:10 | disposition home or self-care (01) ==
LOC: ER 16:26
DX: J44.1 Chronic obstructive pulmonary disease with (acute) exacerbation (principal); I50.9 Heart failure, unspecified; I25.10 Atherosclerotic heart disease of native coronary artery without angina pectoris; I11.0 Hypertensive heart disease with heart failure; I25.2 Old myocardial infarction; E11.9 Type 2 diabetes mellitus without complications; Z60.2 Problems related to living alone; Z56.0 Unemployment, unspecified; Z88.8 Allergy status to other drugs, medicaments and biological substances; Z79.01 Long term (current) use of anticoagulants; Z72.89 Other problems related to lifestyle; Z79.4 Long term (current) use of insulin; Z79.899 Other long term (current) drug therapy
CPT/HCPCS: 36415; 71045; 80053; 81001; 83880; 84484; 85025; 93005; 94640; 96374; 99285; J2930; 94760

== ENCOUNTER 2020-03-27 11:37 | Outpatient (CLI) | payer MEDICARE, MEDICAID ==
[~2020-03-27 11:37] MED LIST changes: +ALBU8HFA PO; -ASPI-1071 PO; +ASPI-1475 PO; +FURO-149 PO; -FURO40TA4 PO; +ONDA-103 PO; -ONDA4TAB6 PO; +SITA50TA7 PO
[2020-03-27 12:01] LABS: BASOPHILS % (AUTO) 0.6 % (0-1); EOSINOPHILS % (AUTO) 0 % (0-6); HEMATOCRIT 27.4 % (42.0-52.0); HEMOGLOBIN 8.9 g/dl (14.0-17.9); LYMPHOCYTES # (AUTO) 0.3 X10'3 (1.1-4.8); LYMPHOCYTES % (AUTO) 8.8 % (21-51); MEAN CORPUSCULAR HEMOGLOBIN 26.9 PG (27.0-31.0); MEAN CORPUSCULAR HGB CONC 32.3 g/dL (33.0-36.5); MEAN PLATELET VOLUME 9.7 FL (7.4-10.4); MONOCYTES # (AUTO) 0.3 X10'3 (0-0.9); MONOCYTES % (AUTO) 6.6 % (2-12); NEUTROPHILS # (AUTO) 3.3 X10'3 (1.8-7.7); PLATELET COUNT 101 X10'3 (140-440); RED CELL DISTRIBUTION WIDTH 18.4 % (11.5-14.5); WHITE BLOOD COUNT 3.9 X10'3 (4.5-11.0)
[2020-03-27 12:06] LABS: ALANINE AMINOTRANSFERASE 29 U/L (12-78); ALBUMIN 2.9 G/DL (3.4-5.0); ALBUMIN/GLOBULIN RATIO 1.1 (1.1-1.5); ALKALINE PHOSPHATASE 77 IU/L (46-116); ANION GAP 12 (8-16); ASPARTATE AMINO TRANSFERASE 12 U/L (10-37); BILIRUBIN,TOTAL 0.5 MG/DL (0.1-1.0); BLOOD UREA NITROGEN 37 MG/DL (7-18); BUN/CREATININE RATIO 19.7 (5.4-32.0); CALCIUM 8.2 MG/DL (8.5-10.1); CHLORIDE 102 MMOL/L (99-107); CREATININE 1.88 MG/DL (0.60-1.10); GLUCOSE 382 MG/DL (70-104); POTASSIUM 4.8 MMOL/L (3.5-5.1); SODIUM 136 MMOL/L (135-145); TOTAL CARBON DIOXIDE 22.5 MMOL/L (24-32); TOTAL PROTEIN 5.5 G/DL (6.4-8.2); eGFR 35 ML/MIN
== END 2020-03-27 23:59 | disposition home or self-care (01) ==
LOC: LAB SPEC 11:37
PROVIDERS: ATTEND Family Medicine
DX: J44.1 Chronic obstructive pulmonary disease with (acute) exacerbation (principal); E11.22 Type 2 diabetes mellitus with diabetic chronic kidney disease
CPT/HCPCS: 36415; 80053; 85025

== ENCOUNTER 2020-04-06 15:28 | Emergency (ER) | payer MEDICARE, MEDICAID ==
[~2020-04-06] VITALS: Ht 185.4 cm; Wt 86.3 kg
[~2020-04-06 15:28] MED LIST changes: -PRED20TA PO
[2020-04-06] MEDS ORDERED: HYDR-3965 PO (16:57)
[2020-04-06] MEDS ORDERED: PRED20TA PO (16:57)
[2020-04-06 17:14] VITALS: BP 118/58
--- NOTE | 2020-04-06 17:16 | NUR ---
Patient seen and assessed by Dr. Fuentes.
== END 2020-04-06 17:17 | disposition home or self-care (01) ==
LOC: ER 15:29
DX: J44.1 Chronic obstructive pulmonary disease with (acute) exacerbation (principal); K45.8 Other specified abdominal hernia without obstruction or gangrene; R06.02 Shortness of breath; I25.10 Atherosclerotic heart disease of native coronary artery without angina pectoris; I11.0 Hypertensive heart disease with heart failure; I50.9 Heart failure, unspecified; I25.2 Old myocardial infarction; E11.9 Type 2 diabetes mellitus without complications; F17.210 Nicotine dependence, cigarettes, uncomplicated; Z85.038 Personal history of other malignant neoplasm of large intestine; Z60.2 Problems related to living alone; Z56.0 Unemployment, unspecified; Z91.018 Allergy to other foods; Z88.8 Allergy status to other drugs, medicaments and biological substances; Z79.82 Long term (current) use of aspirin; Z79.4 Long term (current) use of insulin; Z79.899 Other long term (current) drug therapy
CPT/HCPCS: 99284

== ENCOUNTER 2020-05-01 18:29 | Emergency (ER) | payer MEDICARE, MEDICAID ==
[~2020-05-01] VITALS: Ht 185.4 cm; Wt 86.4 kg
[~2020-05-01 18:29] MED LIST changes: -ALBU8HFA PO; +HYDR-3965 PO
[2020-05-01 18:30] VITALS: BP 154/93
[2020-05-01] MEDS ORDERED: methylPREDNISolone sod succ 125mg/2ml vial IV ONE (18:55)
[2020-05-01] MEDS ORDERED: ipratropium/albuterol 3ml nebule NEB ONE (18:55)
[2020-05-01] MEDS ORDERED: triamcinolone acetonide 40mg/ml inj IM ONE (19:00)
== END 2020-05-01 19:54 | disposition home or self-care (01) ==
LOC: ER 18:29
DX: J44.1 Chronic obstructive pulmonary disease with (acute) exacerbation (principal); I25.10 Atherosclerotic heart disease of native coronary artery without angina pectoris; I50.9 Heart failure, unspecified; I11.0 Hypertensive heart disease with heart failure; I25.2 Old myocardial infarction; E11.9 Type 2 diabetes mellitus without complications; Z60.2 Problems related to living alone; Z56.0 Unemployment, unspecified; Z88.8 Allergy status to other drugs, medicaments and biological substances; Z79.01 Long term (current) use of anticoagulants; Z79.82 Long term (current) use of aspirin; Z79.899 Other long term (current) drug therapy
CPT/HCPCS: 94640; 96372; 96374; 99284; J2930; J3301; 93005; 94760